=== PATIENT | female | born 1960 ===

== ENCOUNTER 2025-04-21 18:42 | Inpatient (IN) | payer MEDICARE, BC, SELFPAY ==
[2025-04-21] VITALS (7 sets, daily range): BP systolic 106–125; BP diastolic 60–75; BMI 19.3; BMI 18.9
[2025-04-21 14:00] LABS: Hematocrit 37.2 % (37.0-47.0); Hemoglobin 12.3 g/dL (12.0-16.0); Mean Corp Hgb Conc. 33.1 g/dL (33.0-37.0); Mean Corpuscular Volume 93.0 fL (81.0-99.0); Nucleated Red Blood Cells % 0 %; Platelet Count 488 10^3/uL (130-400); Red Cell Dist. Width 13.7 % (11.5-14.5)
[2025-04-21 14:15] LABS: ALT (SGPT) 27 U/L (0-35); AST (SGOT) 37 U/L (14-36); Albumin 3.8 g/dl (3.5-5.0); Alkaline Phosphatase 363 U/L (38-126); Blood Urea Nitrogen 22 mg/dl (7-17); Calcium 9.1 mg/dl (8.4-10.2); Carbon Dioxide 26 mmol/L (22-30); Chloride 98 mmol/L (98-107); Estimated Creatinine Clearance 47 ml/min; Glucose 166 mg/dl (70-99); Potassium 4.7 mmol/L (3.5-5.1); Sodium 133 mmol/L (135-145); Total Protein 6.6 g/dl (6.3-8.2); eGFR > 60.00
[2025-04-21 14:19] LABS: Magnesium 2.0 mg/dl (1.6-2.3)
[2025-04-21] MEDS: NSS 1000 IV (14:36)
[2025-04-21] MEDS: OMNIPAQUE 50 ML PO (14:36)
[2025-04-21] MEDS: DILAUDID 1 MG IV ×2 (14:36→15:05)
[2025-04-21] MEDS: ZOFRAN 4 MG IV (14:36)
--- NOTE | 2025-04-21 17:30 | ED.GENMED ---
History of Present Illness
General
Chief Complaint: Abdominal Symptoms
Time Seen by Provider: 04/21/25 13:39
History of Present Illness
History of Present Illness:
see MDM
Phy Exam
Physical Exam
Physical Exam:
GENERAL: Alert, uncomfortable, dry
EYE: pupils equal and reactive
NECK: Supple
ENT: o/p clr, dry mouth.
CARDIAC: Regular rate and rhythm .
LUNGS: Clear breath sounds bilaterally, no acute respiratory distress, no wheezes/rales/rhonchi
ABDOMEN: soft, mild distended, very tender diffusely, gadiel lower no r/g, no cvat, normal bowel sounds
NEUROLOGICAL: Alert and oriented, no focal neuro deficits
SKIN: Warm and dry, skin intact.
MUSCULOSKELETAL: No edema, well perfused. neg vinnie's sign
PSYCH: Normal and appropriate interaction.
Course
Orders/Labs/Results
Orders:
Orders
04/21/25 13:48
CMP [Comprehensive Metabolic Panel] Urgent
Complete Blood Count/With Diff Urgent
Magnesium Urgent
Comment: ADD ON
04/21/25 14:03
0.9% Sodium Chloride 1000 ml [Nss] 1,000 ml IV BOLUS
HYDROmorphone [Dilaudid] 1 mg IV NOW STA
Iohexol [Omnipaque] See Protocol PO NOW STA
Ondansetron Injectable [Zofran] 4 mg IV NOW STA
04/21/25 14:04
Add On- LAB Urgent
Tests Added?: magnesium
Electrocardiogram (*1) Urgent
Reason for Study: Abdominal Pain
CT Abd/pel W Iv And Oral Contr Urgent
Comment:
Reason For Exam: diarrhea, lower abd pain, h/o vulvar melanoma
EKG- Treatment ONCE
04/21/25 14:57
HYDROmorphone [Dilaudid] 1 mg IV NOW STA
04/21/25 17:12
C DIFF [C difficile Antigen & Toxins] Urgent
KAYLEIGH Source: Feces/Stool
Specimen Description:
Date Specimen was Collected: 04/21/25
Time Specimen was Collected: 17:10
Stool Culture Urgent
KAYLEIGH Source: Feces/Stool
Specimen Description:
Date Specimen was Collected: 04/21/25
Time Specimen was Collected: 17:10
04/21/25 17:36
HYDROmorphone [Dilaudid] 2 mg IV NOW STA
04/21/25 17:55
HYDROmorphone [Dilaudid] 1 mg .ROUTE .STK-MED ONE
04/21/25 18:02
Admit/Transfer Patient As Directed
Co-Sign Provider:
Level of Care: Inpatient admission
Assign to:: Medical/Surgical
Physician / Group: cori
Diagnosis: proctocolitis
Reason for Hospitalization: proctocolitis
Expected length of stay greater than two midnights?: Yes
ELOS- Estimated Length of Stay in days: 3
I certify the patient meets the requirements for IP care: Yes
PRN Pain Medication Management As Directed
May give lesser potent ordered pain med per pt: Yes
preference::
Protocol:: Medication orders for pain may be administered in a
manner that supports deferring to patient preference
when the pt is:
- Requesting an ordered lesser potent pain medication.
Least to most potent pain medications are defined
as: acetaminophen < NSAID < tramadol < opioids
(morphine, oxycodone, hydromorphone).
- Requesting a lesser dose of the same medication IF
ORDERED.
- Requesting a less intrusive route of administration
if both routes are prescribed by the provider (PO <
IV).
04/21/25 18:04
Code Status As Directed
Resuscitation Status: Full Code
Abnormal Lab Results
04/21/25
13:48
WBC 16.7 H 10^3/uL
(4.8-10.8)
RBC 4.00 L 10^6/uL
(4.20-5.40)
Plt Count 488 H 10^3/uL
(130-400)
Abs Immat Gran (auto) 0.1 H 10^3/uL
(0-0.05)
Absolute Neuts (auto) 14.3 H 10^3/uL
(1.4-6.5)
Absolute Lymphs (auto) 0.8 L 10^3/uL
(1.2-3.4)
Absolute Monos (auto) 1.4 H 10^3/uL
(0.1-0.6)
Neutrophils % 85.8 H %
(42.2-75.2)
Lymphocytes % 4.9 L %
(20.5-51.1)
Sodium 133 L mmol/L
(135-145)
BUN 22 H mg/dl
(7-17)
Glucose 166 H mg/dl
(70-99)
AST 37 H U/L
(14-36)
Alkaline Phosphatase 363 H U/L
(38-126)
04/21/25 13:48
04/21/25 13:48
Vital Signs
Initial and Last Documented VS:
Initial Vital Signs
Temp Pulse Resp BP Pulse Ox
36.9 C 98 16 106/72 95
04/21/25 12:51 04/21/25 12:51 04/21/25 12:51 04/21/25 12:51 04/21/25 12:51
Last Documented Vital Signs
Temp Pulse Resp BP Pulse Ox
36.9 C 98 16 117/75 94
04/21/25 12:51 04/21/25 12:51 04/21/25 12:51 04/21/25 19:00 04/21/25 19:15
MDM/Problems Addressed
Differential Diagnosis Includes:
see MDM
MDM/Problems Addressed:
Note:
CHIEF COMPLAINT(S)
Persistent diarrhea and abdominal pain for two and a half weeks, with associated weight loss and dehydration.
HISTORY OF PRESENT ILLNESS
The patient is a 65-year-old female who presents with a two and a half week history of persistent diarrhea and abdominal pain. The diarrhea initially began with clear mucus but progressed to being more frequent and now predominantly consists of
mucus. The patient reports a significant decrease in oral intake and has been unable to eat for the past four days, resulting in weight loss, noted subjectively by the looseness of her clothing. The patient describes the abdominal pain as being
primarily in the lower abdomen but states it is more generalized at times. She notes that everything she consumes exacerbates her symptoms leading her to refrain from eating or drinking. The patient also experiences significant bloating and
discomfort when supine.
The patient has a history of vulvar cancer diagnosed in 2018, with previous treatment including radiation therapy and prescription medications. She also reports having had Clostridium difficile infection in September during a hospitalization for a
kidney infection. The current symptoms are reported as more painful than her previous C. difficile infection.
The patient has not traveled recently and denies the use of antibiotics in the recent past. She has not been hospitalized for any new condition and is currently not vomiting, although she experiences dry heaving with oral intake.
PAST MEDICAL AND SURGICAL HISTORY
- Vulvar cancer diagnosed in 2018
- Clostridium difficile infection in September during hospitalization for kidney infection
CHRONIC MEDICAL CONDITIONS SIGNIFICANTLY AFFECTING CARE
- History of vulvar cancer
SOCIAL DETERMINANTS AFFECTING HEALTH
The patient mentioned [place] [facility] [place] and grandchildren, indicating family-related social motivations for seeking health improvement.
PHYSICAL EXAM
- Abdomen: Tender upon examination, especially in the lower regions. Discomfort is noted when the patient lays flat. Signs of bloating present.
- Nursing notes reviewed and vital signs reviewed.
PLAN
1. Administer intravenous fluids for dehydration.
2. Provide anti-nausea medication (Zofran) and pain management with Dilaudid.
3. Conduct a computed tomography (CT) scan of the abdomen with oral and intravenous contrast, contingent upon the patient�s ability to tolerate oral intake.
4. Encourage oral intake for CT scan preparation. Adjust plan based on patient�s tolerance and symptoms.
5. Collect stool sample to test for Clostridium difficile, contingent upon bowel movement.
6. Blood work to check for electrolyte disturbances.
7. Consider inpatient observation for supportive care if warranted by findings.
8. Discuss potential diagnosis of colitis and further treatment options after investigation.
DIFFERENTIAL DIAGNOSIS
The Differential Diagnosis includes, in no particular order and is not limited to:
1. Clostridium difficile infection
2. Colitis (infectious, inflammatory)
3. Bowel obstruction
4. Diverticulitis
5. Irritable bowel syndrome with diarrhea
6. Ischemic colitis
7. Small bowel malignancy/metastatic disease
8. Malabsorption syndrome
9. Food intolerance or allergy
10. Electrolyte imbalance-related symptoms
CARE-UPDATE
04/21/25 - 17:25
The patient is experiencing significant pain and will receive additional pain medication. A CT scan has identified a long segment of wall thickening and mucosal enhancement in the mid-sigmoid area, consistent with proctocolitis, which could result
from a viral or bacterial infection. Stool testing is pending for C. diff infection confirmation. The patient also has endometrial thickening, warranting an outpatient ultrasound, and possible lung involvement, which may involve scarring or
infection. The patient will be admitted to the hospital for initial treatment, including IV fluids, bowel rest, pain management, and potentially antibiotics pending test results. If C. diff is confirmed, treatment will likely include vancomycin.
*Pulse Oximetry
SaO2: 95
Oxygen Mode of Delivery: Room air
Patient hypoxic: no (95)
*Critical Care Note
Total Time (30-74mins, 75-104mins- exclusive of procedures): Not Applicable
ED Attending Note
-
Portions of this chart may have been created with voice recognition software.� Occasional wrong word or��sound alike� substitutions may have occurred due to the inherent limitations of voice recognition software.
Discharge Plan
Departure
Patient Disposition: Admit
Date of Disposition: 04/21/25
Time of Disposition: 17:11
Admit to: Med/Surg
Presentation/result/management discussed w/ accepting MD/DO: Hospitalist
Condition: Fair
Covid-19: Not Applicable
Discharge Problem:
Proctocolitis
Interventions
Interventions:
*Risk Screen - Suicide Last Done: 04/21/25 12:53
*General Assessment Last Done: 04/21/25 13:33
*Neglect/Abuse Screening Last Done: 04/21/25 12:53
*ED- Fall Risk Assessment Last Done: 04/21/25 13:33
*ED COVID-19 Vaccine History Last Done: 04/21/25 13:33
NT-Vjviau-Huxvvrfbcv Assessment Last Done: 04/21/25 13:33
--- NOTE | 2025-04-21 17:42 | HPS.HSE ---
Addendum entered and electronically signed by Casey Ryan MD 04/21/25 18:29:
see update note for addendum
Original Note:
Family Physician
-
Family Physician: TARUN Maciel
Chief Complaint
-
abdominal pain, diarrhea
History of Present Illness
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 patient stated watery loose stool with mucous in it. patient stated very
poor oral intake. she has not had anything to eat for past few days. she noticed some weight loss. denied fever, chills. denied n/v. denied AYON, dizzy or syncope.denied chest pain, sob. denied dysuria or hematuria.
CT with proctocolitis. admitting for further management.
Medical History
Past Medical History
Past Medical History: Reports Other
Additional Past Medical History:
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
type 2 DM
HLD
Past Surgical History: Reports Other
Additional Past Surgical History:
b/l mastectomy
Social History
Tobacco: Non-smoker
Alcohol: None
Drug: None
Personal: Single
Living: Alone
Family History
Family History: Not pertinent
Allergies / Home Medications
Allergies reflects when Allergies were last updated in [facility].
Home Medications with original date entered in [facility]
Allergy/Medication List:
Allergies
Allergy/AdvReac Type Severity Reaction Status Date / Time
bacitracin (From Polysporin) Allergy Corneal Verified 06/08/21 06:29
Ulcerations
morphine Allergy Swelling, Verified 06/08/21 06:29
Redness @
IV site
polymyxin B Allergy Corneal Verified 06/08/21 06:29
Ulcerations
Home Medications
hydrocortisone 10 mg tablet 15 mg PO DAILY 06/04/21
lorazepam 0.5 mg tablet 0.5 mg PO HS 06/04/21
pravastatin 20 mg tablet 20 mg PO QPM 06/04/21
acetaminophen 500 mg tablet (Tylenol Extra Strength) 1,000 mg PO Q6HPRN PRN mild pain 06/08/21
fentanyl 25 mcg/hr transdermal patch 1 patch transdermal Q72H 04/21/25
hydromorphone 2 mg tablet 4 mg PO Q8HPRN PRN severe pains 04/21/25
methylphenidate HCl 5 mg tablet 5 mg PO BID 04/21/25
nilotinib HCl 200 mg capsule 200 mg PO BID 04/21/25
ondansetron HCl 8 mg tablet 8 mg PO [id number] PRN nausea 04/21/25
repaglinide 0.5 mg tablet 0.5 mg PO AC 04/21/25
Review of Systems
-
Constitutional: Reports No Symptoms
EENT: Reports No Symptoms
Respiratory: Reports No Symptoms
Cardiac: Reports No Symptoms
Abdomen/GI: Reports Abdominal Pain and Diarrhea
: Reports No Symptoms
Musculoskeletal: Reports No Symptoms
Skin: Reports No Symptoms
Neurological: Reports No Symptoms
Endocrine: Reports No Symptoms
Hematologic/Lymphatic: Reports No Symptoms
Psych: Reports No Symptoms
Physical Exam
Vital Signs
Vital Signs
Temp Pulse Resp BP Pulse Ox
98.4 F 98 16 125/75 95
04/21/25 12:51 04/21/25 12:51 04/21/25 12:51 04/21/25 16:30 04/21/25 17:33
Physical Exam
General: Well Developed, Well Nourished and No Apparent Distress
HEENT: NormoCephalic, Moist mucous membranes and Atraumatic
Respiratory: Clear
Cardiac: S1/S2 and Regular Rhythm; No Murmur or Rub
GI: Soft, Non Tender, Normal Bowel Sounds, Tender and Distended; No Organomegaly
Rectal: Deferred by Provider
Musculoskeletal: No Clubbing, No Cyanosis and No Edema
Skin: No Rash
Neuro: AO x 3 and Nonfocal/grossly intact
Psych: Calm
Laboratory Results
-
04/21/25 13:48
04/21/25 13:48
Laboratory Results
Total Bilirubin 1.1 mg/dl (0.2-1.3) 04/21/25 13:48
AST 37 U/L (14-36) H 04/21/25 13:48
ALT 27 U/L (0-35) 04/21/25 13:48
Alkaline Phosphatase 363 U/L (38-126) H 04/21/25 13:48
Data Reviewed
-
CT Scan: Report Reviewed by me
Lab Data: Labs Reviewed by me
Impression/Plan
-
# Diarrhea, abdominal pain secondary to proctocolitis
- Stool for cultures, C. difficile
- IV Zosyn
- WBC 16.7
-clear liquid diet, advance as tolerated
-Dilaudid prn for pain
- CT abdomen pelvis with impression of There is long segment wall thickening and mucosal hyperenhancement involving the mid sigmoid colon to the rectum consistent with proctocolitis.There is apparent endometrial thickening measuring approximately
1.2 cm. Recommend dedicated pelvic ultrasound for further evaluation.There is bronchiectasis with partial collapse of the right middle lobe as well as scattered airspace opacities within the visualized lung jay which may be
infectious/inflammatory in nature and can be seen with chronic/indolent infection.Mild compression deformity of the L4 vertebral body, likely chronic.
-GI consulted
#hxt of mucosal melanoma with mj to lung
-on oral meds, iv immunotherapy once a month
-fentanyl, hydrocortisone
#HLD
-statin
#type 2 Dm
-sliding scale
-on repaglinide
#DVT Prophylaxis
-Lovenox
#CODE status
-full code
[2025-04-21] MEDS: DILAUDID 2 MG IV (18:02)
--- NOTE | 2025-04-21 18:29 | W.PN.UPDATE ---
Update Note
Progress Note Update
I saw and examined the patient.
The ROBOTIC MAINTENANCE TECHNICIAN Joe's note was reviewed and I agree with the note.
Comment: 65 y/o F remote hx of C. Diff, mucosal Melanoma on chemo/immunotherapy (opduelag) presents with 2.5 week history of abdominal discomfort, diarrhea with mucous. Also reports poor oral intake and weight loss. Denies
fever/chills/nausea/vomiting. No other complaints.
in ER; CT shows proctocolitis. Patient admitted for further evaluation.
Exam:
General: Well Developed, Well Nourished and No Apparent Distress
HEENT: NormoCephalic, Moist mucous membranes and Atraumatic
Respiratory: Clear
Cardiac: S1/S2 and Regular Rhythm; No Murmur or Rub
GI: Soft, Non Tender, Normal Bowel Sounds, Tender and Distended; No Organomegaly
Rectal: Deferred by Provider
Musculoskeletal: No Clubbing, No Cyanosis and No Edema
Skin: No Rash
Neuro: AO x 3 and Nonfocal/grossly intact
Psych: Calm
Assessment: CT with proctocolitis. DDx: viral vs bacterial vs C. diff vs immune mediated colitis given OpDuelag treatment for cancer. Clears. IV Zosyn. C. Diff negative. pending Stool studies otherwise. NPO p MN in case of flex sig tomorrow to
evaluate immune colitis. GI consulted. continue chronic pain meds/patches.
--- NOTE | 2025-04-21 19:49 | EDRN ---
Report received, introduced myself to patient updated them on bed status, call chapman in reach.
[2025-04-21] MEDS: RITALIN PO (21:04)
[2025-04-21 21:27] LABS: Glucose - Point of Care 76 mg/dl (70-99)
[2025-04-21] MEDS: REMOVE DURAGESIC PATCH 1 PATCH REMOVE (21:47)
[2025-04-21] MEDS: ATIVAN 0.5 MG PO (21:47)
[2025-04-21] MEDS: DURAGESIC 25 MCG/HR PATCH 1 PATCH TRANSDERM (21:47)
[2025-04-21] MEDS: ZOSYN 50 IV (21:49)
[2025-04-21] MEDS: TYLENOL 650 MG PO (21:49)
[2025-04-21] MEDS: DILAUDID 0.5 MG IV (21:50)
[2025-04-22] MEDS: ZOSYN 50 IV ×4 (03:46→22:16)
[2025-04-22] MEDS: DILAUDID 0.5 MG IV ×4 (03:48→17:31)
--- NOTE | 2025-04-22 04:36 | PTCARENOTE ---
Patient arrived on unit @2004 via stretcher from ED, ambulate to bed with standby assist. Patient AAOx3 , oriented to unit, skin assessment completed, call chapman within reach.
[2025-04-22] MEDS: ZOFRAN 4 MG IV ×2 (06:33→14:03)
[2025-04-22 07:00] VITALS: BP 91/58
[2025-04-22 07:25] LABS: Glucose - Point of Care 79 mg/dl (70-99)
[2025-04-22] MEDS: NOVOLOG FLEXPEN-LOW RESISTANCE SC ×3 (07:33→18:40)
[2025-04-22 07:55] LABS: Hematocrit 36.6 % (37.0-47.0); Hemoglobin 12.0 g/dL (12.0-16.0); Mean Corp Hgb Conc. 32.8 g/dL (33.0-37.0); Mean Corpuscular Volume 93.6 fL (81.0-99.0); Platelet Count 511 10^3/uL (130-400); Red Cell Dist. Width 13.6 % (11.5-14.5)
[2025-04-22] MEDS: PRANDIN 0.5 MG PO (08:06)
[2025-04-22] MEDS: RITALIN 5 MG PO (08:06)
[2025-04-22] MEDS: TYLENOL 650 MG PO ×3 (08:06→22:16)
[2025-04-22] MEDS: CORTEF 15 MG PO (08:06)
[2025-04-22] MEDS: LR 1000 IV ×2 (08:10→20:29)
[2025-04-22 08:42] LABS: Blood Urea Nitrogen 18 mg/dl (7-17); Calcium 8.7 mg/dl (8.4-10.2); Carbon Dioxide 25 mmol/L (22-30); Chloride 103 mmol/L (98-107); Estimated Creatinine Clearance 46 ml/min; Glucose 73 mg/dl (70-99); Potassium 4.2 mmol/L (3.5-5.1); Sodium 135 mmol/L (135-145); eGFR > 60.00
[2025-04-22 10:23] LABS: Glycohemoglobin (HgbA1c) 5.6 % (4.0-5.6)
--- NOTE | 2025-04-22 10:42 | W.PN.HOSP.TC ---
Today's Communication/Plan
-
See PN
Assessment / Plan
Assessment / Plan
65yo F with PMHx of mucosal melanoma, managed by Dr.Melanie Vasquez in [facility] on Opdualag with most recent injection done few weeks ago came with worsening weakness, mucoid diarrhea, later switched to watery and lower abdominal pain. CT
showed long segment wall thickening and mucosal hyperenhancement involving the mid sigmoid colon to the rectum consistent with proctocolitis. Patient also developed fevers
A/P:
#Proctocolitis
C.diff neg
Stool Cx
GI consult
Cannot exclude immunotherapy-induced colitis - plan for increased steroids if infectious w/u neg
#Fever
2/2 colitis vs other
with immunosuppression reasonable to exclude other causes: Bcx, Ua, Chest XR
Zosyn
#Mucosal melanoma
cont Nilotinib as discussed with
Oncology consult
cont hydrocortisone
#HLD
#Chronic pain
cont home meds
#Malnutrition with cahexia
BMI 18.8
2/2 CA
when appropriate - use Ensure
DVT ppx hep
Full code
I have spent at least 59min reviewing chart, test results, communication with outside provider, consultants and providing direct patient care
Anticipated Discharge: > 48 hours
Subjective/Interval History
-
Date of Service: April 22, 2025
Objective Data
-
Labs:
Laboratory Results
04/22/25
07:21
WBC 13.9 H
Hgb 12.0
Hct 36.6 L
Plt Count 511 H
Sodium 135
Potassium 4.2
Chloride 103
Carbon Dioxide 25
BUN 18 H
Creatinine 0.8
Glucose 73
Calcium 8.7
Vital Signs:
Vital Signs
Temp Pulse Resp BP Pulse Ox
103.0 F H 113 20 91/58 93
04/22/25 07:00 04/22/25 07:00 04/22/25 07:00 04/22/25 07:00 04/22/25 07:00
I&O
04/21/25 04/22/25 04/23/25
06:59 06:59 06:59
Intake Total 200 / 200
Balance 200 / 200
Review of Systems
-
History Source: Patient
All other systems: Reviewed and negative
Physical Exam
-
General: Comfortable
HEENT: Normocephalic
Respiratory: Clear to Auscultation
GI: Soft, Nondistended and Tender
Musculoskeletal: No Clubbing, No Cyanosis and No Edema
Psych: Calm
--- NOTE | 2025-04-22 10:54 | CON.GI ---
Addendum entered and electronically signed by Lillie Bourne MD 04/22/25 17:46:
I saw and examined the patient.
The Resident's note was reviewed and I agree with the note.
Comment: 65-year-old female with history of metastatic melanoma, currently on chemotherapy and immune therapy (Opdualag in last 3 months), presenting with complaints of diarrhea and abdominal cramping in the last week. As per the patient, she has
had frequent stool with mucus in the last 2-1/2 weeks, up to 6 times a day with some nocturnal episodes but in the last week since last she has had lower abdominal cramping and multiple loose watery stool. No blood or mucus. No previous
similar episodes. She has been on chemo for at least 3-1/2 to 4 years and not had diarrhea on that. She was not immune therapy called Opdivo for at least 3 years but recently switched to Opdualag 3 months ago. She has some baseline nausea which
is worse now, no vomiting. No heartburn or trouble swallowing. Prior bowel pattern was 1-2 formed stool a day. No previous history of GI bleeding. Colonoscopy 2 or 3 years ago at [place] unremarkable as per patient. No sick contacts, recent
antibiotics. No other recent new medication.
Labs show mild leukocytosis, mild elevation in AST and alkaline phosphatase elevated at 363. CT scan of the abdomen pelvis with IV and oral contrast showing long segment of wall thickening and mucosal hyperenhancement involving the mid sigmoid
colon to the rectum consistent with proctocolitis. Also noted is moderate colonic stool burden.
Stool studies negative for C. difficile, Cryptosporidium, Giardia, stool cultures pending but many white cells noted.
She is on chronic fentanyl and hydromorphone. Chronic steroid use as well.
Abdominal exam shows mild discomfort in the lower abdomen and mild distention noted as well.
- Acute diarrhea in the last 2-1/2 weeks, no new medication or antibiotic use but recent switch in immunotherapy to Opdualag 3 months ago.
Rule out infectious, inflammatory versus immune mediated diarrhea.
Await stool cultures.
Given mild abdominal distention, will get abdominal x-ray to evaluate for fecal burden in the setting of fentanyl and hydromorphone use.
If diarrhea persists and stool cultures negative, will do flexible sigmoidoscopy to evaluate for immune mediated diarrhea.
Currently on clear liquid diet, will advance as tolerated.
Will follow
Original Note:
Consultation
-
Date/Time Consultation Requested: 04/21/25 20:08
Date/Time Consultation Performed: 04/22/25 10:00
Requesting Provider: Lisbteh Diaz
Performing Provider: Keyur Vásquez DO (Resident); Lillie Bourne MD
Reason for Consultation: Colitis
Medical History
Chief Complaint / HPI
Chief Complaint: Abdominal Discomfort, Diarrhea
History of Present Illness:
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 Patient
states that she was in her usual state of health prior to onset of symptoms. Patient's normal bowel habits consisited of 2 smaller volume, well formed stools per day without diarrhea. Patient states that the abdominal pain started 2 weeks ago and it
is described as crampy and localized to the lower abdomen. It is worse with eating, and better with pain medications. She states that it does not get better with defecation and that it is more constant. Her diarrheal symptoms also started 2 weeks
ago. At first diarrhea consisted of concurrent well formed stools and water, however stools became more consistently runny, progressively worsening to pure liquid stools with mucous but no blood. Otherwise, the patient endoses decreased PO intake
and nausea. She notes that she is usually nauseous at baseline due to chemo regimen, but over the course of this specific illness her nausea has been worse than usual.
With regards to cancer tx regimen, patient notes that she was taking Opdivo until 3 months ago, when she was switched to Opdulag.
Patient denies a family history of colon CA or IBD. Her last colonoscopy was a few years ago, polyps were taken, but were benign. She denies any recent NSAID use.
ED Course:
AFVSS, tender and mildly distended abdomen, WBC 16.7, plt 488, AST/ALT 36/27, Alk Phos 363, T Bili 1.1.
CT Abd/Pelvis: Long segment wall thickening/mucosal hyperenhancement of mid-sigmoid colon to rectum c/w proctocolitis.
C Diff Neg. Patient admitted for IV abx (Zosyn).
Today, the patient states that she is feeling better in that her pain is well controlled on Dilaudid (normally gets for lower back pain), and that her diarrhea episodes have decreased to 3-4 since admission, though she endorses this to not eating.
She says that she is hungry and would like to eat thicker liquids if possible.
Past Medical History
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 Diff)
Past Surgical History: Other (Bilateral mastectomy, x 2, melanoma resection)
Social History
Tobacco: Non-Smoker
Alcohol: None
Family History
Family History: Other (No family history of colon CA or IBD. )
Allergies / Home Medications
Allergy/AdvReac Type Severity Reaction Status Date / Time
bacitracin (From Polysporin) Allergy Corneal Verified 06/08/21 06:29
Ulcerations
morphine Allergy Swelling, Verified 06/08/21 06:29
Redness @
IV site
polymyxin B Allergy Corneal Verified 06/08/21 06:29
Ulcerations
�Medication �Instructions �Recorded
hydrocortisone 10 mg tablet 15 mg PO DAILY 06/04/21
lorazepam 0.5 mg tablet 0.5 mg PO HS 06/04/21
pravastatin 20 mg tablet 20 mg PO QPM 06/04/21
acetaminophen 500 mg tablet 1,000 mg PO Q6HPRN PRN mild pain 06/08/21
(Tylenol Extra Strength)
fentanyl 25 mcg/hr transdermal 1 patch transdermal Q72H 04/21/25
patch
hydromorphone 2 mg tablet 4 mg PO Q8HPRN PRN severe pains 04/21/25
methylphenidate HCl 5 mg tablet 5 mg PO BID 04/21/25
nilotinib HCl 200 mg capsule 200 mg PO BID 04/21/25
ondansetron HCl 8 mg tablet 8 mg PO [id number] PRN nausea 04/21/25
repaglinide 0.5 mg tablet 0.5 mg PO AC 04/21/25
Review of Systems
-
History Source: Patient
All other systems: A 12 pt ROS was Negative except as stated above in HPI
Vital Signs
Temp Pulse Resp BP Pulse Ox
103.0 F H 113 20 91/58 93
04/22/25 07:00 04/22/25 07:00 04/22/25 07:00 04/22/25 07:00 04/22/25 07:00
Physical Exam
Exam
General: No Apparent Distress
HEENT: Anicteric
GI: Soft, Normal Bowel Sounds, Tender (diffusely mild tenderness to palpation with moderate tenderness to palpation in the LLQ) and Distended (mild); Negative Organomegaly
Skin: Warm
Neuro: Awake
Psych: Calm
Results
WBC 13.9 10^3/uL (4.8-10.8) H 04/22/25 07:21
Hgb 12.0 g/dL (12.0-16.0) 04/22/25 07:21
Hct 36.6 % (37.0-47.0) L 04/22/25 07:21
MCV 93.6 fL (81.0-99.0) 04/22/25 07:21
Plt Count 511 10^3/uL (130-400) H 04/22/25 07:21
Absolute Neuts (auto) 14.3 10^3/uL (1.4-6.5) H 04/21/25 13:48
Sodium 135 mmol/L (135-145) 04/22/25 07:21
Potassium 4.2 mmol/L (3.5-5.1) 04/22/25 07:21
Chloride 103 mmol/L (98-107) 04/22/25 07:21
Carbon Dioxide 25 mmol/L (22-30) 04/22/25 07:21
BUN 18 mg/dl (7-17) H 04/22/25 07:21
Creatinine 0.8 mg/dL (0.6-1.0) 04/22/25 07:21
Calcium 8.7 mg/dl (8.4-10.2) 04/22/25 07:21
Total Bilirubin 1.1 mg/dl (0.2-1.3) 04/21/25 13:48
AST 37 U/L (14-36) H 04/21/25 13:48
ALT 27 U/L (0-35) 04/21/25 13:48
Alkaline Phosphatase 363 U/L (38-126) H 04/21/25 13:48
Diagnostic Image Results:
CT Abd/Pelv (04/21):
long segment wall thickening and mucosal hyperenhancement involving the mid sigmoid colon to the rectum consistent with proctocolitis
There is no abdominal aortic aneurysm. Mild atherosclerotic calcifications of the abdominal aorta
Prior GI Procedures:
EGD: unknown.
Colonoscopy: colonoscopy a few years ago, benign polyps (subjective, old records not in [facility])
Assessment / Plan
-
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 In the
emergency department she presented with tender and mildly distended abdomen, WBC 16.7, plt 488, AST/ALT 36/27, Alk Phos 363, T Bili 1.1. CT imaging showed long segment wall thickening and mucosal hyperenhancement involving the mid sigmoid colon to
the rectum consistent with proctocolitis. DDx includes infectious colitis, inflammatory colitis, or immune mediated colitis in the setting of immunotherapy with Opdualag. Ischemic colitis was considered, but CT scan without evidence of arterial
narrowing.
#Proctocolitis
#Nonbloody Mucoid Diarrhea
#Leukocytosis and Fever
#Current Immunotherapy Use
-Continue Abx
-Follow Stool Studies/Cx/WBC
-Follow Stool Frequency/Consistency
-If stool studies are negative and sx don't improve, consider flex sig
-Hold Opdualag/Nilotinib per Heme/Onc
Total Time Spent with Patient (in minutes): 32
Data Reviewed
-
CT Scan: Image Personally Visualized and interpreted, Report Reviewed by me and Discussed with Patient
-
-
Thank you for consultation and allowing me to participate in the patient's care. Please call the comparison shopper GI physician during the after hours with any questions or concerns.
--- NOTE | 2025-04-22 10:56 | PTCARENOTE ---
At 1045 MD was TT to clarify lunch dose of Prandin. Pt is NPO. Med DC'd. See Nov.
--- NOTE | 2025-04-22 11:26 | CON.ONC ---
Consultation
-
Date Consultation Requested: 04/22/25
Date Consultation Performed: 04/22/25
Requesting Provider: Dr. Robert Fay
Performing Provider: Dr. Yuliya Stewart
Reason for Consultation: mucosal melenoma
Impression
Impression
metastatic melanoma on opdualag (nivolmab/relatlimab) plus nilotinib
non-bloody diarrhea -proctocolitis
fever
leukocytosis
Plan
Plan
follow cultures
hold opdualag nivolmab/relatlimab, nilotinib
f/u GI consult
symptom support
OP follow up with Dr. Vasquez for next steps in metastatic melanoma management
Patient History
History of Present Illness
65yo F with PMH early stage breast cancer treated with bilateral mastectomy in 2001 and metastatic melanoma who presented with diarrhea and weakness. She reports that non-bloody diarrhea has been on going for 2 weeks. She became weak and
dehydrations which prompted her to seek further evaluation at . She has abdominal cramping, nausea, and diarrhea that has affected her ability to eat and drink over the past 2 weeks. Initial evaluation was notable for WBC 16.7, Hgb 12.3, platelet
count 488, 000, nml renal function, AST 37, ALT 27, Alk phos 363. Her CT ab/pelvis showed proctocolitis. Her C. diff is negative, stool cultures and blood cultures are pending. She has been admitted and started on IVF and IV abx.
In brief, she sees Dr. Vasquez for management of her metastatic melanoma. She was diagnosed with localized melanoma in the mucosa of her vaginal that was treated with surgical resection around 2018. She was monitored with serial imaging and
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 She was treated with Ipi/Nivo x 4 cycles c/b IO adrenal insufficiency. She continues to take hydrocortisone 15mg daily. She is being treated with opdualag
(nivolmab/relatlimab) plus nilotinib. She is on chronic pain medications fentanyl patch and hydromorphone prn.
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
Tmax 103F, no hypoxia or hypotension
Past-Medical/Surgical History
PMH HLD, metastatic melanoma to lungs, breast cancer, type 2 DM
PSH b/l mastectomy
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
Family non contributory
Patient Medication
�Medication �Instructions �Recorded �Confirmed �Last Taken �Type
hydrocortisone 10 mg tablet 15 mg PO DAILY 06/04/21 04/21/25 04/21/25 History
lorazepam 0.5 mg tablet 0.5 mg PO HS 06/04/21 04/21/25 04/20/25 History
pravastatin 20 mg tablet 20 mg PO QPM 06/04/21 04/21/25 06/07/21 08:00 History
acetaminophen 500 mg tablet 1,000 mg PO Q6HPRN PRN mild pain 06/08/21 04/21/25 04/21/25 History
(Tylenol Extra Strength)
fentanyl 25 mcg/hr transdermal 1 patch transdermal Q72H 04/21/25 04/21/25 04/21/25 History
patch
hydromorphone 2 mg tablet 4 mg PO Q8HPRN PRN severe pains 04/21/25 04/21/25 Unknown History
methylphenidate HCl 5 mg tablet 5 mg PO BID 04/21/25 04/21/25 Unknown History
nilotinib HCl 200 mg capsule 200 mg PO BID 04/21/25 04/21/25 04/21/25 History
ondansetron HCl 8 mg tablet 8 mg PO [id number] PRN nausea 04/21/25 04/21/25 Unknown History
repaglinide 0.5 mg tablet 0.5 mg PO AC 04/21/25 04/21/25 Unknown History
Active Medications
Generic Name Dose Route Start Last Admin
Trade Name Freq PRN Reason Stop Dose Admin
Acetaminophen 650 mg 04/21/25 20:08 04/22/25 08:06
Acetaminophen 325 Mg Tablet PO 05/19/25 20:07 650 mg
Q4HPRN PRN Administration
mild pain/AYON/temp> 100.4F
Dextrose 12.5 grams 04/21/25 20:08
Dextrose 50% (0.5 Grams/Ml) 50 Ml Syringe IV 05/19/25 20:07
[id number] PRN
hypoglycemia
Protocol
Fentanyl 1 patch 04/21/25 22:00 04/21/25 21:47
Fentanyl 25 Mcg/Hr Patch TRANSDERM 05/05/25 21:59 1 patch
Q72H IRMA Administration
Glucagon 1 mg 04/21/25 20:08
Glucagon 1 Mg Vial IM 05/19/25 20:07
PRN PRN
hypoglycemia
Protocol
Heparin Sodium 5,000 units 04/22/25 16:00
Heparin 5,000 Units/Ml 1 Ml Vial SC 05/20/25 15:59
Q8 IRMA
Hydrocortisone 15 mg 04/22/25 08:00 04/22/25 08:06
Hydrocortisone 10 Mg Tablet PO 05/20/25 07:59 15 mg
DAILY IRMA Administration
Hydromorphone HCl 0.5 mg 04/21/25 20:08 04/22/25 08:16
Hydromorphone 0.5 Mg/0.5 Ml Syringe IV 05/05/25 20:07 0.5 mg
Q4HPRN PRN Administration
severe pain
Piperacillin Sod/Tazobactam Sod 3.375 gram in 50 mls @ 100 mls/hr 04/21/25 22:00 04/22/25 10:21
Zosyn IV 50 mls
Q6H IRMA Administration
Lactated Ringer's 1,000 mls @ 100 mls/hr 04/22/25 08:00 04/22/25 08:10
Lr IV 1,000 mls
.Q10H IRMA Administration
Insulin Aspart 0 units 04/22/25 06:30 04/22/25 07:33
Insulin Aspart Low Resistance 300 Units/3 Ml Pen.Injctr SC 05/20/25 06:29 Not Given
Q6 IRMA
Protocol
Lorazepam 0.5 mg 04/21/25 22:00 04/21/25 21:47
Lorazepam 0.5 Mg Tablet PO 05/19/25 21:59 0.5 mg
HS IRMA Administration
Methylphenidate HCl 5 mg 04/21/25 20:08 04/22/25 08:06
Methylphenidate 5 Mg Tablet PO 05/05/25 20:07 5 mg
BID AT 0800,1700 IRMA Administration
Non-Formulary Medication 200 mg 04/22/25 10:45
Nilotinib PO 05/20/25 10:44
BID IRMA
Patch Removal 0 patch 04/21/25 22:00 04/21/25 21:47
Remove Fentanyl Patch REMOVE 05/05/25 21:59 1 patch
Q72H IRMA Administration
Pravastatin Sodium 20 mg 04/22/25 18:00
Pravastatin 20 Mg Tablet PO 05/20/25 17:59
QPM IRMA
Sodium Chloride 0 flush 04/21/25 21:00
Sodium Chloride 0.9% (Flush) Syringe IV 05/19/25 20:59
PER PROTOCOL IRMA
Review of Systems
-
ROS is notable for HPI, otherwise negative
Physical Exam
-
General: Thin, No Apparent Distress
HEENT: Moist mucous membranes
Respiratory: Clear
Cardiac: S1/S2 and Regular Rhythm
GI: Soft, TTP
Integ no rash
Neuro: AO x 3
Psych: Calm
Labs
Lab Results
WBC 13.9 10^3/uL (4.8-10.8) H 04/22/25 07:21
RBC 3.91 10^6/uL (4.20-5.40) L 04/22/25 07:21
Hgb 12.0 g/dL (12.0-16.0) 04/22/25 07:21
Hct 36.6 % (37.0-47.0) L 04/22/25 07:21
MCV 93.6 fL (81.0-99.0) 04/22/25 07:21
MCH 30.7 pg (27.0-31.0) 04/22/25 07:21
MCHC 32.8 g/dL (33.0-37.0) L 04/22/25 07:21
RDW 13.6 % (11.5-14.5) 04/22/25 07:21
Plt Count 511 10^3/uL (130-400) H 04/22/25 07:21
MPV 10.1 fL (7.4-10.4) 04/22/25 07:21
Abs Immat Gran (auto) 0.1 10^3/uL (0-0.05) H 04/21/25 13:48
Absolute Neuts (auto) 14.3 10^3/uL (1.4-6.5) H 04/21/25 13:48
Absolute Lymphs (auto) 0.8 10^3/uL (1.2-3.4) L 04/21/25 13:48
Absolute Monos (auto) 1.4 10^3/uL (0.1-0.6) H 04/21/25 13:48
Absolute Eos (auto) 0.0 10^3/uL (0-0.7) 04/21/25 13:48
Absolute Basos (auto) 0.1 10^3/uL (0-0.2) 04/21/25 13:48
Immature Gran % 0.4 % (0-0.5) 04/21/25 13:48
Neutrophils % 85.8 % (42.2-75.2) H 04/21/25 13:48
Lymphocytes % 4.9 % (20.5-51.1) L 04/21/25 13:48
Monocytes % 8.2 % (1.7-9.3) 04/21/25 13:48
Eosinophils % 0.2 % (0-6) 04/21/25 13:48
Basophils % 0.5 % (0-2) 04/21/25 13:48
Creatinine 0.8 mg/dL (0.6-1.0) 04/22/25 07:21
Vital Signs
Vital Signs
Temp Pulse Resp BP Pulse Ox
103.0 F H 113 20 91/58 93
04/22/25 07:00 04/22/25 07:00 04/22/25 07:00 04/22/25 07:00 04/22/25 07:00
[2025-04-22 11:58] LABS: Glucose - Point of Care 42 mg/dl (70-99)
[2025-04-22] MEDS: DEXTROSE 50% SYRINGE 12.5 GRAMS IV (11:59)
[2025-04-22 12:24] LABS: Glucose - Point of Care 130 mg/dl (70-99)
[2025-04-22 12:36] VITALS: BMI 18.9
[2025-04-22 13:18] LABS: Urine Character Clear (Clear)
--- NOTE | 2025-04-22 13:37 | PTCARENOTE ---
Pt c/o unrelieved nausea. made aware, new order provided, see MAR.
[2025-04-22 14:27] LABS: Glucose - Point of Care 78 mg/dl (70-99)
[2025-04-22 15:00] VITALS: BP 98/51
[2025-04-22 15:10] LABS: Urine Squamous Cell 16-20 /LPF (Few)
[2025-04-22 15:11] LABS: Urine Red Blood Cell >100 /HPF (0-2)
[2025-04-22 16:09] LABS: Glucose - Point of Care 106 mg/dl (70-99)
[2025-04-22] MEDS: HEPARIN 5000 UNITS SC (16:18)
--- NOTE | 2025-04-22 17:00 | PTCARENOTE ---
Pt c/o of unrelieved pain with 0.5 mg Dilaudid Q4H. Pain was 7/10 in the lower abdomen. Tylenol was given for breakthrough pain with no relieve. TT , new order provided. See MAR
[2025-04-22] MEDS: RITALIN PO (18:05)
[2025-04-22] MEDS: PRAVACHOL 20 MG PO (18:40)
[2025-04-22 21:51] LABS: Glucose - Point of Care 81 mg/dl (70-99)
[2025-04-22] MEDS: ATIVAN 0.5 MG PO (22:16)
[2025-04-22 23:00] VITALS: BP 145/86
[2025-04-23] VITALS (67 sets, daily range): BP systolic 55–139; BP diastolic 40–96; PULSE 160
[2025-04-23] MEDS: HEPARIN 5000 UNITS SC ×3 (00:19→23:18)
[2025-04-23 00:23] LABS: Glucose - Point of Care 83 mg/dl (70-99)
[2025-04-23] MEDS: NOVOLOG FLEXPEN-LOW RESISTANCE SC ×2 (00:26→06:18)
[2025-04-23] MEDS: ZOSYN 50 IV ×2 (04:21→09:42)
[2025-04-23] MEDS: LR 1000 IV (04:21)
[2025-04-23 04:23] LABS: Glucose - Point of Care 50 mg/dl (70-99)
[2025-04-23 05:17] LABS: Glucose - Point of Care 63 mg/dl (70-99)
[2025-04-23 05:38] LABS: Glucose - Point of Care 71 mg/dl (70-99)
[2025-04-23 06:45] LABS: Hematocrit 36.9 % (37.0-47.0); Hemoglobin 12.3 g/dL (12.0-16.0); Mean Corp Hgb Conc. 33.3 g/dL (33.0-37.0); Mean Corpuscular Volume 92.3 fL (81.0-99.0); Platelet Count 487 10^3/uL (130-400); Red Cell Dist. Width 13.4 % (11.5-14.5)
[2025-04-23 06:59] LABS: ALT (SGPT) 17 U/L (0-35); AST (SGOT) 30 U/L (14-36); Albumin 2.8 g/dl (3.5-5.0); Alkaline Phosphatase 235 U/L (38-126); Blood Urea Nitrogen 24 mg/dl (7-17); Calcium 8.0 mg/dl (8.4-10.2); Carbon Dioxide 22 mmol/L (22-30); Chloride 104 mmol/L (98-107); Estimated Creatinine Clearance 28 ml/min; Glucose 84 mg/dl (70-99); Magnesium 1.9 mg/dl (1.6-2.3); Potassium 3.6 mmol/L (3.5-5.1); Sodium 135 mmol/L (135-145); Total Protein 5.2 g/dl (6.3-8.2); eGFR 45.35
[2025-04-23 07:47] LABS: Glucose - Point of Care 63 mg/dl (70-99)
[2025-04-23 08:20] LABS: Absolute Neutrophils -Man Diff 5.3 10^3/uL (1.4-6.5); Platelets Checked Yes
[2025-04-23 08:21] LABS: Normal RBC Morphology Yes; Total Cells Counted 100
--- NOTE | 2025-04-23 08:29 | W.PN.HOSP.TC ---
Today's Communication/Plan
-
IMU as with hypotension nurses on the floor uncomfortable for GMF mgmt
cont ABx
BOlus and increase IVF
Urine studies
Bladder scans for retention, if present - Urology for Maravilla since RN was unable to place
Acapella, pulm consult
Sputum Cx
serial BMP
Stress dose steroids
Assessment / Plan
Assessment / Plan
65yo F with PMHx of iatrogenic adrenal insufficiency, chronic pain, vulvar melanoma s/p RT and resection, managed by Dr.Melanie Vasquez in [facility] on Opdualag with most recent injection done few weeks ago came with worsening weakness,
mucoid diarrhea, later switched to watery and lower abdominal pain. CT showed long segment wall thickening and mucosal hyperenhancement involving the mid sigmoid colon to the rectum consistent with proctocolitis. Patient also developed fevers and
hypotension on 04/23/25 with that increased steroids to stress level doses, increased hydration
A/P:
#Proctocolitis with watery diarrhea - overflow diarrhea?
#Moderate/severe constipation
#Ileus, concern for developing SBO
most likely opioid-induced constipation - attempt Relistor
FMT
while no nausea/vomiting - avoid NG tube
C.diff neg
Stool Cx NTD
Multiple WBC in stool
GI consult
Cannot exclude immunotherapy-induced colitis
GI has no concern for ischemic colitis with no significant mesenteric vessel obstruction on CT reading
check lactate
#Fever, possible UTI
2/2 colitis vs other
with immunosuppression
Bcx NTD
XR with RML concern for infection
UA with concern for UTI - Ucx pending
Zosyn
#JACLYN
suspect multiple bowel movements caused dehydration
increase IVF
Urine studies
Follow I&O, bladder scan (Maravilla could not be placed by RN due to inability to pass the catheter, patient with Hx of abdominal Sx)
#Hypotension
probable volume loss
aggressive hydration
Stress dose steroids due to HX of steroid dependency
#DM with hypoglycemia
most likely hypoglycemia 2/2 poor oral intake with abdominal pain
stop insulin
cont Accuchecks
D5 fluids
#Vulvar melanoma with mets to lungs
#Chemotherapy-induced Adrenal insufficiency
S/P RT and surgical resection
discussed with : patient with poor prognosis
hold Nilotinib
Oncology consult
cont hydrocortisone
#HLD
#Chronic pain with opioid dependency
cont home meds
#Malnutrition with cachexia
BMI 18.8
2/2 CA
when appropriate - use Ensure
#Acute hypoxic insufficiency
#Bronchiectasis with RML partial collapse, can be infectious
Abx - on zosyn
Sputum Cx
Pulm consult
acapella
#endometrial thickening measuring approximately 1.2 cm
eventual TV US, most likely outpatient
#Mild compression deformity of the L4 vertebral body
chronic
#Elevated Alk.phos
CT ABD: Bile Ducts: Within normal limits. Gallbladder: Within normal limits. - therefore most likely 2/2 cancer
DVT ppx SCDs (due to dark colored stools)
Full code
I have spent at least 59min critical care time reviewing chart, test results, communication with consultants and providing direct patient care
Anticipated Discharge: > 48 hours
Subjective/Interval History
-
Date of Service: April 23, 2025
Objective Data
-
Labs:
Laboratory Results
04/23/25
06:08
WBC 7.9
Hgb 12.3
Hct 36.9 L
Plt Count 487 H
Sodium 135
Potassium 3.6
Chloride 104
Carbon Dioxide 22
BUN 24 H
Creatinine 1.3 H
Glucose 84
Calcium 8.0 L
Total Bilirubin 1.3
AST 30
ALT 17
Alkaline Phosphatase 235 H
Vital Signs:
Vital Signs
Temp Pulse Resp BP Pulse Ox
99.7 F 125 17 145/86 96
04/22/25 23:00 04/22/25 23:00 04/22/25 23:00 04/22/25 23:00 04/22/25 23:00
I&O
04/22/25 04/23/25 04/24/25
06:59 06:59 06:59
Intake Total 440 / 440
Balance 440 / 440
Review of Systems
-
History Source: Patient
Abdomen/GI: Reports Abdominal Pain and Diarrhea; Denies Nausea or Vomiting
Physical Exam
-
General: Appears in Distress; Negative Fever or Chills
HEENT: Normocephalic
Respiratory: Clear to Auscultation; Negative Wheezes or Crackles
Cardiac: Regular Rhythm and Tachycardic
GI: Soft, Nondistended and Tender
Musculoskeletal: No Clubbing, No Cyanosis and No Edema
Neuro: Awake, Alert, Oriented and AO x 3
Psych: Calm
--- NOTE | 2025-04-23 08:44 | W.PN.ONC2 ---
Today's Communication / Plan
-
critical management per primary service
monitor stool output -hopefully improved on hyrocortisone
agree with IV abx
appreciate GI input
Impression
Impression
vulvar melanoma, KIT-mutated, and metastatic, on nilotinib (oral TKI) and Opdualag (immunotherapy, s/p 3 cycles)
non-bloody diarrhea -proctocolitis -concern for immune meditated colitis
possible ileus on ab xray 04/23
fever
leukocytosis
adrenal insuff from prior immunotherapy, takes hydrocortisone 15mg daily
JACLYN
hypotension
Plan
Plan
transferred to higher level of care for pressor support
started hydrocortisone 200mg x 1 followed by 50mg Q8 which is equivalent to 37.5mg prednisone (approximately 1mg/kg/day prednisone)
follow cultures -on IV abx
hold opdualag (nivolmab/relatlimab), nilotinib
GI to consider flex sig
OP follow up with Dr. Vasquez for next steps in metastatic melanoma management
Subjective/Objective
Subjective
diarrhea/ab cramping persists -Fecal management in place
transfered to IMU this morning for hypotension
Vital Signs:
Vital Signs
Temp Pulse Resp BP Pulse Ox
99.7 F 125 17 145/86 96
04/22/25 23:00 04/22/25 23:00 04/22/25 23:00 04/22/25 23:00 04/22/25 23:00
Lab Results:
Laboratory Data
WBC 7.9 10^3/uL (4.8-10.8) 04/23/25 06:08
Hgb 12.3 g/dL (12.0-16.0) 04/23/25 06:08
Plt Count 487 10^3/uL (130-400) H 04/23/25 06:08
eGFR 45.35 04/23/25 06:08
Physical Exam
HEENT: Moist Mucous Membranes; No Jaundice
Pulmonary: Other (unlabored)
GI: Soft
Extremities: Pulses Present
--- NOTE | 2025-04-23 08:46 | CON.PUL ---
Consultation
Consultation Request
Date/Time Consultation Requested: 04/23/2025-8 AM
Date/Time Consultation Performed: 04/23/2025-8:30 AM
Requesting Provider: Hospitalist
Performing Provider: Dr. Michaels
Reason for Consultation: Shortness of breath
Medical History
-
Chief Complaint: Shortness of breath/bronchiectasis
History of Present Illness:
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
hypotension and potential need for norepinephrine-pulmonary consulted for shortness of breath/bronchiectasis 04/23/2025. Patient states she was diagnosed with bronchiectasis many years ago. She had followed with cardiopulmonary technician but has not seen them
in over 3 years because she has been stable. She is not on any mucus clearing devices at home. She does not have recurrent respiratory tract infections. Major complaint continues to be watery diarrhea. She denies any shortness of breath at rest,
productive cough, chest congestion, pleurisy, and admits to some abdominal pain but no leg swelling or focal weakness.
Past Medical History
Past Medical History: None (Mucosal melanoma with metastatic disease to the lungs/left thoracotomy, resection left upper lobe lung mass 05/2021. Diabetes. Hyperlipidemia. Breast cancer/bilateral mastectomy. GERD.)
Social History
Tobacco: Non-smoker
Alcohol: None
Drug: None
Personal: Single
Occupational Exposures: no known asbestos exposure
Environmental Exposures: No known tuberculosis exposure
Family History
Family History: Reviewed & Not Pertinent
Allergies / Home Medications
Allergies
Allergy/AdvReac Type Severity Reaction Status Date / Time
bacitracin (From Polysporin) Allergy Corneal Verified 06/08/21 06:29
Ulcerations
morphine Allergy Swelling, Verified 06/08/21 06:29
Redness @
IV site
polymyxin B Allergy Corneal Verified 06/08/21 06:29
Ulcerations
Home Medications
�Medication �Instructions �Recorded �Confirmed �Last Taken �Type
hydrocortisone 10 mg tablet 15 mg PO DAILY Anti-Inflammatory 06/04/21 04/21/25 04/21/25 History
lorazepam 0.5 mg tablet 0.5 mg PO HS anxiety 06/04/21 04/21/25 04/20/25 History
pravastatin 20 mg tablet 20 mg PO QPM cholesterol 06/04/21 04/21/25 06/07/21 08:00 History
acetaminophen 500 mg tablet 1,000 mg PO Q6HPRN PRN mild pain 06/08/21 04/21/25 04/21/25 History
(Tylenol Extra Strength)
fentanyl 25 mcg/hr transdermal 1 patch transdermal Q72H Pain 04/21/25 04/21/25 04/21/25 History
patch
hydromorphone 2 mg tablet 4 mg PO Q8HPRN PRN severe pain 04/21/25 04/21/25 Unknown History
methylphenidate HCl 5 mg tablet 5 mg PO BID Neurological Condition 04/21/25 04/21/25 Unknown History
nilotinib HCl 200 mg capsule 200 mg PO BID Cancer-melanoma 04/21/25 04/21/25 04/21/25 History
ondansetron HCl 8 mg tablet 8 mg PO [id number] PRN nausea 04/21/25 04/21/25 Unknown History
repaglinide 0.5 mg tablet 0.5 mg PO AC Diabetes 04/21/25 04/21/25 Unknown History
Review of Systems
-
Unable to Obtain full review of systems at this time due to: Other ( Per HPI)
Vitals / Labs / Diagnostic Testing
Vital Signs
Temp Pulse Resp BP Pulse Ox
99.7 F 125 17 145/86 96
04/22/25 23:00 04/22/25 23:00 04/22/25 23:00 04/22/25 23:00 04/22/25 23:00
Lab Data
04/23/25 06:08
04/23/25 06:08
Microbiology
04/22/25 12:59 Feces/Stool Stool Leukocytes - Final
04/22/25 12:59 Feces/Stool Cryptosporidium/Giardia - Final
Negative for Cryptosporidium and/or Giardia Lamblia
antigens.
04/21/25 17:12 Feces/Stool Salmonella/Shigella Culture - Preliminary
Culture in Progress
04/21/25 17:12 Feces/Stool Campylobacter Culture - Preliminary
Culture in Progress
04/21/25 17:12 Feces/Stool C. difficile GDH Antigen & Toxins - Final
Negative for toxigenic C.difficile
Diagnostic Testing:
Physical Exam
-
Exam:
well-nourished and well-developed in no apparent distress
HEENT-atraumatic, normocephalic
Neck-supple, no JVD, no bruit
Heart-regular rate and rhythm-no murmurs, rubs or gallops
Chest-clear to auscultation, no wheezes, rare crackles at the right greater than left base
Back-no tenderness
Abdomen-soft, tender, nondistended
Extremities-no cyanosis, clubbing, edema and good peripheral pulses
Integument-intact, no rashes, lesions or ecchymosis
Neurology-alert and oriented, nonfocal motor and sensory exam
Assessment
-
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
hypotension and potential need for norepinephrine-pulmonary consulted for shortness of breath/bronchiectasis 04/23/2025.
Proctocolitis/diarrhea/hypotension
Ileus
Bronchiectasis
Adrenal insufficiency from prior immunotherapy-takes hydrocortisone 15 mg daily
JACLYN
Leukocytosis
Conditions present prior to admission:
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
Adrenal insufficiency
Diabetes.
Hyperlipidemia.
Breast cancer/bilateral mastectomy.
GERD.
Plan
Patient has history of chronic bronchiectasis and saw Dr. Cook at [facility] in the past not on specific therapy-'Trelegy and albuterol as needed', not on vest therapy, etc. and was told to follow-up as needed
Respiratory status relatively stable
Radiographs summarized below
Supplemental oxygen as needed
Aspiration precautions
Mucolytic's as needed
Mucus clearing devices as needed
Follow radiographically
GI evaluation
Proctocolitis noted
Intravenous fluid resuscitation-receiving 3 L of hypertonic saline
Norepinephrine as needed
Check cultures
Empiric antibiotics-vancomycin and Zosyn initiated
Follow renal function
Replace electrolytes
Nephrology evaluation if renal function does not improve
Oncology evaluation ongoing-correspondence reviewed
History of adrenal insufficiency-hydrocortisone initiated
DVT prophylaxis-on subcu heparin
Nutrition
Early mobilization
Reviewed with nursing and primary team
Diagnostic data:
Chest x-ray 06/10/2021-small left pneumothorax
Chest x-ray 04/22/2025-large amount of asymmetrical opacification right upper lung field appears new from 2020
CT abdomen and pelvis 04/21/25-bronchiectasis with partial collapse right middle lobe endometrial thickening approximately 1.2 cm, dedicated pelvic ultrasound recommended, mild compression deformity L4, long segment wall thickening and mucosal
hyperenhancement involving the mid sigmoid colon and rectum consistent with proctocolitis
Data Reviewed
-
EKG: Report reviewed by me
Radiology: Image personally visualized and interpreted and Report reviewed by me
CT Scan: Report reviewed by me
Medical Tests (Nuc Med, Echo etc): Report reviewed by me
Labs: Labs reviewed by me
Old Records: Reviewed
Total Time Spent with Patient (in minutes): 65
[2025-04-23] MEDS: NSS 1000 IV ×3 (08:55→13:21)
[2025-04-23] MEDS: SOLU-CORTEF 200 MG IV (09:03)
--- NOTE | 2025-04-23 09:07 | PTCARENOTE ---
assumed care for this pt, during AM VS tech reported BP 74/38. Manualy check reading was 74/38 HR 130's 90% RA. 2L applied, contacted attending, who came at bedside. stat orders. attempted morgan placement, unsuccessful pt reports surgical hx of her
urethra. IVF bolus ordered, discussed if pt does need to be transferred, UM involved. pt transferred to IMU level of care R/T hypoxia, hypotension and increased work of breathing. Pt in agreement with POC. expressed understanding, called report to
IMU.
--- NOTE | 2025-04-23 09:12 | PTCARENOTE ---
Pt from 3 weast AAOX3 hr 15
--- NOTE | 2025-04-23 09:13 | PTCARENOTE ---
Pt AAOx3 with hr 133 bp 121/96 with diarrhea order for FMS Pt pale IV flluids DC . Dr Arciniega saw pt
[2025-04-23] MEDS: SENOKOT-S 1 TABLET PO ×2 (09:42→20:41)
--- NOTE | 2025-04-23 09:53 | PTCARENOTE ---
FMS inserted without incident
--- NOTE | 2025-04-23 10:11 | PTCARENOTE ---
Pt bp now 69/50 feels weak and tired and is pale.DR Arrieta notified
[2025-04-23] MEDS: LEVOPHED 250 IV ×3 (10:16→21:32)
--- NOTE | 2025-04-23 10:20 | PTCARENOTE ---
Norepinephrine statred at 4 for bp 69/50
[2025-04-23] MEDS: TYLENOL 650 MG PO (10:26)
[2025-04-23] MEDS: RELISTOR 8 MG SC (10:28)
[2025-04-23] MEDS: VANCOCIN 200 IV (10:37)
--- NOTE | 2025-04-23 11:36 | W.PN.UPDATE ---
Update Note
Progress Note Update
discussed withgen Madsen in details
switching to merrem with developing shock
Fentanyl removed in order to relieve constipation - discussed with patient and she is agreeable
--- NOTE | 2025-04-23 11:46 | PTCARENOTE ---
Pt map [address]rieta aware , pt to ICU report to Manuel DURAN.
--- NOTE | 2025-04-23 12:17 | PN.CDI ---
CDI
- -
CDI:
Physician Documentation Request
Admit Date: 04/21/25 18:42
Dear Doctor Nya,
04/22 and 04/23 hospitalist progress notes include a diagnosis of Malnutrition
To ensure the quality of the medical record, based on the above information and the recognized standards for malnutrition , could you please verify in your progress notes which of the following responses best reflects the patient's nutritional
status:
(Specify severity) Malnutrition is/was present and is a clinical diagnosis (please provide additional support in the medical record)
No nutritional deficiency
Other (please specify)
[place] Criteria ([facility] Hospitalist 2017)
2 or more criteria must be present for either
non severe or severe malnutrition
Note that the criteria differs related to the
presence of an acute or chronic illness
Acute Illness Chronic Illness
Energy Intake Non Severe: <75% for >7 days Non Severe: <75% for >1 month
Severe: <50% for >5 days Severe: <75% for >1 month
Weight Loss Non Severe: 1-2% over 1 week Non Severe: 5% over 1 month
5% over 1 month 7.5% over 3 months
7.5% over 3 months 10% over 6 months
1 year N/A 20% over 1 year
Severe: >2% over 1 week Severe: >5% over 1 month
>5% over 1 month >7.5% over 3 months
>7.5% over 3 months >10% over 6 months
1 year N/A >20% over 1 year
Body Fat Non Severe: Mild Decrease Non Severe: Mild Loss
Severe: Moderate Decrease Severe: Severe Loss
Muscle Mass Non Severe: Mild Decrease Non Severe: Mild Loss
Severe: Moderate Decrease Severe: Severe Loss
Fluid Accumulation Non Severe: Mild Accumulation Non Severe: Mild Accumulation
Severe: Moderate to severe Severe: Moderate to severe
accumulation accumulation
Reduced Lamps Tester And Inspector Strength Non Severe: N/A Non Severe: N/A
Severe: Measurably reduced Severe: Measurably reduced
Use of terms such as suspected, likely, concern for, or probable (associated with a specific diagnosis that is being evaluated, monitored, or treated as if it exists) are acceptable and can be coded in the inpatient setting, when documented at the
time of discharge.
Thank you,
Gita Alcaraz RN, BSN
CDI Specialist
tiger text
Please use your independent medical judgment in providing your response.
--- NOTE | 2025-04-23 12:20 | PTCARENOTE ---
Pt received into Rm [id number] via bed from IMU at 1140. Pt drowsy but arousable to name. Reports generalized abdominal tenderness w/ palpation- most notably in lower quadrants. Abdomen distended. Bowel sounds normoactive. FMS in place w/ liquid dark
brown BM. Pt denies need to urinate. Ox3. Answers questions appropriately, dozes off when undisturbed. Received w/ Levophed gtt infusing at 10mcg/min with MAP goal >65. Titrating Levophed to achieve ordered parameters. Received on O2 at 2l/min w/
POx 98%. Tachypneic w/ RR mid 30's. Denies feeling SOB. Respirations shallow. Physical assessment completed as documented. Pt and her son updated on plan of care/pt's current condition, all questions answered and emotional support provided.
[2025-04-23] MEDS: PITRESSIN 100 IV ×2 (13:07→20:54)
--- NOTE | 2025-04-23 13:16 | PHA.VAN.IN ---
Assessment
- Assessment
Renal Function: SCR Appears Elevated from baseline (1.3 vs 0.8 on admission)
Concomitant Antimicrobials: meropenem
Plan
- Plan
Initial / Loading Dose: 1000mg - 04/23 10:37
Maintenance Regimen: dosing by level - give 500mg x1 at 1800 to help ensure therapeutic level
Monitoring: random 04/24 0600
Pharmacokinetics Vancomycin I
- -
Patient Age: 65
Patient Sex: Female
Vancomycin Day #: 1
Indication: Genito-Urinary Tract
Requesting Provider: Dr. Fay
Pertinent Antimicrobial Allergies:
bacitracin/polymyxin B - corneal ulcerations
Height / Weight:
Height 4 ft 11 in
Actual Weight 42.32 kg
IBW in k.5
Pertinent Past Medical History: BMI ~18.8, Bronchiectasis
- Vital Signs / Lab Results
Temp Pulse Resp BP Pulse Ox
99.6 F 111 38 61/44 97
04/23/25 11:14 04/23/25 11:45 04/23/25 11:45 04/23/25 11:45 04/23/25 11:45
Lab Results - Hematology
04/21/25 04/22/25 04/23/25
13:48 07:21 06:08
WBC 16.7 H 13.9 H 7.9
Band Neutrophils 49 H
Lab Results - Chemistry
04/21/25 04/22/25 04/23/25
13:48 07:21 06:08
BUN 22 H 18 H 24 H
Creatinine 0.8 0.8 1.3 H
Estimated Creat Clear 47 46 28
Albumin 3.8 2.8 L
04/23/25 04/23/25
10:52 11:25
Lactic Acid 4.4 H* Cancelled
Lab Results - Urine
04/22/25
13:00
Urine Nitrite (Reflex) Negative
Leukocyte Esterase Rfl 2+ A
Urine WBC (Reflex) 6-10
Ur Squamous Epith Cells 16-20
Urine Bacteria (Reflex) Moderate A
Microbiology Results
04/21/25 17:12 Salmonella/Shigella Culture - Preliminary
Feces/Stool Culture in Progress
Campylobacter Culture - Final
No Campylobacter species isolated.
04/22/25 13:00 Urine Culture - Preliminary
Urine Enterococcus species
04/22/25 11:24 Blood Culture - Preliminary
Blood/Venous No Growth in 24 hours- Final report to follow
04/22/25 10:53 Blood Culture - Preliminary
Blood/Venous No Growth in 24 hours- Final report to follow
04/22/25 12:59 Stool Leukocytes - Final
Feces/Stool
04/22/25 12:59 Cryptosporidium/Giardia - Final
Feces/Stool Negative for Cryptosporidium and/or Giardia Lamblia
antigens.
04/21/25 17:12 C. difficile GDH Antigen & Toxins - Final
Feces/Stool Negative for toxigenic C.difficile
--- NOTE | 2025-04-23 13:20 | PTCARENOTE ---
Dr Gong aware of CMP results- to redraw lab
[2025-04-23 13:28] LABS: Hematocrit 29.7 % (37.0-47.0); Hemoglobin 9.8 g/dL (12.0-16.0); INR 1.32; Mean Corp Hgb Conc. 33.0 g/dL (33.0-37.0); Mean Corpuscular Volume 92.8 fL (81.0-99.0); Nucleated Red Blood Cells % 0 %; PT 16.9 Sec (11.4-14.6); Platelet Count 414 10^3/uL (130-400); Red Cell Dist. Width 13.7 % (11.5-14.5)
[2025-04-23 13:29] LABS: APTT 42.0 Sec (23.4-35.0)
[2025-04-23 13:43] LABS: ALT (SGPT) 13 U/L (0-35); AST (SGOT) 30 U/L (14-36); Albumin 1.9 g/dl (3.5-5.0); Alkaline Phosphatase 154 U/L (38-126); Blood Urea Nitrogen 22 mg/dl (7-17); Calcium 5.9 mg/dl (8.4-10.2); Carbon Dioxide 19 mmol/L (22-30); Chloride 95 mmol/L (98-107); Estimated Creatinine Clearance 31 ml/min; Glucose 597 mg/dl (70-99); Magnesium 1.5 mg/dl (1.6-2.3); Potassium 3.2 mmol/L (3.5-5.1); Sodium 119 mmol/L (135-145); Total Protein 3.8 g/dl (6.3-8.2); eGFR 49.92
--- NOTE | 2025-04-23 14:15 | W.PN.UPDATE ---
Update Note
Progress Note Update
65-year-old woman with past medical history significant for mucosal melanoma with metastatic disease to the lung status post left thoracotomy, initially seen by pulmonary on the floors. At that time we were consulted for bronchiectasis.
He was noted the patient was febrile, hypotensive. Transferred to the critical care unit on 04/23/2025 ecclesiastical worker for vasopressor support.
CT abdomen pelvis demonstrated colitis, patient complains of abdominal pain.
Urinalysis demonstrated Enterococcus
There is no concern for ongoing pulmonary infection based on imaging and symptoms.
Patient is cachectic and debilitated.
-
Differential diagnosis for her infection includes stercoral colitis, infectious colitis versus colitis from her cancer immunotherapy.
-
Patient is critically ill
I evaluated her at the bedside multiple times.
Discussed with her son at the bedside.
Situation is a very high risk
Patient in septic shock
Has acute kidney injury with increased lactic acid.
-
Agree with the stress dose of steroids hydrocortisone IV every 8 hours. Did receive 200 mg loading dose 04/23/2025.
Usually on low-dose hydrocortisone 50 mg in the outpatient for history of adrenal insufficiency.
-
Received adequate fluid resuscitation
Continue Levophed to target mean arterial blood pressure 65 mmHg.
Vasopressin will be added
PICC line will be obtained
Obtain laboratory testing will replace electrolytes as necessary
Broad-spectrum antibiotics for now
Follow final cultures
-
GI has been consulted given colitis-patient has significant amount of his stools on CAT scan
Abdomen is soft and mildly tender.
Will defer bowel regimen to GI
Continue PPI IV
Relistor was ordered as the patient uses a fentanyl patch. This has been removed
-
Currently on clear liquid diet-May need to be n.p.o. for now.
Aspiration precaution
Head of the bed elevation
-
I did discuss with the patient goals of care. She is okay with intubation if necessary.
-
High risk situation
Case discussed with primary team and pulmonary as well.
-
-
Critical care statement: A total of 45 minutes of critical care time was provided for this patient today. This includes management of unstable vital signs, evaluation of the patient at bedside, reviewing the patient's pertinent medical records
including ventilator settings, arterial blood gases, radiographs, microbiology, laboratory evaluations and discussion with primary team, critical care nursing, and respiratory therapy.
[2025-04-23 14:24] LABS: ALT (SGPT) 16 U/L (0-35); AST (SGOT) 33 U/L (14-36); Albumin 2.4 g/dl (3.5-5.0); Alkaline Phosphatase 178 U/L (38-126); Blood Urea Nitrogen 25 mg/dl (7-17); Calcium 7.0 mg/dl (8.4-10.2); Carbon Dioxide 21 mmol/L (22-30); Chloride 106 mmol/L (98-107); Estimated Creatinine Clearance 28 ml/min; Glucose 93 mg/dl (70-99); Potassium 3.5 mmol/L (3.5-5.1); Sodium 134 mmol/L (135-145); Total Protein 4.6 g/dl (6.3-8.2); eGFR 45.35
[2025-04-23] MEDS: PROTONIX IV 40 MG IV (14:39)
[2025-04-23] MEDS: MERREM 500 MG IV ×2 (14:39→23:18)
[2025-04-23] MEDS: STERILE WATER FOR INJECTION 10 ML IV ×2 (14:40→23:18)
[2025-04-23] MEDS: D5LR 1000 IV ×2 (14:40→20:40)
--- NOTE | 2025-04-23 14:51 | VATNOTE ---
Per radiology report, PICC tip in good position in the CAJ. PCN notified OK to use at this time, instructed to change all IV tubing and remove all ipsilateral IVs.
--- NOTE | 2025-04-23 15:00 | PTCARENOTE ---
Vasopressin started at 1300 per MD order. PICC placed at bedside by VAT. Pt tolerated well. Once confirmed placement, all IV tubing changed and IVF through PICC. Lt lower arm peripheral IV sites removed. Pt's son and pt's friend visiting at bedside.
Pt NPO at present for ordered abd. US. Call chapman remains in reach and safe environment maintained.
[2025-04-23] MEDS: CORTEF PO (15:08)
[2025-04-23] MEDS: RITALIN PO (15:08)
[2025-04-23] MEDS: HEPARIN SC ×2 (15:08→15:15)
--- NOTE | 2025-04-23 16:00 | PTCARENOTE ---
Pt napping when undisturbed. Family gone home for the evening. No new complaints or changes from previous assessment findings.
[2025-04-23 16:29] LABS: Magnesium 1.8 mg/dl (1.6-2.3)
[2025-04-23] MEDS: CALCIUM GLUCONATE 100 IV (16:50)
--- NOTE | 2025-04-23 16:52 | W.PN.GI.CBS2 ---
Today's Communication / Plan
-
-Leukocytosis, fever and hypotension suggesting septic shock
Currently on pressors and still hypotensive in the IMU
Blood cultures negative so far, urine culture showing Enterococcus species
Currently on meropenem, vancomycin IV and getting stress dose steroids as well.
Critically ill patient, family aware
-Left-sided colitis noted on CT scan, no C. difficile, Campylobacter, Cryptosporidium and Giardia, other cultures pending
Stool white cells positive
Also noted an abdominal x-ray with findings suggesting developing ileus and moderate to severe constipation with diffuse colonic stool burden
She did receive 1 tablet of Senokot and currently has a fecal management system
Will monitor bowel movements. Off fentanyl and other narcotics.
She is already on antibiotics for left-sided colitis and hopefully stress dose steroids will help with any possible immune-mediated colitis symptoms
Monitor electrolytes closely and replete
Will follow
Assessment / Plan
-
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 In the
emergency department she presented with tender and mildly distended abdomen, WBC 16.7, plt 488, AST/ALT 36/27, Alk Phos 363, T Bili 1.1. CT imaging showed long segment wall thickening and mucosal hyperenhancement involving the mid sigmoid colon to
the rectum consistent with proctocolitis. DDx includes infectious colitis, inflammatory colitis, or immune mediated colitis in the setting of immunotherapy with Opdualag. Ischemic colitis was considered, but CT scan without evidence of arterial
narrowing.
#Proctocolitis
#Nonbloody Mucoid Diarrhea
#Leukocytosis and Fever
#Current Immunotherapy Use
-Leukocytosis, fever and hypotension suggesting septic shock
Currently on pressors and still hypotensive in the IMU
Blood cultures negative so far, urine culture showing Enterococcus species
Currently on meropenem, vancomycin IV and getting stress dose steroids as well.
Critically ill patient, family aware
-Left-sided colitis noted on CT scan, no C. difficile, Campylobacter, Cryptosporidium and Giardia, other cultures pending
Stool white cells positive
Also noted an abdominal x-ray with findings suggesting developing ileus and moderate to severe constipation with diffuse colonic stool burden
She did receive 1 tablet of Senokot and currently has a fecal management system
Will monitor bowel movements. Off fentanyl and other narcotics.
She is already on antibiotics for left-sided colitis and hopefully stress dose steroids will help with any possible immune-mediated colitis symptoms
Monitor electrolytes closely and replete
Will follow
Subjective
Subjective
Date of Service: April 23, 2025
Patient transferred to IMU for hypotensive episode, currently on pressors and continues to be hypotensive. Fever of 102.5 last night, she did have loose stool overnight and 1 large loose stool this morning
Objective
Data Reviewed
Laboratory Data:
Laboratory Results
04/23/25 13:03
Laboratory Results
PT 16.9 Sec (11.4-14.6) H 04/23/25 13:03
INR 1.32 04/23/25 13:03
APTT 42.0 Sec (23.4-35.0) H 04/23/25 13:03
Phosphorus 3.5 mg/dl (2.5-4.5) 04/23/25 06:08
Magnesium 1.8 mg/dl (1.6-2.3) 04/23/25 13:53
Total Bilirubin 1.3 mg/dl (0.2-1.3) 04/23/25 13:53
AST 33 U/L (14-36) 04/23/25 13:53
ALT 16 U/L (0-35) 04/23/25 13:53
Alkaline Phosphatase 178 U/L (38-126) H 04/23/25 13:53
Vital Signs and I&O:
Vital Signs
Temp Pulse Resp BP Pulse Ox
98.3 F 111 38 61/44 97
04/23/25 15:38 04/23/25 11:45 04/23/25 11:45 04/23/25 11:45 04/23/25 11:45
I&O
04/22/25 04/23/25 04/24/25
06:59 06:59 06:59
Intake Total 440 / 440 1250 / 1250
Balance 440 / 440 1250 / 1250
Physical Exam
Physical Exam
GI: Soft, Distended (Mild distention noted) and Tender (Mild discomfort on palpation in the right side of the abdomen and lower abdomen)
[2025-04-23] MEDS: SOLU-CORTEF 50 MG IV ×2 (16:55→23:18)
[2025-04-23] MEDS: PRAVACHOL 20 MG PO (18:34)
[2025-04-23] MEDS: VANCOCIN HCL 500 MG 100 IV (18:34)
[2025-04-23 19:12] LABS: Blood Urea Nitrogen 24 mg/dl (7-17); Calcium 7.9 mg/dl (8.4-10.2); Carbon Dioxide 20 mmol/L (22-30); Chloride 103 mmol/L (98-107); Estimated Creatinine Clearance 34 ml/min; Glucose 323 mg/dl (70-99); Potassium 3.7 mmol/L (3.5-5.1); Sodium 130 mmol/L (135-145); eGFR 55.42
--- NOTE | 2025-04-23 20:30 | PTCARENOTE ---
furnace fitter, lethargic, arouses to verbal, oriented x 3, SR HR 70s-80s. LUE PICC WNL- levo, vaso, IVF infusing per worklist. FMS draining liquid brown, flushed. purewick in place, pt inc devendra urine, skin care, CHG cloths, mouth care. POC
discussed, call chapman with pt.
[2025-04-23] MEDS: ATIVAN 0.5 MG PO (23:17)
[2025-04-24] VITALS (70 sets, daily range): BP systolic 82–130; BP diastolic 50–97; BMI 20.6
--- NOTE | 2025-04-24 | PTCARENOTE ---
no changes in pt assessment. skin care, assisted with repositioning. call chapman with pt.
--- NOTE | 2025-04-24 04:00 | PTCARENOTE ---
continuing to wean off pressors, no changes in assessment.
[2025-04-24 04:31] LABS: Hematocrit 28.4 % (37.0-47.0); Hemoglobin 9.6 g/dL (12.0-16.0); Mean Corp Hgb Conc. 33.8 g/dL (33.0-37.0); Mean Corpuscular Volume 91.0 fL (81.0-99.0); Platelet Count 390 10^3/uL (130-400); Red Cell Dist. Width 13.5 % (11.5-14.5)
[2025-04-24 04:47] LABS: ALT (SGPT) 17 U/L (0-35); AST (SGOT) 32 U/L (14-36); Albumin 2.4 g/dl (3.5-5.0); Alkaline Phosphatase 139 U/L (38-126); Blood Urea Nitrogen 22 mg/dl (7-17); Calcium 8.2 mg/dl (8.4-10.2); Carbon Dioxide 21 mmol/L (22-30); Chloride 103 mmol/L (98-107); Estimated Creatinine Clearance 42 ml/min; Glucose 331 mg/dl (70-99); Potassium 3.7 mmol/L (3.5-5.1); Sodium 130 mmol/L (135-145); Total Protein 4.6 g/dl (6.3-8.2); eGFR > 60.00
[2025-04-24 05:07] LABS: Absolute Neutrophils -Man Diff 15.8 10^3/uL (1.4-6.5); Anisocytosis 1+; Macrocytosis 1+; Normal RBC Morphology No; Platelets Checked Yes
[2025-04-24 05:08] LABS: Pelger-Huet Occasional; Total Cells Counted 100
[2025-04-24] MEDS: D5LR IV (05:12)
[2025-04-24] MEDS: NSS 1000 IV ×3 (05:20→21:15)
[2025-04-24] MEDS: MERREM 500 MG IV ×3 (05:20→21:13)
[2025-04-24] MEDS: STERILE WATER FOR INJECTION 10 ML IV ×3 (05:20→21:15)
[2025-04-24 07:24] LABS: Glucose - Point of Care 258 mg/dl (70-99)
--- NOTE | 2025-04-24 07:51 | W.PN.HOSP.TC ---
Today's Communication/Plan
-
bandemia improving - cont Vanco/Merrem
Wean off pressors
cont IVF decrease rate to 100ml/h
Restart insulin SS, watch blood glucose
Repeat abd XR, if still significant stool - repeat Relistor
Assessment / Plan
Assessment / Plan
65yo F with PMHx of iatrogenic adrenal insufficiency, chronic pain, vulvar melanoma s/p RT and resection, managed by Dr.Melanie Vasquez in [facility] on Opdualag with most recent injection done few weeks ago came with worsening weakness,
mucoid diarrhea, later switched to watery and lower abdominal pain. CT showed long segment wall thickening and mucosal hyperenhancement involving the mid sigmoid colon to the rectum consistent with proctocolitis. Patient also developed fevers and
hypotension on 04/23/25 with that increased steroids to stress level doses, increased hydration
A/P:
#Proctocolitis with watery diarrhea - overflow diarrhea?
#Moderate/severe constipation
#Ileus, concern for developing SBO
most likely opioid-induced constipation - attempt Relistor
FMS: brown liquid stool
while no nausea/vomiting - avoid NG tube
C.diff neg
Stool Cx NTD
Multiple WBC in stool
GI consult
Cannot exclude immunotherapy-induced colitis
GI has no concern for ischemic colitis with no significant mesenteric vessel obstruction on CT reading
#Fever, possible UTI
#Septic shock with bandemia
Pressor support, wean as tolerated
2/2 colitis vs other
with immunosuppression
Bcx NTD, repeated also pending
XR with RML concern for infection
Ucx - Enterococcus
Started Vanco/Merrem on 04/23/25
#JACLYN
suspect multiple bowel movements caused dehydration
resolving on IVF
Urine studies
Follow I&O, bladder scan (Maravilla could not be placed by RN due to inability to pass the catheter, patient with Hx of abdominal Sx)
#DM with hypoglycemia (2/2 poor oral intake on admission) and hyperglycemia 2/2 steroids
most likely hypoglycemia 2/2 poor oral intake with abdominal pain
cont Accuchecks, insulin SS, DM diet when able to eat
Hold oral hypoglycemics
#Vulvar melanoma with mets to lungs
#Chemotherapy-induced Adrenal insufficiency
S/P RT and surgical resection
discussed with : patient with poor prognosis
Oncology consult: hold Nilotinib, cont hydrocortisone
#HLD
#Chronic pain with opioid dependency
cont home meds
#Anemia, unspecified
2/2 CA and acute disease
watch for GI bleed - colitis will cause FOBT pos stool, so no clinical value in check, however colors are brown in FMS
Exacerbated by aggressive hydration
restart hep ppx closely watching hgb
#Malnutrition with cachexia
BMI 18.8
2/2 CA
when appropriate - use Ensure
#Acute hypoxic insufficiency
#Bronchiectasis with RML partial collapse, can be infectious
Sputum Cx
Pulm consult: stable bronchiectasis, known, use mucus clearing devices as needed
acapella
#endometrial thickening measuring approximately 1.2 cm
eventual TV US, most likely outpatient
#Mild compression deformity of the L4 vertebral body
chronic
#Elevated Alk.phos
CT ABD: Bile Ducts: Within normal limits. Gallbladder: Within normal limits. - therefore most likely 2/2 cancer
DVT ppx hep
Full code
I have spent at least 51min critical care time reviewing chart, test results, communication with consultants and providing direct patient care
Anticipated Discharge: > 48 hours
Subjective/Interval History
-
Date of Service: April 24, 2025
Objective Data
-
Labs:
Laboratory Results
04/24/25
03:57
WBC 18.2 H
Hgb 9.6 L
Hct 28.4 L
Plt Count 390
Sodium 130 L
Potassium 3.7
Chloride 103
Carbon Dioxide 21 L
BUN 22 H
Creatinine 0.9
Glucose 331 H
Calcium 8.2 L
Total Bilirubin 1.0
AST 32
ALT 17
Alkaline Phosphatase 139 H
Vital Signs:
Vital Signs
Temp Pulse Resp BP Pulse Ox
97.7 F 85 27 97/66 95
04/24/25 07:11 04/24/25 06:30 04/24/25 06:30 04/24/25 06:30 04/24/25 06:30
I&O
04/23/25 04/24/25 04/25/25
06:59 06:59 06:59
Intake Total 440 / 440 4873.0 / 4873.0
Balance 440 / 440 4873.0 / 4873.0
[2025-04-24] MEDS: HEPARIN 5000 UNITS SC ×3 (07:53→23:09)
[2025-04-24] MEDS: SOLU-CORTEF 50 MG IV ×3 (07:54→23:07)
[2025-04-24] MEDS: PROTONIX IV 40 MG IV (07:56)
[2025-04-24] MEDS: SENOKOT-S 1 TABLET PO ×2 (07:57→21:15)
--- NOTE | 2025-04-24 08:15 | PTCARENOTE ---
Assumed care of pt at 0715 following shift report. Pt awake and resting quietly in bed. Denies c/o pain or discomfort. Remains on RA w/ Pox 92-94%. No SOB. No cough. Received w/ IVF infusing and Levophed gtt on hold- resumed due to ordered MAP
parameters (see work list intervention). FMS patent and draining brown liquid stool- no leakage noted. Irrigated w/ 60ml tap water. Pure wick in place- small amount of devendra urine in collection canister. Pt states 'I usually don't pee much in the
morning'. Physical assessment completed. Comfort care provided. Pt repositioning self independently in bed. Call chapman w/in reach and safe environment maintained.
[2025-04-24] MEDS: NOVOLOG FLEXPEN-LOW RESISTANCE 3 UNITS SC (08:17)
--- NOTE | 2025-04-24 09:21 | PHA.VAN.FU ---
Vancomycin Assessment / Plan
- Assessment
Renal Function: SCR Decreasing
WBC's are: Trending Up
In the past 24 hrs, patient has been: Afebrile
Concomitant Antimicrobials: meropenem
- Assessment - Therapeutic Drug Monitoring
Random Level: 11.7 - drawn ~9.5H after previous dose of 500mg (total of 1500mg 04/23)
- Dosing Plan
Dosing by Level: Re-dose today (Vanc 750mg)
- Monitoring Plan
Random Level: 04/25 600
- Follow Up
Pharmacy will continue to follow.
Vancomycin Follow UP
- -
Patient Age: 65
Patient Sex: Female
Vancomycin Day #: 2
Indication: Genito-Urinary Tract
Requesting Provider: Dr. Fay
Pertinent Antimicrobial Allergies:
bacitracin/polymyxin B - corneal ulcerations
Height / Weight:
Height 4 ft 11 in
Actual Weight 46.3 kg
IBW in k.5
Pertinent Past Medical History: BMI ~18.8, Bronchiectasis
- Vital Signs / Lab Results
Temp Pulse Resp BP Pulse Ox
97.7 F 86 27 88/62 93
04/24/25 07:11 04/24/25 09:00 04/24/25 09:00 04/24/25 09:00 04/24/25 09:00
Lab Results - Hematology
04/21/25 04/22/25 04/23/25
13:48 07:21 06:08
WBC 16.7 H 13.9 H 7.9
Band Neutrophils 49 H
04/23/25 04/24/25
13:03 03:57
WBC 17.1 H 18.2 H
Band Neutrophils 21 H D
Lab Results - Chemistry
04/21/25 04/22/25 04/23/25
13:48 07:21 06:08
BUN 22 H 18 H 24 H
Creatinine 0.8 0.8 1.3 H
Estimated Creat Clear 47 46 28
Albumin 3.8 2.8 L
04/23/25 04/23/25 04/23/25
13:03 13:53 18:27
BUN 22 H 25 H 24 H
Creatinine 1.2 H 1.3 H 1.1 H
Estimated Creat Clear 31 28 34
Albumin 1.9 L 2.4 L
04/24/25
03:57
BUN 22 H
Creatinine 0.9
Estimated Creat Clear 42
Albumin 2.4 L
04/23/25 04/23/25 04/23/25
10:52 11:25 15:19
Lactic Acid 4.4 H* Cancelled 1.6
04/23/25
23:25
Lactic Acid Cancelled
Microbiology Results
04/21/25 17:12 Salmonella/Shigella Culture - Preliminary
Feces/Stool Culture in Progress
Campylobacter Culture - Final
No Campylobacter species isolated.
Shiga Toxin Test - Final
No E. coli Shiga Toxin 1 or 2 detected.
04/22/25 13:00 Urine Culture - Preliminary
Urine Enterococcus species
04/22/25 11:24 Blood Culture - Preliminary
Blood/Venous No Growth in 24 hours- Final report to follow
04/22/25 10:53 Blood Culture - Preliminary
Blood/Venous No Growth in 24 hours- Final report to follow
04/22/25 12:59 Stool Leukocytes - Final
Feces/Stool
04/22/25 12:59 Cryptosporidium/Giardia - Final
Feces/Stool Negative for Cryptosporidium and/or Giardia Lamblia
antigens.
Therapeutic Drug Monitoring
Random Vancomycin 11.7 ug/ml 04/24/25 03:57
--- NOTE | 2025-04-24 09:47 | W.PN.ONC2 ---
Today's Communication / Plan
-
.
Impression
Impression
vulvar melanoma, KIT-mutated, and metastatic, on nilotinib (oral TKI) and Opdualag (immunotherapy, s/p 3 cycles)
non-bloody diarrhea -proctocolitis -concern for immune meditated colitis
possible ileus on ab xray 04/23
fever
leukocytosis shock +/- steroids
adrenal insuff from prior immunotherapy, takes hydrocortisone 15mg daily
JACLYN
hypotension
Plan
Plan
on hydrocortisone 50mg Q8 which is equivalent to 37.5mg prednisone (approximately 1mg/kg/day prednisone)
follow cultures -on IV abx
hold opdualag (nivolmab/relatlimab), nilotinib
GI to consider flex sig
OP follow up with Dr. Vasquez for next steps in metastatic melanoma management
Subjective/Objective
Subjective
off pressors
ab cramping when eating or drinking persists
Fecal management system with brown stool
Vital Signs:
Vital Signs
Temp Pulse Resp BP Pulse Ox
97.7 F 86 27 88/62 93
04/24/25 07:11 04/24/25 09:00 04/24/25 09:00 04/24/25 09:00 04/24/25 09:00
Lab Results:
Laboratory Data
WBC 18.2 10^3/uL (4.8-10.8) H 04/24/25 03:57
Hgb 9.6 g/dL (12.0-16.0) L 04/24/25 03:57
Plt Count 390 10^3/uL (130-400) 04/24/25 03:57
PT 16.9 Sec (11.4-14.6) H 04/23/25 13:03
INR 1.32 04/23/25 13:03
APTT 42.0 Sec (23.4-35.0) H 04/23/25 13:03
eGFR > 60.00 04/24/25 03:57
Physical Exam
pale
HEENT: Moist Mucous Membranes; No Jaundice
Pulmonary: Other (unlabored)
GI: Soft and Other (TTP)
Extremities: Pulses Present; No Edema
Neuro: Non Focal
--- NOTE | 2025-04-24 10:20 | W.PN.INTV ---
Today's Communication / Plan
Recommendations
Continue antibiotic therapy without change
Discontinue D5/LR-transition to normal saline gentle hydration
Follow-up final cultures
Bowel regimen started
Clear liquids
Aspiration precautions
Continue to monitor hemodynamics-vasopressor have been discontinued
Avoid narcotics continue to hold immunotherapy
If patient remains off vasopressors will transfer back to intermediate care unit. Transfer out of the ICU critical care team will sign off.
Assessment
-
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
hypotension and potential need for norepinephrine-pulmonary consulted for shortness of breath/bronchiectasis 04/23/2025.
Transferred to the critical care unit 04/23/2025 after developing shock.
Septic shock
Proctocolitis/diarrhea/hypotension
Possible UTI: Enterococcus in the urine
Immunosuppression: On immunotherapy for melanoma Opdualag
Ileus
Adrenal insufficiency from prior immunotherapy-takes hydrocortisone 15 mg daily
JACLYN
Leukocytosis
Bronchiectasis
Conditions present prior to admission:
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
Adrenal insufficiency
Diabetes.
Hyperlipidemia.
Breast cancer/bilateral mastectomy.
GERD.
Plan:
Critically ill:
Developed septic shock 04/23/2025 with acute kidney injury requiring vasopressors.
Patient underwent IV fluid resuscitation
Vasopressors discontinued this morning,
Lactic acid has cleared
Renal function improved
Fever curve improved
Leukocytosis persistent
-
Source of infection likely [id number] colitis: Possibly infectious/stercoral versus immunotherapy related
GI following. Narcotics have been discontinued-patient was on chronic fentanyl patch
Continue current antibiotics without change.
Case discussed
Patient has significant stool burden
Bowel regimen will be started
Patient continues to have liquid diarrhea-? Overflow
Cultures negative but white blood cell count is elevated on stool
-
Enterococcus in the urine: Final identification pending
UA not highly suggestive of UTI but patient is immunosuppressed. Covered with antibiotics for now.
-
IV corticosteroids stress doses started as the patient has chronic adrenal insufficiency
Continue current dose for now without change
If remains hemodynamically stable can consider decreasing in the next 24 to 48 hours.
-
There is no evidence for pulmonary source of infection.
Currently on room air
Patient has history of chronic bronchiectasis and saw Dr. Cook at [facility] in the past not on specific therapy-'Trelegy and albuterol as needed', not on vest therapy, etc. and was told to follow-up as needed
Respiratory status relatively stable
Radiographs summarized below
Supplemental oxygen as needed
Aspiration precautions
Mucolytic's as needed
Mucus clearing devices as needed
-
Acute kidney injury: Likely prerenal. Improved after fluid resuscitation and vasopressor support.
Maravilla urinary output
Continue gentle IV fluids as the patient is mostly n.p.o.
Intolerant to oral diet
-
Oncology evaluation ongoing-correspondence reviewed
History of adrenal insufficiency-hydrocortisone initiated
Holding immunotherapy for now
Follow hemoglobin and leukocytosis
Daily CBC
DVT prophylaxis-on subcu heparin
Nutrition-currently on a clear liquid diet.
Bowel regimen started
Early mobilization-physical therapy/Occupational Therapy, out of bed as able.
Hyperglycemia: Suspect due to steroids and also D5/LR drip.
D5 LR drip discontinued this morning
Insulin sliding scale will continue
If blood sugar persistently over 200 despite discontinuation of glucose drip then insulin drip will be needed.
Dr. Gong reviewed case with primary team, oncology and nursing. 04/24/2025.
Dr. Gong updated son at the bedside 04/23/2025
Diagnostic data:
Chest x-ray 06/10/2021-small left pneumothorax
Chest x-ray 04/22/2025-large amount of asymmetrical opacification right upper lung field appears new from 2020
CT abdomen and pelvis 04/21/25-bronchiectasis with partial collapse right middle lobe endometrial thickening approximately 1.2 cm, dedicated pelvic ultrasound recommended, mild compression deformity L4, long segment wall thickening and mucosal
hyperenhancement involving the mid sigmoid colon and rectum consistent with proctocolitis
-
Critical care statement: A total of 45 minutes of critical care time was provided for this patient today. This includes management of unstable vital signs, evaluation of the patient at bedside, reviewing the patient's pertinent medical records
including ventilator settings, arterial blood gases, radiographs, microbiology, laboratory evaluations and discussion with primary team, critical care nursing, and respiratory therapy.
Subjective Dataa
Subjective Data
Date of Service:
Date of Service: April 24, 2025
Chief Complaint: President Follow Up (Septic shock//colitis)
Subjective:
Abdominal pain and distention improved
Continues to be intolerant to food, decreased appetite.
Fever curve improved
Denies any cough or phlegm production
Continues to have liquid stools, nonbloody
Review of Systems
General: Fever (n)
Cardiopulmonary: Dyspnea (n)
GI: Abdominal Pain, Nausea and Diarrhea
Neuro: Headache (n)
Objective Data
Data Reviewed
Vital Signs / I&O / Oxygen:
Vital Signs
Temp Pulse Resp BP Pulse Ox
97.7 F 86 27 88/62 93
04/24/25 07:11 04/24/25 09:00 04/24/25 09:00 04/24/25 09:00 04/24/25 09:00
Intake and Output
04/23/25 04/24/25 04/25/25
06:59 06:59 06:59
Intake Total 440 / 440 4873.0 / 4980.5 367.5 / 367.5
Balance 440 / 440 4873.0 / 4980.5 367.5 / 367.5
SaO2 93
Nasal Cannula flow liters per 2
minute
Physical Exam
General: Comfortable
HEENT: Normocephalic
Cardiovascular: S1-S2
Respiratory: Clear and Non-Labored Respirations
GI: Soft, Tender and Other (Decreased bowel sounds)
Neurology: Awake and Alert
Skin: Warm
Labs/Micro/Reports
Lab Data
04/24/25 03:57
04/24/25 03:57
Laboratory Results
04/23/25
13:03
PT 16.9 H
INR 1.32
APTT 42.0 H
Microbiology
04/21/25 17:12 Feces/Stool Salmonella/Shigella Culture - Preliminary
Culture in Progress
04/21/25 17:12 Feces/Stool Campylobacter Culture - Final
No Campylobacter species isolated.
04/21/25 17:12 Feces/Stool Shiga Toxin Test - Final
No E. coli Shiga Toxin 1 or 2 detected.
04/22/25 13:00 Urine Urine Culture - Preliminary
Enterococcus species
04/22/25 11:24 Blood/Venous Blood Culture - Preliminary
No Growth in 24 hours- Final report to follow
04/22/25 10:53 Blood/Venous Blood Culture - Preliminary
No Growth in 24 hours- Final report to follow
04/22/25 12:59 Feces/Stool Stool Leukocytes - Final
04/22/25 12:59 Feces/Stool Cryptosporidium/Giardia - Final
Negative for Cryptosporidium and/or Giardia Lamblia
antigens.
04/21/25 17:12 Feces/Stool C. difficile GDH Antigen & Toxins - Final
Negative for toxigenic C.difficile
[2025-04-24] MEDS: CITROMA 300 ML PO (10:25)
--- NOTE | 2025-04-24 10:43 | PTCARENOTE ---
Pt OOB w/ assistance 2 staff. Gait steady but weak. Pt reports 'a little lightheaded' but denies feeling dizzy- tolerated increased activity w/o complication. Pt assisted in ordering full liquid breakfast although states 'I'm not really hungry'.
Importance of nutrition reinforced w/ pt. Call chapman remains w/in pt reach. Safe environment maintained. Levophed conts at 2mcg/min. Pt instructed in slowly sipping provided Mag Citrate as ordered by Dr Francisco. Pt verbalized understanding.
Reinforced use/importance of IS- pt pulling 750ml.
[2025-04-24 11:05] LABS: Glucose - Point of Care 118 mg/dl (70-99)
[2025-04-24] MEDS: VANCOCIN 150 IV (13:15)
--- NOTE | 2025-04-24 14:11 | CM ---
Initial assessment completed with patient who lives alone in a 3 story split level home with B/B on upper level and 1/2 bath on lower level, 1 step down and then 5 up to enter the home. 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
drive. In the home she has a RW, SPC, W/CH, tub seat and grab bars in . The equipment was from her 's needs. No in-home services. Does have a HC-POA. No service. . CHIEF CONSTRUCTION INSPECTOR is Marilin Esipnosa and Pharmacy is [facility] on [address] in
[place]. Discharge POC: TBD with medical progression.
--- NOTE | 2025-04-24 14:13 | W.PN.GI.CBS2 ---
Today's Communication / Plan
-
-Leukocytosis, fever and hypotension suggesting septic shock
Currently off pressors and monitored in the ICU
Blood cultures negative so far, urine culture showing Enterococcus species.
on antibiotics-meropenem, vancomycin IV , fevers resolved
On stress dose steroids as well.
-Left-sided colitis noted on CT scan, no C. difficile, Campylobacter, Cryptosporidium and Giardia, cultures negative
Stool white cells positive
Also noted an abdominal x-ray with findings suggesting developing ileus and moderate to severe constipation with diffuse colonic stool burden
Off fentanyl and other narcotics.
Patient on clear liquid diet without any nausea or vomiting. Okay to give sips of full liquids and also sips of magnesium citrate to see if it helps clear out the colon.
Repeat abdominal x-ray tomorrow.
She is already on antibiotics for left-sided colitis and hopefully stress dose steroids will help with any possible immune-mediated colitis symptoms
Monitor electrolytes closely and replete
Will follow
Assessment / Plan
-
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 In the
emergency department she presented with tender and mildly distended abdomen, WBC 16.7, plt 488, AST/ALT 36/27, Alk Phos 363, T Bili 1.1. CT imaging showed long segment wall thickening and mucosal hyperenhancement involving the mid sigmoid colon to
the rectum consistent with proctocolitis. DDx includes infectious colitis, inflammatory colitis, or immune mediated colitis in the setting of immunotherapy with Opdualag. Ischemic colitis was considered, but CT scan without evidence of arterial
narrowing.
#Proctocolitis
#Nonbloody Mucoid Diarrhea
#Leukocytosis and Fever
#Current Immunotherapy Use
-Leukocytosis, fever and hypotension suggesting septic shock
Currently off pressors and monitored in the ICU
Blood cultures negative so far, urine culture showing Enterococcus species.
on antibiotics-meropenem, vancomycin IV , fevers resolved
On stress dose steroids as well.
-Left-sided colitis noted on CT scan, no C. difficile, Campylobacter, Cryptosporidium and Giardia, cultures negative
Stool white cells positive
Also noted an abdominal x-ray with findings suggesting developing ileus and moderate to severe constipation with diffuse colonic stool burden
Off fentanyl and other narcotics.
Patient on clear liquid diet without any nausea or vomiting. Okay to give sips of full liquids and also sips of magnesium citrate to see if it helps clear out the colon.
Repeat abdominal x-ray tomorrow.
She is already on antibiotics for left-sided colitis and hopefully stress dose steroids will help with any possible immune-mediated colitis symptoms
Monitor electrolytes closely and replete
Will follow
Subjective
Subjective
Date of Service: April 24, 2025
Patient reports abdominal discomfort is improved but not resolved. No significant diarrhea yesterday, since this morning about 200 cc of loose stool without blood. No fevers or chills. Off pressors.
Objective
Data Reviewed
Laboratory Data:
Laboratory Results
04/24/25 03:57
04/24/25 03:57
Laboratory Results
PT 16.9 Sec (11.4-14.6) H 04/23/25 13:03
INR 1.32 04/23/25 13:03
APTT 42.0 Sec (23.4-35.0) H 04/23/25 13:03
Phosphorus 3.5 mg/dl (2.5-4.5) 04/23/25 06:08
Magnesium 1.8 mg/dl (1.6-2.3) 04/23/25 13:53
Total Bilirubin 1.0 mg/dl (0.2-1.3) 04/24/25 03:57
AST 32 U/L (14-36) 04/24/25 03:57
ALT 17 U/L (0-35) 04/24/25 03:57
Alkaline Phosphatase 139 U/L (38-126) H 04/24/25 03:57
Vital Signs and I&O:
Vital Signs
Temp Pulse Resp BP Pulse Ox
97.8 F 86 27 88/62 93
04/24/25 10:56 04/24/25 09:00 04/24/25 09:00 04/24/25 09:00 04/24/25 09:00
I&O
04/23/25 04/24/25 04/25/25
06:59 06:59 06:59
Intake Total 440 / 440 4873.0 / 4980.5 475.0 / 475.0
Balance 440 / 440 4873.0 / 4980.5 475.0 / 475.0
Physical Exam
Physical Exam
GI: Soft, Distended (Mildly distended) and Tender (Some discomfort on palpation in the mid abdomen)
--- NOTE | 2025-04-24 15:46 | PTCARENOTE ---
Pt remains OOB in chair- used BSC to void w/ assistance. Tolerating activity w/o complication. Remains on Levophed at 2mcg/min and NS @ 150ml/hr. FMS continues to drain liquid brown stool. Pt taking small sips Mag Citrate. Continues w/ poor appetite
eating 66% on cream of wheat and nothing else from breakfast tray. Declined to order lunch. Call chapman remains w/in pt reach. Visitor currently at bedside. No changes from previous assessment findings.
[2025-04-24] MEDS: PRAVACHOL 20 MG PO (17:15)
[2025-04-24 17:44] LABS: Glucose - Point of Care 139 mg/dl (70-99)
[2025-04-24] MEDS: NOVOLOG FLEXPEN-MODERATE RESISTANCE SC (17:49)
[2025-04-24] MEDS: ZOFRAN 4 MG IV (18:31)
[2025-04-24] MEDS: ATIVAN 0.5 MG PO (21:15)
[2025-04-24 21:22] LABS: Glucose - Point of Care 200 mg/dl (70-99)
[2025-04-25] VITALS (18 sets, daily range): BP systolic 102–146; BP diastolic 58–98; PULSE 99–111; O2SAT 96–97; BMI 20.3
[2025-04-25] MEDS: NSS 1000 IV ×2 (03:42→09:54)
--- NOTE | 2025-04-25 04:18 | PTCARENOTE ---
AM labs sent. pt remains oriented, SR on monitor. levo gtt remains off throughout shift, BP stable. on RA. FMS intact, minimal leakage, flushed. pt urinating on bedpan throughout shift, requested purewick to be placed this AM. IVF infusing. UA sent.
pt denies pain. call chapman in reach.
[2025-04-25 04:25] LABS: Hematocrit 27.9 % (37.0-47.0); Hemoglobin 9.7 g/dL (12.0-16.0); Mean Corp Hgb Conc. 34.8 g/dL (33.0-37.0); Mean Corpuscular Volume 89.1 fL (81.0-99.0); Platelet Count 375 10^3/uL (130-400); Red Cell Dist. Width 13.4 % (11.5-14.5)
[2025-04-25 04:33] LABS: ALT (SGPT) 20 U/L (0-35); AST (SGOT) 35 U/L (14-36); Albumin 2.5 g/dl (3.5-5.0); Alkaline Phosphatase 275 U/L (38-126); Blood Urea Nitrogen 19 mg/dl (7-17); Calcium 7.5 mg/dl (8.4-10.2); Carbon Dioxide 25 mmol/L (22-30); Chloride 110 mmol/L (98-107); Estimated Creatinine Clearance 54 ml/min; Glucose 122 mg/dl (70-99); Potassium 3.0 mmol/L (3.5-5.1); Sodium 136 mmol/L (135-145); Total Protein 4.9 g/dl (6.3-8.2); eGFR > 60.00
[2025-04-25] MEDS: MERREM 500 MG IV ×3 (05:36→21:42)
[2025-04-25] MEDS: STERILE WATER FOR INJECTION 10 ML IV ×3 (05:36→21:42)
[2025-04-25] MEDS: FLEXBUMIN 100 IV (05:36)
[2025-04-25] MEDS: KCL 100 IV (05:37)
[2025-04-25 05:44] LABS: Nucleated Red Blood Cells % 0 %
[2025-04-25] MEDS: SOLU-CORTEF 50 MG IV (08:00)
[2025-04-25] MEDS: NSS (PRESERVATIVE FREE) 10 ML IV (08:01)
[2025-04-25] MEDS: PROTONIX IV 40 MG IV (08:01)
[2025-04-25] MEDS: HEPARIN 5000 UNITS SC ×3 (08:01→23:53)
[2025-04-25] MEDS: SENOKOT-S 1 TABLET PO ×2 (08:01→21:42)
[2025-04-25] MEDS: NOVOLOG FLEXPEN-MODERATE RESISTANCE SC ×2 (08:09→16:40)
--- NOTE | 2025-04-25 08:17 | PHA.VAN.FU ---
Vancomycin Assessment / Plan
- Assessment
Renal Function: Stable
WBC's are: Trending Down
In the past 24 hrs, patient has been: Afebrile
Concomitant Antimicrobials: meropenem
- Assessment - Therapeutic Drug Monitoring
Random Level: 11.6 - drawn ~14.5H after previous dose of 750mg
- Dosing Plan
Dosing by Level: Re-dose today (Vanc 1000mg)
Will keep dose by level for now as patient appears to be clearing higher than population PK predicts
Patient may also be on cusp of Q12 vs Q24H dosing
Will keep with once daily dosing for today and increase by 250mg
- Monitoring Plan
Random Level: 04/26 06
- Follow Up
Pharmacy will continue to follow.
Vancomycin Follow UP
- -
Patient Age: 65
Patient Sex: Female
Vancomycin Day #: 3
Indication: Genito-Urinary Tract
Requesting Provider: Dr. Fay
Pertinent Antimicrobial Allergies:
bacitracin/polymyxin B - corneal ulcerations
Height / Weight:
Height 4 ft 11 in
Actual Weight 45.6 kg
IBW in k.5
Pertinent Past Medical History: BMI ~18.8, Bronchiectasis
- Vital Signs / Lab Results
Temp Pulse Resp BP Pulse Ox
97.6 F 91 28 128/77 2
04/25/25 07:34 04/25/25 04:00 04/25/25 04:00 04/25/25 06:00 04/25/25 06:36
Lab Results - Hematology
04/23/25 04/23/25 04/24/25
06:08 13:03 03:57
WBC 7.9 17.1 H 18.2 H
Band Neutrophils 49 H 21 H D
04/25/25
03:45
WBC 15.2 H
Band Neutrophils
Lab Results - Chemistry
04/22/25 04/23/25 04/23/25
07:21 06:08 13:03
BUN 18 H 24 H 22 H
Creatinine 0.8 1.3 H 1.2 H
Estimated Creat Clear 46 28 31
Albumin 2.8 L 1.9 L
04/23/25 04/23/25 04/24/25
13:53 18:27 03:57
BUN 25 H 24 H 22 H
Creatinine 1.3 H 1.1 H 0.9
Estimated Creat Clear 28 34 42
Albumin 2.4 L 2.4 L
04/25/25
03:45
BUN 19 H
Creatinine 0.7
Estimated Creat Clear 54
Albumin 2.5 L
04/23/25 04/23/25 04/23/25
10:52 11:25 15:19
Lactic Acid 4.4 H* Cancelled 1.6
04/23/25
23:25
Lactic Acid Cancelled
Microbiology Results
04/23/25 18:27 Blood Culture - Preliminary
Blood/Venous No Growth in 24 hours- Final report to follow
04/23/25 16:59 Blood Culture - Preliminary
Blood/Venous No Growth in 24 hours- Final report to follow
04/22/25 13:00 Urine Culture - Preliminary
Urine Enterococcus species
04/21/25 17:12 Salmonella/Shigella Culture - Final
Feces/Stool No Salmonella, Shigella, Aeromonas or Plesiomonas species
isolated.
Campylobacter Culture - Final
No Campylobacter species isolated.
Shiga Toxin Test - Final
No E. coli Shiga Toxin 1 or 2 detected.
04/22/25 11:24 Blood Culture - Preliminary
Blood/Venous No Growth in 48 hours- Final report to follow
04/22/25 10:53 Blood Culture - Preliminary
Blood/Venous No Growth in 48 hours- Final report to follow
Therapeutic Drug Monitoring
Random Vancomycin 11.6 ug/ml 04/25/25 03:45
[2025-04-25 08:21] LABS: Glucose - Point of Care 115 mg/dl (70-99)
--- NOTE | 2025-04-25 08:38 | PTCARENOTE ---
pt received from previous rn- aox4, nsr on monitor, 2LNC, pt states she feels like she has an increased appetite. complaints of mild abdominal pain at this time. fms intact, flushed. pt able to turn and reposition self. plan of care discussed with
mds and pt, pt verbalized understanding to poc and education. ivf continue. left double lumen picc flushed with good blood return. all safety precautions in place, call chapman within reach.
--- NOTE | 2025-04-25 08:52 | W.PN.INTV ---
Addendum entered and electronically signed by Donovan Ba MD 04/25/25 10:43:
Upon moving the patient she felt short of breath. First time that she has been able to move as abdominal pain is better.
Became short of breath and also mildly hypoxic to 2 L
Stat chest x-ray performed and showed volume overload
IV fluids will be discontinued
IV Lasix will be started
Pulmonary will continue to follow briefly for hypoxemia.
Original Note:
Today's Communication / Plan
Recommendations
Potassium has been repleted
Continue IV fluids
Continue fecal management system
Continue antibiotics and follow cultures-hopefully can be narrowed down soon
Urine culture final identification pending
Out of bed as able
Transfer to [facility]
Sign off
Assessment
-
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
hypotension and potential need for norepinephrine-pulmonary consulted for shortness of breath/bronchiectasis 04/23/2025.
Transferred to the critical care unit 04/23/2025 after developing shock.
Septic shock
Proctocolitis/diarrhea/hypotension
Possible UTI: Enterococcus in the urine
Immunosuppression: On immunotherapy for melanoma Opdualag
Ileus
Adrenal insufficiency from prior immunotherapy-takes hydrocortisone 15 mg daily
JACLYN
Leukocytosis
Bronchiectasis
Conditions present prior to admission:
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
Adrenal insufficiency
Diabetes.
Hyperlipidemia.
Breast cancer/bilateral mastectomy.
GERD.
Plan:
Developed septic shock 04/23/2025 with acute kidney injury requiring vasopressors-and transferred to the critical care unit
Clinically improved.
Vasopressors discontinued
Renal function normalized
Lactic acid has cleared
Fever curve improved
Leukocytosis persistent but improved.
-
Source of infection likely dubcu-ajdlmsify-phx colitis: Possibly infectious/stercoral versus immunotherapy related
GI following. Narcotics have been discontinued-patient was on chronic fentanyl patch
Continue current antibiotics without change-hopefully can narrow down antibiotics in the next 24 hours.
Patient has significant stool burden-Bowel regimen will be started per GI.
Fecal management system in place.
Patient continues to have liquid diarrhea-? Overflow
Cultures negative but white blood cell count is elevated on stool
-
Enterococcus in the urine: Final identification pending
UA not highly suggestive of UTI but patient is immunosuppressed. Covered with antibiotics for now.
-
Consider decreasing IV corticosteroids in the next 24 hours if remains stable.
-
There is no evidence for pulmonary source of infection.
Currently on room air
Patient has history of chronic bronchiectasis and saw Dr. Cook at [place] in the past not on specific therapy-'Trelegy and albuterol as needed', not on vest therapy, etc. and was told to follow-up as needed
Respiratory status relatively stable
Radiographs summarized below
Supplemental oxygen as needed
Aspiration precautions
Mucolytic's as needed
Mucus clearing devices as needed
-
Acute kidney injury: Likely prerenal. Improved after fluid resuscitation and vasopressor support.
Renal function normalized.
Continue IV hydration as the patient has poor p.o. intake and continues to have diarrhea. Monitor electrolytes daily
Potassium will be repleted-follow later per primary team
Intolerant to oral diet
-
Oncology evaluation ongoing-correspondence reviewed
History of adrenal insufficiency-hydrocortisone initiated
Holding immunotherapy for now
Follow hemoglobin and leukocytosis
Daily CBC
DVT prophylaxis-on subcu heparin
Nutrition-currently on a clear liquid diet.
Bowel regimen started
Early mobilization-physical therapy/Occupational Therapy, out of bed as able.
Hyperglycemia: Improved
D5 LR drip discontinued
Insulin sliding scale will continue
Dr. Gong reviewed case with primary team, oncology and nursing. 04/24/2025.
Dr. Gong updated son at the bedside 04/23/2025
No additional critical care recommendations.
Transfer to [facility]
Sign off
Diagnostic data:
Chest x-ray 06/10/2021-small left pneumothorax
Chest x-ray 04/22/2025-large amount of asymmetrical opacification right upper lung field appears new from 2020
CT abdomen and pelvis 04/21/25-bronchiectasis with partial collapse right middle lobe endometrial thickening approximately 1.2 cm, dedicated pelvic ultrasound recommended, mild compression deformity L4, long segment wall thickening and mucosal
hyperenhancement involving the mid sigmoid colon and rectum consistent with proctocolitis
Subjective Dataa
Subjective Data
Date of Service:
Date of Service: April 25, 2025
Chief Complaint: [employer] Follow Up (Septic shock//colitis)
Subjective:
Abdominal pain improved
Denies shortness of breath
Continues to have watery stools
Afebrile
Vasopressors discontinue
Review of Systems
Cardiopulmonary: Dyspnea (n) and Dyspnea on Exertion (n)
GI: Abdominal Pain and Diarrhea
Objective Data
Data Reviewed
Vital Signs / I&O / Oxygen:
Vital Signs
Temp Pulse Resp BP Pulse Ox
97.6 F 94 23 133/92 96
04/25/25 07:34 04/25/25 08:00 04/25/25 08:00 04/25/25 08:00 04/25/25 08:24
Intake and Output
04/24/25 04/25/25 04/26/25
06:59 06:59 06:59
Intake Total 4873.0 / 4980.5 4262.5 / 4412.5 290 / 290
Output Total 500 / 500
Balance 4873.0 / 4980.5 3762.5 / 3912.5 290 / 290
SaO2 96
Nasal Cannula flow liters per 2
minute
Physical Exam
General: Comfortable
HEENT: Normocephalic
Cardiovascular: S1-S2
Respiratory: Clear and Non-Labored Respirations
GI: Soft, Non Tender, Other (Fecal management system with watery stools) and Other (Decreased bowel sounds)
Neurology: Awake, Alert, Oriented and No Motor Deficits
Skin: Warm
Labs/Micro/Reports
Lab Data
04/25/25 03:45
Microbiology
04/23/25 18:27 Blood/Venous Blood Culture - Preliminary
No Growth in 24 hours- Final report to follow
04/23/25 16:59 Blood/Venous Blood Culture - Preliminary
No Growth in 24 hours- Final report to follow
04/22/25 13:00 Urine Urine Culture - Preliminary
Enterococcus species
04/21/25 17:12 Feces/Stool Salmonella/Shigella Culture - Final
No Salmonella, Shigella, Aeromonas or Plesiomonas species
isolated.
04/21/25 17:12 Feces/Stool Campylobacter Culture - Final
No Campylobacter species isolated.
04/21/25 17:12 Feces/Stool Shiga Toxin Test - Final
No E. coli Shiga Toxin 1 or 2 detected.
04/22/25 11:24 Blood/Venous Blood Culture - Preliminary
No Growth in 48 hours- Final report to follow
04/22/25 10:53 Blood/Venous Blood Culture - Preliminary
No Growth in 48 hours- Final report to follow
04/22/25 12:59 Feces/Stool Stool Leukocytes - Final
04/22/25 12:59 Feces/Stool Cryptosporidium/Giardia - Final
Negative for Cryptosporidium and/or Giardia Lamblia
antigens.
[2025-04-25 09:21] LABS: Magnesium 2.6 mg/dl (1.6-2.3)
--- NOTE | 2025-04-25 09:43 | PN.CDI ---
Addendum entered and electronically signed by Robert Fay MD 04/25/25 10:37:
this was not on admission
Original Note:
CDI
- -
CDI:
Physician Documentation Request
Admit Date: 04/21/25 18:42
Dear Doctor Nya,
Patient presented to the ED persistent diarrhea and abdominal pain. Patient found to have proctocolitis.
04/24 progress notes include a diagnosis of septic shock
04/21 WBC 16.7, t max 04/21 100.7, 04/21 heart rates documented 90-100, respiratory rates 14-16.
Please clarify the following:
Sepsis was present on admission
Sepsis was not present on admission
Unable to determine
Sepsis
-Systemic manifestations of infection, with 2 or more SIRS criteria which include:
-Fever > 100.9��F or hypothermia < 96.8��F
-Leukocytosis WBC > 12,000 or leukopenia, WBC < 4,000, or > 10% bands
-Tachycardia- > 90 beats/minute
-Tachypnea- RR > 20 breaths/minute or PaCO2 < 32mmHg
Source: Merck Manual 2013
Use of terms such as suspected, likely, concern for, or probable (associated with a specific diagnosis that is being evaluated, monitored, or treated as if it exists) are acceptable and can be coded in the inpatient setting, when documented at the
time of discharge.
Thank you,
Gita Alcaraz RN, BSN
CDI Specialist
tiger text
Please use your independent medical judgment in providing your response.
[2025-04-25] MEDS: CALCIUM GLUCONATE 100 IV (09:53)
[2025-04-25] MEDS: KCL 270 MEQ IV (09:54)
--- NOTE | 2025-04-25 09:55 | PN.CDI ---
Addendum entered and electronically signed by Robert Fay MD 04/25/25 10:37:
clinically irrelevant
Original Note:
CDI
- -
CDI:
Physician Documentation Request
Admit Date: 04/21/25 18:42
Dear Doctor Nya,
Patient being treated for proctocolitis.
Sodium results:
Laboratory Tests
04/21/25 04/22/25 04/23/25
13:48 07:21 13:03
Sodium 133 L 135 119 L* D
04/24/25 04/25/25
03:57 03:45
Sodium 130 L 136
Could you please provide a diagnosis that supports the above lab abnormalities and additional evaluation/ monitoring:
Hyponatremia
Abnormal lab value clinically insignificant
Other
Use of terms such as suspected, likely, concern for, or probable (associated with a specific diagnosis that is being evaluated, monitored, or treated as if it exists) are acceptable and can be coded in the inpatient setting, when documented at the
time of discharge.
Thank you,
Gita Alcaraz RN, BSN
CDI Specialist
tiger text
Please use your independent medical judgment in providing your response.
--- NOTE | 2025-04-25 10:25 | PTCARENOTE ---
pt oob to chair with minimal assist, pt complaining of sob, sats 96% on 2LNC rr 24, Dr. Gong and Dr. Barnes aware, stat cxr completed
--- NOTE | 2025-04-25 10:31 | W.PN.HOSP.TC ---
Today's Communication/Plan
-
Lasix, stop IVF - patient increasing oral intake
watch labs in AM
transfer to IMU
Assessment / Plan
Assessment / Plan
65yo F with PMHx of iatrogenic adrenal insufficiency, chronic pain, vulvar melanoma s/p RT and resection, managed by Dr.Melanie Vasquez in [facility] on Opdualag with most recent injection done few weeks ago came with worsening weakness,
mucoid diarrhea, later switched to watery and lower abdominal pain. CT showed long segment wall thickening and mucosal hyperenhancement involving the mid sigmoid colon to the rectum consistent with proctocolitis. Patient also developed fevers and
hypotension on 04/23/25 with that increased steroids to stress level doses, increased hydration
A/P:
#Proctocolitis with watery diarrhea - overflow diarrhea?
#Moderate/severe constipation
#Ileus, concern for developing SBO
most likely opioid-induced constipation - attempt Relistor
FMS: brown liquid stool
while no nausea/vomiting - avoid NG tube
C.diff neg
Stool Cx NTD
Multiple WBC in stool
GI consult
Cannot exclude immunotherapy-induced colitis - now on high dose steroids
GI has no concern for ischemic colitis with no significant mesenteric vessel obstruction on CT reading
#Acute hypoxic insufficiency
2/2 volume overload with hydration
Lasix on 04/25/25
decrease IVF
#Fever, possible UTI
#Septic shock with bandemia
Pressor support, wean as tolerated
2/2 colitis vs other
with immunosuppression
Bcx NTD, repeated also pending
XR with RML concern for infection
Ucx - Enterococcus - Started Vanco/Merrem on 04/23/25 due to shock, await Cx for appropriate adjustment
#JACLYN
suspect multiple bowel movements caused dehydration
resolving on IVF
Urine studies
Follow I&O, bladder scan (Mar[place]illa could not be placed by RN due to inability to pass the catheter, patient with Hx of abdominal Sx)
#DM with hypoglycemia (2/2 poor oral intake on admission) and hyperglycemia 2/2 steroids
most likely hypoglycemia 2/2 poor oral intake with abdominal pain
cont Accuchecks, insulin SS, DM diet when able to eat
Hold oral hypoglycemics
#Vulvar melanoma with mets to lungs
#Chemotherapy-induced Adrenal insufficiency
S/P RT and surgical resection
discussed with : patient with poor prognosis
Oncology consult: hold Nilotinib, cont hydrocortisone
#HLD
#Chronic pain with opioid dependency
cont home meds
#Anemia, unspecified
2/2 CA and acute disease
watch for GI bleed - colitis will cause FOBT pos stool, so no clinical value in check, however colors are brown in FMS
Exacerbated by aggressive hydration
restart hep ppx closely watching hgb
#Malnutrition with cachexia
2/2 CA, patient reported poor appetite and weight loss
when appropriate - use Ensure
#Acute hypoxic insufficiency
#Bronchiectasis with RML partial collapse, can be infectious
Sputum Cx
Pulm consult: stable bronchiectasis, known, use mucus clearing devices as needed
acapella
#endometrial thickening measuring approximately 1.2 cm
eventual TV US, most likely outpatient
#Mild compression deformity of the L4 vertebral body
chronic
#Hypokalemia
#Hypocalcemia
replete and follow
#Elevated Alk.phos
CT ABD: Bile Ducts: Within normal limits. Gallbladder: Within normal limits. - therefore most likely 2/2 cancer
DVT ppx hep
Full code
I have spent at least 55min spent reviewing chart, test results, communication with consultants and providing direct patient care
Anticipated Discharge: > 48 hours
Subjective/Interval History
-
Date of Service: April 25, 2025
Objective Data
-
Labs:
Laboratory Results
04/25/25 04/25/25 04/25/25
03:45 10:00 13:00
WBC 15.2 H
Hgb 9.7 L
Hct 27.9 L
Plt Count 375
Sodium 136 Cancelled Pending
Potassium 3.0 L Cancelled Pending
Chloride 110 H Cancelled Pending
Carbon Dioxide 25 Cancelled Pending
BUN 19 H Cancelled Pending
Creatinine 0.7 Cancelled Pending
Glucose 122 H Cancelled Pending
Calcium 7.5 L Cancelled Pending
Total Bilirubin 0.8
AST 35
ALT 20
Alkaline Phosphatase 275 H
Vital Signs:
Vital Signs
Temp Pulse Resp BP Pulse Ox
97.6 F 94 23 133/92 96
04/25/25 07:34 04/25/25 08:00 04/25/25 08:00 04/25/25 08:00 04/25/25 08:24
I&O
04/24/25 04/25/25 04/26/25
06:59 06:59 06:59
Intake Total 4873.0 / 4980.5 4262.5 / 4412.5 290 / 290
Output Total 500 / 500
Balance 4873.0 / 4980.5 3762.5 / 3912.5 290 / 290
Physical Exam
-
General: No Apparent Distress and Cachectic
HEENT: Moist Mucous Membranes
Respiratory: Clear to Auscultation
Cardiac: Regular Rhythm
GI: Soft, Nontender and Nondistended
Rectal: Brown
Musculoskeletal: No Clubbing, No Cyanosis and No Edema
Neuro: Awake, Alert, Oriented and AO x 3
Psych: Calm
--- NOTE | 2025-04-25 10:33 | W.PN.ONC2 ---
Today's Communication / Plan
-
monitor stool output -appreciate GI input
on stress dose steroids
hold opdualag (nivolmab/relatlimab), nilotinib
Impression
Impression
vulvar melanoma, KIT-mutated, and metastatic, on nilotinib (oral TKI) and Opdualag (immunotherapy, s/p 3 cycles)
non-bloody diarrhea -proctocolitis -cultures negative-concern for immune meditated colitis
possible ileus on ab xray 04/23
leukocytosis shock +/- steroids
Enterococcus UTI
adrenal insuff from prior immunotherapy, takes hydrocortisone 15mg daily [employer]OR
JACLYN -resolved
hypotension -resolved
fever -resolved
Plan
Plan
on hydrocortisone 50mg Q8 which is equivalent to 37.5mg prednisone (approximately 1mg/kg/day prednisone)
follow cultures -on IV abx
hold opdualag (nivolmab/relatlimab), nilotinib
GI to consider flex sig
OP follow up with Dr. Vasquez for next steps in metastatic melanoma management
Subjective/Objective
Subjective
no new complaints
Vital Signs:
Vital Signs
Temp Pulse Resp BP Pulse Ox
97.6 F 94 23 133/92 96
04/25/25 07:34 04/25/25 08:00 04/25/25 08:00 04/25/25 08:00 04/25/25 08:24
Lab Results:
Laboratory Data
WBC 15.2 10^3/uL (4.8-10.8) H 04/25/25 03:45
Hgb 9.7 g/dL (12.0-16.0) L 04/25/25 03:45
Plt Count 375 10^3/uL (130-400) 04/25/25 03:45
PT 16.9 Sec (11.4-14.6) H 04/23/25 13:03
INR 1.32 04/23/25 13:03
APTT 42.0 Sec (23.4-35.0) H 04/23/25 13:03
eGFR Cancelled 04/25/25 10:00
Physical Exam
pale
HEENT: Moist Mucous Membranes; No Jaundice
Pulmonary: Other (unlabored)
GI: Soft and Other (TTP)
Extremities: Pulses Present; No Edema
Neuro: Non Focal
[2025-04-25] MEDS: LASIX 40 MG IV (10:46)
--- NOTE | 2025-04-25 10:50 | W.PN.GI.CBS2 ---
Addendum entered and electronically signed by Shawn Ruiz MD 04/25/25 16:48:
I saw and examined the patient.
The medical staff manager note was reviewed and I agree with the note.
Having multiple BMs after mag citrate. Feeling better. Denies any abdominal pain. likely stercoral colitis in the setting of severe constipation and overflow diarrhea
Repeat abdominal x-ray today
FINDINGS:
There is a nonobstructive bowel gas pattern. Small amount of residual oral contrast seen within the pelvis. Moderate gaseous distention of several segments of colon with overall significantly improved stool burden. Scattered clips within the lower
abdomen and pelvis.
plan
Okay to advance to low residual diet
Avoid constipation. Daily bowel regimen-Metamucil/MiraLAX/colace on discharge
Further management of sepsis/pneumonia as per medical team
No further GI recommendation at this point. Will sign off. Please call us back if any questions
Original Note:
Today's Communication / Plan
-
.
Assessment / Plan
-
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 In the
emergency department she presented with tender and mildly distended abdomen, WBC 16.7, plt 488, AST/ALT 36/27, Alk Phos 363, T Bili 1.1. CT imaging showed long segment wall thickening and mucosal hyperenhancement involving the mid sigmoid colon to
the rectum consistent with proctocolitis. DDx includes infectious colitis, inflammatory colitis, or immune mediated colitis in the setting of immunotherapy with Opdualag. Ischemic colitis was considered, but CT scan without evidence of arterial
narrowing.
She was transferred to ICU yesterday for septic shock requiring pressors. Patient no longer on pressors today. Transfered back to med/surg. Blood cx negative x 2. Abdominal XR this AM shows non obstructive bowel gas pattern (improved from prior), no
obstruction, and significantly improved stool burden s/p MagCitrate.
On antibiotics-meropenem, vancomycin IV , fevers resolved.
On stress dose steroids as well.
#Proctocolitis
#Nonbloody Mucoid Diarrhea
#Fecal Leukocytes
#Leukocytosis and Fever
#Enterococcus UTI
#Sepsis (resolved)
#Current Immunotherapy Use, possible Immune-Mediated Colitis Component
#Overflow Diarrhea
Patient with likely stercoral colitis in the setting of constipation and overflow diarrhea given improvement s/p relief of stool burden.
-Avoid Narcotics
-Tolerating CLD, advance to LRD
-SOB, CXR, possible PNA per primary team
-Continune abx and stress dose steroids. Narrow as cultures result.
-Ok to discontinue magnesium citrate with improving stool burden.
-Patient will likely need an outpatient bowel regimen going forward
-Monitor electrolytes and replete as needed
Will follow
Subjective
Subjective
Date of Service: April 25, 2025
Patient seen and examined while resting comfortably in recliner, eating cream of wheat. Patient endorses some shortness of breath this morning, which is unrelated to GI symptoms, but is keeping her from being able to eat. Otherwise states that she
she is tolerating a clear liquid diet well. Cream of wheat this morning was the first full liquid she has tried. Otherwise denies abdominal pain, nausea, vomiting. Endorses successful movements of bowel with magnesium citrate.
Objective
Data Reviewed
Laboratory Data:
Laboratory Results
04/25/25 03:45
Laboratory Results
PT 16.9 Sec (11.4-14.6) H 04/23/25 13:03
INR 1.32 04/23/25 13:03
APTT 42.0 Sec (23.4-35.0) H 04/23/25 13:03
Phosphorus 3.5 mg/dl (2.5-4.5) 04/23/25 06:08
Magnesium Cancelled 04/25/25 10:00
Total Bilirubin 0.8 mg/dl (0.2-1.3) 04/25/25 03:45
AST 35 U/L (14-36) 04/25/25 03:45
ALT 20 U/L (0-35) 04/25/25 03:45
Alkaline Phosphatase 275 U/L (38-126) H 04/25/25 03:45
Vital Signs and I&O:
Vital Signs
Temp Pulse Resp BP Pulse Ox
97.6 F 94 23 133/92 96
04/25/25 07:34 04/25/25 08:00 04/25/25 08:00 04/25/25 08:00 04/25/25 08:24
I&O
04/24/25 04/25/25 04/26/25
06:59 06:59 06:59
Intake Total 4873.0 / 4980.5 4262.5 / 4412.5 290 / 290
Output Total 500 / 500
Balance 4873.0 / 4980.5 3762.5 / 3912.5 290 / 290
Physical Exam
Physical Exam
HEENT: Anicteric
GI: Soft, Non Distended, Non Tender and Normal Bowel Sounds
[2025-04-25] MEDS: NOVOLOG FLEXPEN-MODERATE RESISTANCE 3 UNITS SC (12:55)
[2025-04-25 13:03] LABS: Glucose - Point of Care 201 mg/dl (70-99)
--- NOTE | 2025-04-25 13:22 | CM ---
IV/Meropenem and Solu-Cortef. Abd x-ray with no evidence of obstruction, SOB, CXR volume overload, Dose of IV/Lasix. Discharge POC: Home with RN, PT/OT. Referral forwarded.
[2025-04-25] MEDS: VANCOCIN 200 IV (13:56)
[2025-04-25 15:00] LABS: Blood Urea Nitrogen 19 mg/dl (7-17); Calcium 8.3 mg/dl (8.4-10.2); Carbon Dioxide 25 mmol/L (22-30); Chloride 109 mmol/L (98-107); Estimated Creatinine Clearance 47 ml/min; Glucose 130 mg/dl (70-99); Potassium 3.7 mmol/L (3.5-5.1); Sodium 139 mmol/L (135-145); eGFR > 60.00
[2025-04-25 16:35] LABS: Glucose - Point of Care 109 mg/dl (70-99)
--- NOTE | 2025-04-25 16:42 | PTCARENOTE ---
Pt received from ICU. Pt AAOx3, VSS, currently sating 96% on 2L O2. FMS in place. IV Vanco and KCL completed. Pt complaining of some nausea but refusing prn zofran @this time. Pt states pain in abdomen is improving and belly feels soft. Pt has no
needs at this time, call chapman is within reach. POC ongoing.
[2025-04-25] MEDS: PRAVACHOL 20 MG PO (17:21)
[2025-04-25] MEDS: ZOFRAN 4 MG IV (18:52)
[2025-04-25] MEDS: ATIVAN 0.5 MG PO (21:42)
[2025-04-25 22:25] LABS: Glucose - Point of Care 152 mg/dl (70-99)
[2025-04-26 05:50] LABS: Hematocrit 27.3 % (37.0-47.0); Hemoglobin 9.3 g/dL (12.0-16.0); Mean Corp Hgb Conc. 34.1 g/dL (33.0-37.0); Mean Corpuscular Volume 89.2 fL (81.0-99.0); Nucleated Red Blood Cells % 0.2 %; Platelet Count 368 10^3/uL (130-400); Red Cell Dist. Width 13.5 % (11.5-14.5)
[2025-04-26 06:15] LABS: ALT (SGPT) 16 U/L (0-35); AST (SGOT) 26 U/L (14-36); Albumin 2.7 g/dl (3.5-5.0); Alkaline Phosphatase 225 U/L (38-126); Blood Urea Nitrogen 17 mg/dl (7-17); Calcium 7.7 mg/dl (8.4-10.2); Carbon Dioxide 29 mmol/L (22-30); Chloride 107 mmol/L (98-107); Estimated Creatinine Clearance 47 ml/min; Glucose 77 mg/dl (70-99); Magnesium 2.6 mg/dl (1.6-2.3); Potassium 2.8 mmol/L (3.5-5.1); Sodium 139 mmol/L (135-145); Total Protein 5.0 g/dl (6.3-8.2); eGFR > 60.00
[2025-04-26] MEDS: STERILE WATER FOR INJECTION 10 ML IV ×3 (06:45→22:54)
[2025-04-26] MEDS: MERREM 500 MG IV ×3 (06:45→22:53)
[2025-04-26 07:00] VITALS: BP 131/82
[2025-04-26] MEDS: TYLENOL 650 MG PO (07:26)
--- NOTE | 2025-04-26 08:35 | PHA.VAN.FU ---
Vancomycin Assessment / Plan
- Assessment
Renal Function: Stable
WBC's are: Trending Down
In the past 24 hrs, patient has been: Afebrile
Concomitant Antimicrobials: meropenem
- Assessment - Therapeutic Drug Monitoring
Random Level: 14.2
- Dosing Plan
Dosing by Level: Re-dose today (vancomycin 1000 mg x 1)
- Monitoring Plan
Random Level: 04/27 @0600
- Follow Up
Pharmacy will continue to follow.
Vancomycin Follow UP
- -
Patient Age: 65
Patient Sex: Female
Vancomycin Day #: 4
Indication: Genito-Urinary Tract
Requesting Provider: Dr. Fay
Pertinent Antimicrobial Allergies:
bacitracin/polymyxin B - corneal ulcerations
Height / Weight:
Height 4 ft 11 in
Actual Weight 44.815 kg
IBW in k.5
Pertinent Past Medical History: BMI ~18.8, Bronchiectasis
- Vital Signs / Lab Results
Temp Pulse Resp BP Pulse Ox
98.4 F 91 16 131/82 97
04/26/25 07:00 04/26/25 07:00 04/26/25 07:00 04/26/25 07:00 04/26/25 07:00
Lab Results - Hematology
04/23/25 04/24/25 04/25/25
13:03 03:57 03:45
WBC 17.1 H 18.2 H 15.2 H
Band Neutrophils 21 H D
04/26/25
05:19
WBC 11.4 H
Band Neutrophils
Lab Results - Chemistry
04/23/25 04/23/25 04/23/25
13:03 13:53 18:27
BUN 22 H 25 H 24 H
Creatinine 1.2 H 1.3 H 1.1 H
Estimated Creat Clear 31 28 34
Albumin 1.9 L 2.4 L
04/24/25 04/25/25 04/25/25
03:57 03:45 10:00
BUN 22 H 19 H Cancelled
Creatinine 0.9 0.7 Cancelled
Estimated Creat Clear 42 54 Cancelled
Albumin 2.4 L 2.5 L
04/25/25 04/26/25
13:54 05:19
BUN 19 H 17
Creatinine 0.8 0.8
Estimated Creat Clear 47 47
Albumin 2.7 L
04/23/25 04/23/25 04/23/25
10:52 11:25 15:19
Lactic Acid 4.4 H* Cancelled 1.6
04/23/25
23:25
Lactic Acid Cancelled
Microbiology Results
04/23/25 18:27 Blood Culture - Preliminary
Blood/Venous No Growth in 48 hours- Final report to follow
04/23/25 16:59 Blood Culture - Preliminary
Blood/Venous No Growth in 48 hours- Final report to follow
04/22/25 13:00 Urine Culture - Final
Urine
04/22/25 11:24 Blood Culture - Preliminary
Blood/Venous No Growth in 72 hours- Final report to follow
04/22/25 10:53 Blood Culture - Preliminary
Blood/Venous No Growth in 72 hours- Final report to follow
04/21/25 17:12 Salmonella/Shigella Culture - Final
Feces/Stool No Salmonella, Shigella, Aeromonas or Plesiomonas species
isolated.
Campylobacter Culture - Final
No Campylobacter species isolated.
Shiga Toxin Test - Final
No E. coli Shiga Toxin 1 or 2 detected.
Therapeutic Drug Monitoring
Random Vancomycin 14.2 ug/ml 04/26/25 05:19
[2025-04-26] MEDS: POTASSIUM PHOSPHATE 259.0909 MEQ IV ×2 (09:00→13:13)
[2025-04-26] MEDS: SENOKOT-S 1 TABLET PO (09:01)
[2025-04-26] MEDS: HEPARIN 5000 UNITS SC ×3 (09:02→22:59)
[2025-04-26 09:05] LABS: Glucose - Point of Care 96 mg/dl (70-99)
[2025-04-26] MEDS: NOVOLOG FLEXPEN-MODERATE RESISTANCE SC ×2 (09:05→12:30)
[2025-04-26] MEDS: DECADRON 6 MG IV (10:07)
[2025-04-26] MEDS: VANCOCIN 200 IV (10:09)
--- NOTE | 2025-04-26 12:19 | W.PN.HOSP.TC ---
Today's Communication/Plan
-
switch to Decadron as patient reports anxiety and insomnia, contributes it to evening hydrocortisone dose
Procalcitonin and target to stop Abx if neg in AM
Repklete phosphorus and potassium, follow BMP
cont IVF
one more day of FMS since patient reported frequent peristaltic waves with liwuid stool
Assessment / Plan
Assessment / Plan
65yo F with PMHx of iatrogenic adrenal insufficiency, chronic pain, vulvar melanoma s/p RT and resection, managed by Dr.Melanie Vasquez in [facility] on Opdualag with most recent injection done few weeks ago came with worsening weakness,
mucoid diarrhea, later switched to watery and lower abdominal pain. CT showed long segment wall thickening and mucosal hyperenhancement involving the mid sigmoid colon to the rectum consistent with proctocolitis. Patient also developed fevers and
hypotension on 04/23/25 with that increased steroids to stress level doses, increased hydration
A/P:
#Proctocolitis with watery diarrhea - overflow diarrhea?
#Moderate/severe constipation
#Ileus, concern for developing SBO
most likely opioid-induced constipation - attempt Relistor
FMS: brown liquid stool
while no nausea/vomiting - avoid NG tube
C.diff neg
Stool Cx NTD
Multiple WBC in stool
GI consult
Cannot exclude immunotherapy-induced colitis - now on high dose steroids
GI has no concern for ischemic colitis with no significant mesenteric vessel obstruction on CT reading
#Acute hypoxic insufficiency
2/2 volume overload with hydration
Lasix on 04/25/25
decrease IVF
#Fever, possible UTI
#Septic shock with bandemia
Pressor support, wean as tolerated
2/2 colitis vs other
with immunosuppression
Bcx NTD, repeated also pending
XR with RML concern for infection
Ucx - Enterococcus - Started Vanco/Merrem on 04/23/25 due to shock, await Cx for appropriate adjustment
#JACLYN
suspect multiple bowel movements caused dehydration
resolving on IVF
Urine studies
Follow I&O, bladder scan (Maravilla could not be placed by RN due to inability to pass the catheter, patient with Hx of abdominal Sx)
#DM with hypoglycemia (2/2 poor oral intake on admission) and hyperglycemia 2/2 steroids
most likely hypoglycemia 2/2 poor oral intake with abdominal pain
cont Accuchecks, insulin SS, DM diet when able to eat
Hold oral hypoglycemics
#Vulvar melanoma with mets to lungs
#Chemotherapy-induced Adrenal insufficiency
S/P RT and surgical resection
discussed with : patient with poor prognosis
Oncology consult: hold Nilotinib, cont steroids
#HLD
#Chronic pain with opioid dependency
cont home meds
#Anemia, unspecified
2/2 CA and acute disease
watch for GI bleed - colitis will cause FOBT pos stool, so no clinical value in check, however colors are brown in FMS
Exacerbated by aggressive hydration
restart hep ppx closely watching hgb
#Malnutrition with cachexia
2/2 CA, patient reported poor appetite and weight loss
when appropriate - use Ensure
#Acute hypoxic insufficiency
#Bronchiectasis with RML partial collapse, can be infectious
Sputum Cx
Pulm consult: stable bronchiectasis, known, use mucus clearing devices as needed
acapella
#endometrial thickening measuring approximately 1.2 cm
eventual TV US, most likely outpatient
#Mild compression deformity of the L4 vertebral body
chronic
#Hypokalemia
#Hypocalcemia
replete and follow
#Elevated Alk.phos
CT ABD: Bile Ducts: Within normal limits. Gallbladder: Within normal limits. - therefore most likely 2/2 cancer
DVT ppx hep
Full code
I have spent at least 52min spent reviewing chart, test results, communication with consultants and providing direct patient care
Anticipated Discharge: > 48 hours
Subjective/Interval History
-
Date of Service: April 26, 2025
Objective Data
-
Labs:
Laboratory Results
04/26/25 04/26/25
05:19 16:00
WBC 11.4 H
Hgb 9.3 L
Hct 27.3 L
Plt Count 368
Sodium 139 Pending
Potassium 2.8 L Pending
Chloride 107 Pending
Carbon Dioxide 29 Pending
BUN 17 Pending
Creatinine 0.8 Pending
Glucose 77 Pending
Calcium 7.7 L Pending
Total Bilirubin 0.7
AST 26
ALT 16
Alkaline Phosphatase 225 H
Vital Signs:
Vital Signs
Temp Pulse Resp BP Pulse Ox
98.4 F 91 16 131/82 97
04/26/25 07:00 04/26/25 07:00 04/26/25 07:00 04/26/25 07:00 04/26/25 07:00
I&O
04/25/25 04/26/25 04/27/25
06:59 06:59 06:59
Intake Total 4262.5 / 4412.5 530 / 530
Output Total 500 / 500 800 / 800
Balance 3762.5 / 3912.5 -270 / -270
Review of Systems
-
History Source: Patient
All other systems: Reviewed and negative
Abdomen/GI: Reports Bloated
Physical Exam
-
General: No Apparent Distress
HEENT: Normocephalic
Cardiac: Regular Rhythm
GI: Soft, Nontender and Nondistended
Neuro: Awake, Alert, Oriented and AO x 3
Psych: Calm
[2025-04-26 12:28] LABS: Glucose - Point of Care 127 mg/dl (70-99)
--- NOTE | 2025-04-26 13:11 | W.PN.ONC ---
Today's Communication / Plan
-
wean steroids back to home dose - hydrocortisone 15mg/d
abx per primary team
Impression
Impression
vulvar melanoma, KIT-mutated, and metastatic, on nilotinib (oral TKI) and Opdualag (immunotherapy, s/p 3 cycles)
non-bloody diarrhea -proctocolitis - thought overflow diarrhea from constipation, less likely immune-mediated diarrhea
leukocytosis shock +/- steroids
Enterococcus UTI
adrenal insuff from prior immunotherapy, takes hydrocortisone 15mg daily [employer]
JACLYN -resolved
hypotension -resolved
fever -resolved
Plan
Plan
Was on hydrocortisone 50mg Q8 which is equivalent to 37.5mg prednisone (approximately 1mg/kg/day prednisone), switched to Dexamethasone 6mg qam today (~40mg pred/d). With suspicion for immune mediated colitis much less now, will wean steroids back
to home dose of hydrocortisone 15mg/d over the next couple days.
ie, Dex 4mg on Monday, 2mg on Monday, Hydrocortisone to resume Monday - orders updated
Bowel mgmt per primary team - rectal tube still in place
follow cultures -on IV abx per primary team
hold opdualag (nivolumab/relatlimab), nilotinib
OP follow up with Dr. Vasquez for next steps in metastatic melanoma management
Subjective/Objective
Subjective/Objective
still with high volume stool output following mag citrate
c/o dyspnea
Vital Signs:
Vital Signs
Temp Pulse Resp BP Pulse Ox
98.4 F 91 16 131/82 97
04/26/25 07:00 04/26/25 07:00 04/26/25 07:00 04/26/25 07:00 04/26/25 07:00
Lab Results:
Laboratory Data
WBC 11.4 10^3/uL (4.8-10.8) H 04/26/25 05:19
Hgb 9.3 g/dL (12.0-16.0) L 04/26/25 05:19
Plt Count 368 10^3/uL (130-400) 04/26/25 05:19
PT 16.9 Sec (11.4-14.6) H 04/23/25 13:03
INR 1.32 04/23/25 13:03
APTT 42.0 Sec (23.4-35.0) H 04/23/25 13:03
eGFR > 60.00 04/26/25 05:19
[2025-04-26] MEDS: LR 1000 IV ×2 (13:14→22:59)
[2025-04-26 15:00] VITALS: BP 123/89
[2025-04-26] MEDS: PRAVACHOL 20 MG PO (16:52)
[2025-04-26 17:05] LABS: Glucose - Point of Care 213 mg/dl (70-99)
[2025-04-26] MEDS: NOVOLOG FLEXPEN-MODERATE RESISTANCE 3 UNITS SC (18:14)
[2025-04-26 18:40] LABS: Blood Urea Nitrogen 12 mg/dl (7-17); Calcium 7.5 mg/dl (8.4-10.2); Carbon Dioxide 29 mmol/L (22-30); Chloride 102 mmol/L (98-107); Estimated Creatinine Clearance 54 ml/min; Glucose 174 mg/dl (70-99); Potassium 3.6 mmol/L (3.5-5.1); Sodium 134 mmol/L (135-145); eGFR > 60.00
[2025-04-26] MEDS: KCL 270 MEQ IV (20:24)
[2025-04-26] MEDS: SENOKOT-S PO (20:26)
[2025-04-26 21:19] LABS: Glucose - Point of Care 160 mg/dl (70-99)
[2025-04-26] MEDS: DILAUDID 0.5 MG IV (21:27)
[2025-04-26] MEDS: ATIVAN 0.5 MG PO (22:53)
[2025-04-26 23:00] VITALS: BP 119/82
[2025-04-27] MEDS: TYLENOL 650 MG PO (00:37)
[2025-04-27 04:12] LABS: Hematocrit 28.0 % (37.0-47.0); Hemoglobin 9.5 g/dL (12.0-16.0); Mean Corp Hgb Conc. 33.9 g/dL (33.0-37.0); Mean Corpuscular Volume 89.2 fL (81.0-99.0); Nucleated Red Blood Cells % 0.4 %; Platelet Count 371 10^3/uL (130-400); Red Cell Dist. Width 13.5 % (11.5-14.5)
[2025-04-27 04:34] LABS: Blood Urea Nitrogen 10 mg/dl (7-17); Calcium 7.4 mg/dl (8.4-10.2); Carbon Dioxide 28 mmol/L (22-30); Chloride 105 mmol/L (98-107); Estimated Creatinine Clearance 54 ml/min; Glucose 108 mg/dl (70-99); Potassium 3.8 mmol/L (3.5-5.1); Sodium 137 mmol/L (135-145); eGFR > 60.00
[2025-04-27] MEDS: MERREM 500 MG IV (05:15)
[2025-04-27] MEDS: STERILE WATER FOR INJECTION 10 ML IV ×2 (05:16→08:18)
[2025-04-27 05:19] LABS: Procalcitonin 4.78 ng/ml (0.0-0.25)
[2025-04-27 06:00] VITALS: BMI 19.7
[2025-04-27 07:00] VITALS: BP 128/81
[2025-04-27] MEDS: DECADRON 4 MG PO (07:32)
[2025-04-27] MEDS: SENOKOT-S PO ×2 (07:32→20:33)
[2025-04-27] MEDS: HEPARIN 5000 UNITS SC ×3 (07:32→23:07)
--- NOTE | 2025-04-27 07:49 | PHA.VAN.FU ---
Vancomycin Assessment / Plan
- Assessment
Renal Function: Stable
WBC's are: WNL
In the past 24 hrs, patient has been: Afebrile
Concomitant Antimicrobials: meropenem
- Assessment - Therapeutic Drug Monitoring
Random Level: 12.2
- Dosing Plan
Dosing by Level: Re-dose today (vancomycin 1000 mg x 1. Patient appears to be clearing higher than population PK predicts)
- Monitoring Plan
Random Level: 8.11 @0600
- Follow Up
Pharmacy will continue to follow.
Vancomycin Follow UP
- -
Patient Age: 65
Patient Sex: Female
Vancomycin Day #: 5
Indication: Genito-Urinary Tract
Requesting Provider: Dr. Fay
Pertinent Antimicrobial Allergies:
bacitracin/polymyxin B - corneal ulcerations
Height / Weight:
Height 4 ft 11 in
Actual Weight 44.225 kg
IBW in k.5
Pertinent Past Medical History: BMI ~18.8, Bronchiectasis
- Vital Signs / Lab Results
Temp Pulse Resp BP Pulse Ox
97.6 F 94 18 119/82 98
04/26/25 23:00 04/26/25 23:00 04/26/25 23:00 04/26/25 23:00 04/26/25 23:00
Lab Results - Hematology
04/25/25 04/26/25 04/27/25
03:45 05:19 03:52
WBC 15.2 H 11.4 H 8.0
Lab Results - Chemistry
04/25/25 04/25/25 04/25/25
03:45 10:00 13:54
BUN 19 H Cancelled 19 H
Creatinine 0.7 Cancelled 0.8
Estimated Creat Clear 54 Cancelled 47
Albumin 2.5 L
04/26/25 04/26/25 04/27/25
05:19 18:00 03:52
BUN 17 12 10
Creatinine 0.8 0.7 0.7
Estimated Creat Clear 47 54 54
Albumin 2.7 L
Microbiology Results
04/23/25 18:27 Blood Culture - Preliminary
Blood/Venous No Growth in 72 hours- Final report to follow
04/23/25 16:59 Blood Culture - Preliminary
Blood/Venous No Growth in 72 hours- Final report to follow
04/22/25 11:24 Blood Culture - Preliminary
Blood/Venous No Growth in 4 days- Final report to follow
04/22/25 10:53 Blood Culture - Preliminary
Blood/Venous No Growth in 4 days- Final report to follow
04/22/25 13:00 Urine Culture - Final
Urine
Therapeutic Drug Monitoring
Random Vancomycin 12.2 ug/ml 04/27/25 03:52
--- NOTE | 2025-04-27 08:00 | PTCARENOTE ---
FMS removed at 0755.
[2025-04-27] MEDS: ZOFRAN 4 MG IV ×2 (08:03→17:04)
[2025-04-27] MEDS: VANCOCIN 200 IV (08:03)
[2025-04-27] MEDS: DILAUDID 0.5 MG IV ×2 (08:06→17:04)
[2025-04-27 08:10] LABS: Glucose - Point of Care 103 mg/dl (70-99)
[2025-04-27] MEDS: NOVOLOG FLEXPEN-MODERATE RESISTANCE SC (08:10)
[2025-04-27] MEDS: ROCEPHIN 1000 MG IV (08:18)
--- NOTE | 2025-04-27 10:59 | W.PN.HOSP.TC ---
Today's Communication/Plan
-
monitor off IVF, switch Abx
Pt/OT
Discussed with son
Assessment / Plan
Assessment / Plan
65yo F with PMHx of iatrogenic adrenal insufficiency, chronic pain, vulvar melanoma s/p RT and resection, managed by Dr.Melanie Vasquez in [facility] on Opdualag with most recent injection done few weeks ago came with worsening weakness,
mucoid diarrhea, later switched to watery and lower abdominal pain. CT showed long segment wall thickening and mucosal hyperenhancement involving the mid sigmoid colon to the rectum consistent with proctocolitis. Patient also developed fevers and
hypotension on 04/23/25 with that increased steroids to stress level doses, increased hydration
A/P:
#Proctocolitis with watery diarrhea - overflow diarrhea?
#Moderate/severe constipation
#Ileus, concern for developing SBO
most likely opioid-induced constipation - attempt Relistor
FMS: brown liquid stool - removed on 04/27/25
while no nausea/vomiting - avoid NG tube
C.diff neg
Stool Cx NTD
Multiple WBC in stool
GI consult: Cannot exclude immunotherapy-induced colitis - was on high dose steroids,switched to home dose by Oncology on 04/26/25
GI has no concern for ischemic colitis with no significant mesenteric vessel obstruction on CT reading
#Acute hypoxic insufficiency
2/2 volume overload with hydration
Lasix on 04/25/25
#Fever, possible UTI
#Septic shock with bandemia
Pressor support, wean as tolerated
2/2 colitis vs other
with immunosuppression
Bcx NTD, repeated also pending
XR with RML concern for infection
Ucx - initially concern for Enterococcus however later reported as multiple organisms - Started Vanco/Merrem on 04/23/25 due to shock, pplan to switch to pneumonia coverage on 04/27/25 - Ceftriaxone/Vanco until MRSA PCR result
#JACLYN
resolved
Follow I&O, bladder scan (Maravilla could not be placed by RN due to inability to pass the catheter, patient with Hx of abdominal Sx)
#DM with hypoglycemia (2/2 poor oral intake on admission) and hyperglycemia 2/2 steroids
most likely hypoglycemia 2/2 poor oral intake with abdominal pain
cont Accuchecks, insulin SS, DM diet when able to eat
Hold oral hypoglycemics
#Vulvar melanoma with mets to lungs
#Chemotherapy-induced Adrenal insufficiency
S/P RT and surgical resection
discussed with : patient with poor prognosis
Oncology consult: hold Nilotinib, cont steroids
#HLD
#Chronic pain with opioid dependency
cont home meds
#Anemia, unspecified
2/2 CA and acute disease
watch for GI bleed - colitis will cause FOBT pos stool, so no clinical value in check, however colors are brown in FMS
Exacerbated by aggressive hydration
restart hep ppx closely watching hgb
#Malnutrition with cachexia
2/2 CA, patient reported poor appetite and weight loss
when appropriate - use Ensure
#Acute hypoxic insufficiency
#Bronchiectasis with RML partial collapse, can be infectious
Sputum Cx
Pulm consult: stable bronchiectasis, known, use mucus clearing devices as needed
acapella
#endometrial thickening measuring approximately 1.2 cm
eventual TV US, most likely outpatient
#Mild compression deformity of the L4 vertebral body
chronic
#Hypokalemia
#Hypocalcemia
replete and follow
#Elevated Alk.phos
CT ABD: Bile Ducts: Within normal limits. Gallbladder: Within normal limits. - therefore most likely 2/2 cancer
DVT ppx hep
Full code
I have spent at least 52min spent reviewing chart, test results, communication with consultants and providing direct patient care
Anticipated Discharge: 24 - 48 hours
Subjective/Interval History
-
Date of Service: April 27, 2025
Objective Data
-
Labs:
Laboratory Results
04/27/25
03:52
WBC 8.0
Hgb 9.5 L
Hct 28.0 L
Plt Count 371
Sodium 137
Potassium 3.8
Chloride 105
Carbon Dioxide 28
BUN 10
Creatinine 0.7
Glucose 108 H
Calcium 7.4 L
Vital Signs:
Vital Signs
Temp Pulse Resp BP Pulse Ox
97.8 F 92 17 128/81 92
04/27/25 07:00 04/27/25 07:00 04/27/25 07:00 04/27/25 07:00 04/27/25 07:00
I&O
04/26/25 04/27/25 04/28/25
06:59 06:59 06:59
Intake Total 530 / 530 3960 / 3960
Output Total 800 / 800 750 / 750
Balance -270 / -270 3210 / 3210
Review of Systems
-
History Source: Patient
All other systems: Reviewed and negative
Physical Exam
-
General: No Apparent Distress
HEENT: Normocephalic
Respiratory: Clear to Auscultation
Cardiac: Regular Rhythm
GI: Soft, Nontender and Nondistended
Musculoskeletal: No Clubbing, No Cyanosis and No Edema
Neuro: Awake
Psych: Calm
[2025-04-27 12:11] LABS: Glucose - Point of Care 212 mg/dl (70-99)
[2025-04-27] MEDS: NOVOLOG FLEXPEN-MODERATE RESISTANCE 3 UNITS SC (12:33)
[2025-04-27 12:44] VITALS: BP 137/86; PULSE 99; O2SAT 91
[2025-04-27 15:00] VITALS: BP 130/85
[2025-04-27] MEDS: FLAGYL 500 MG PO ×2 (16:26→23:07)
[2025-04-27] MEDS: PRAVACHOL 20 MG PO (17:04)
[2025-04-27 17:15] LABS: Glucose - Point of Care 179 mg/dl (70-99)
[2025-04-27] MEDS: NOVOLOG FLEXPEN-MODERATE RESISTANCE 1 UNITS SC (17:39)
[2025-04-27 21:40] LABS: Glucose - Point of Care 138 mg/dl (70-99)
[2025-04-27 23:00] VITALS: BP 133/79
[2025-04-27] MEDS: MELATONIN 5 MG PO (23:07)
[2025-04-27] MEDS: ATIVAN 0.5 MG PO (23:09)
[2025-04-28 04:42] LABS: Hematocrit 29.0 % (37.0-47.0); Hemoglobin 9.7 g/dL (12.0-16.0); Mean Corp Hgb Conc. 33.4 g/dL (33.0-37.0); Mean Corpuscular Volume 90.6 fL (81.0-99.0); Platelet Count 413 10^3/uL (130-400); Red Cell Dist. Width 13.5 % (11.5-14.5)
[2025-04-28 04:50] LABS: ALT (SGPT) 18 U/L (0-35); AST (SGOT) 27 U/L (14-36); Albumin 2.7 g/dl (3.5-5.0); Alkaline Phosphatase 202 U/L (38-126); Blood Urea Nitrogen 10 mg/dl (7-17); Calcium 7.8 mg/dl (8.4-10.2); Carbon Dioxide 30 mmol/L (22-30); Chloride 106 mmol/L (98-107); Estimated Creatinine Clearance 54 ml/min; Glucose 88 mg/dl (70-99); Magnesium 2.2 mg/dl (1.6-2.3); Potassium 3.5 mmol/L (3.5-5.1); Sodium 138 mmol/L (135-145); Total Protein 5.0 g/dl (6.3-8.2); eGFR > 60.00
[2025-04-28 06:56] LABS: Absolute Neutrophils -Man Diff 5.6 10^3/uL (1.4-6.5); Platelets Checked Yes
[2025-04-28 06:57] LABS: Normal RBC Morphology Yes; Total Cells Counted 100
--- NOTE | 2025-04-28 07:07 | W.PN.PUL3 ---
Today's Communication / Plan
-
Doing well now post diuresis, stable on RA
SOB improved, has been ambulating in her room, encouraged continued ambulation
Transition to PO abx per team
PT/OT assessments
Discharge planning
No further recs from our standpoint, we will sign off at this time, please call with questions
Assessment
-
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
hypotension and potential need for norepinephrine-pulmonary consulted for shortness of breath/bronchiectasis 04/23/2025.
Transferred to the critical care unit 04/23/2025 after developing shock.
Septic shock
Proctocolitis/diarrhea/hypotension
Possible UTI: Enterococcus in the urine
Immunosuppression: On immunotherapy for melanoma Opdualag
Ileus
Adrenal insufficiency from prior immunotherapy-takes hydrocortisone 15 mg daily
JACLYN
Leukocytosis
Bronchiectasis
Conditions present prior to admission:
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
Adrenal insufficiency
Diabetes.
Hyperlipidemia.
Breast cancer/bilateral mastectomy.
GERD.
Plan:
Developed septic shock 04/23/2025 with acute kidney injury requiring vasopressors-and transferred to the critical care unit
Clinically improved.
Vasopressors discontinued
Renal function normalized
Lactic acid has cleared
Fever curve improved
Leukocytosis persistent but improved.
-
Source of infection likely [id number] colitis: Possibly infectious/stercoral versus immunotherapy related
GI following. Narcotics have been discontinued-patient was on chronic fentanyl patch
Continue current antibiotics without change-hopefully can narrow down antibiotics in the next 24 hours.
Patient has significant stool burden-Bowel regimen will be started per GI.
Fecal management system in place.
Patient continues to have liquid diarrhea-? Overflow
Cultures negative but white blood cell count is elevated on stool
Enterococcus in the urine: Final identification pending
UA not highly suggestive of UTI but patient is immunosuppressed. Covered with antibiotics for now.
There is no evidence for pulmonary source of infection. Currently on room air
Patient has history of chronic bronchiectasis and saw Dr. Cook at [facility] in the past not on specific therapy-'Trelegy and albuterol as needed', not on vest therapy, etc. and was told to follow-up as needed
Respiratory status relatively stable
Radiographs summarized below
Supplemental oxygen as needed
Aspiration precautions
Mucolytic's as needed
Mucus clearing devices as needed
Consider decreasing IV corticosteroids in the next 24 hours if remains stable.
Upon moving the patient she felt short of breath. First time that she has been able to move as abdominal pain is better.
Became short of breath and also mildly hypoxic to 2 L
Stat chest x-ray performed and showed volume overload
IV fluids will be discontinued, IV Lasix will be started--can continue doses PRN as she felt response
Acute kidney injury: Likely prerenal. Improved after fluid resuscitation and vasopressor support.
Renal function normalized.
Continue IV hydration as the patient has poor p.o. intake and continues to have diarrhea. Monitor electrolytes daily
Potassium will be repleted-follow later per primary team
Intolerant to oral diet
-
Oncology evaluation ongoing-correspondence reviewed
History of adrenal insufficiency-hydrocortisone initiated
Holding immunotherapy for now
Follow hemoglobin and leukocytosis
Daily CBC
DVT prophylaxis-on subcu heparin
Nutrition-currently on a clear liquid diet.
Bowel regimen started
Early mobilization-physical therapy/Occupational Therapy, out of bed as able.
Hyperglycemia: Improved
D5 LR drip discontinued
Insulin sliding scale will continue
Dr. Gong reviewed case with primary team, oncology and nursing. 04/24/2025.
Dr. Gong updated son at the bedside 04/23/2025
Diagnostic data:
Chest x-ray 06/10/2021-small left pneumothorax
Chest x-ray 04/22/2025-large amount of asymmetrical opacification right upper lung field appears new from 2020
CT abdomen and pelvis 04/21/25-bronchiectasis with partial collapse right middle lobe endometrial thickening approximately 1.2 cm, dedicated pelvic ultrasound recommended, mild compression deformity L4, long segment wall thickening and mucosal
hyperenhancement involving the mid sigmoid colon and rectum consistent with proctocolitis
Total time spent on this consultation/encounter __50__ minutes which includes review of history, physical exam, medications, laboratory data, personal review of imaging, extensive review of outpatient records, discussion with care team and
respiratory therapy.
Subjective Data
-
Date of Service:
Date of Service: April 28, 2025
Chief Complaint: Pulmonary Follow Up
Subjective:
Doing well this AM, stable on RA
Able to ambulate in room without issues
Responded well to diuresis
Objective Data
Data Reviewed
Vital Signs / I&O / Oxygen:
Vital Signs
Temp Pulse Resp BP Pulse Ox
98.1 F 82 16 133/79 94
04/27/25 23:00 04/27/25 23:00 04/27/25 23:00 04/27/25 23:00 04/27/25 23:00
Intake and Output
04/27/25 04/28/25 04/29/25
06:59 06:59 06:59
Intake Total 3960 / 3960 960 / 960
Output Total 750 / 750
Balance 3210 / 3210 960 / 960
SaO2 94
Nasal Cannula flow liters per 2
minute
Physical Exam
General: Comfortable and Other (NAD)
HEENT: Normocephalic, Anicteric and Moist Mucous Membranes
Cardiovascular: S1-S2 and Regular Rhythm
Respiratory: Clear and Non-Labored Respirations
GI: Soft, Non Distended and Non Tender
Neurology: Awake, Alert, Oriented and No Motor Deficits
Skin: Warm, Dry and Good Color
Labs/Micro/Reports
Lab Data
04/28/25 04:16
04/28/25 04:16
Microbiology
04/23/25 18:27 Blood/Venous Blood Culture - Preliminary
No Growth in 4 days- Final report to follow
04/23/25 16:59 Blood/Venous Blood Culture - Preliminary
No Growth in 4 days- Final report to follow
04/26/25 13:20 Nose MRSA Screen - Final
No Methicillin Resistant Staphylococcus aureus isolated.
04/22/25 11:24 Blood/Venous Blood Culture - Final
No Growth - Final Report
04/22/25 10:53 Blood/Venous Blood Culture - Final
No Growth - Final Report
04/22/25 13:00 Urine Urine Culture - Final
[2025-04-28 07:10] VITALS: BP 117/69
[2025-04-28] MEDS: HEPARIN 5000 UNITS SC ×3 (07:43→23:13)
[2025-04-28] MEDS: FLAGYL 500 MG PO (07:43)
[2025-04-28] MEDS: SENOKOT-S PO ×3 (07:43→19:46)
[2025-04-28] MEDS: DECADRON 2 MG PO (07:43)
[2025-04-28] MEDS: ROCEPHIN 1000 MG IV (07:44)
[2025-04-28] MEDS: STERILE WATER FOR INJECTION 10 ML IV (07:44)
[2025-04-28 08:05] LABS: Glucose - Point of Care 90 mg/dl (70-99)
[2025-04-28] MEDS: NOVOLOG FLEXPEN-MODERATE RESISTANCE SC ×2 (08:07→17:20)
[2025-04-28] MEDS: KCL 270 MEQ IV (08:25)
--- NOTE | 2025-04-28 10:14 | W.PN.HOSP.TC ---
Today's Communication/Plan
-
borderline low potassium - replete
switch to augmentin and follow CBC in AM
Electrolytes in AM
Imodium
If improving - d/c in AM
Assessment / Plan
Assessment / Plan
65yo F with PMHx of iatrogenic adrenal insufficiency, chronic pain, vulvar melanoma s/p RT and resection, managed by Dr.Melanie Vasquez in [facility] on Opdualag with most recent injection done few weeks ago came with worsening weakness,
mucoid diarrhea, later switched to watery and lower abdominal pain. CT showed long segment wall thickening and mucosal hyperenhancement involving the mid sigmoid colon to the rectum consistent with proctocolitis. Patient also developed fevers and
hypotension on 04/23/25 with that increased steroids to stress level doses, increased hydration. Improved and steroids switched to home dose by oncology. Abd pain resolved, so colitis treatment completed totaling of 7 days. With persistent RUL opacity
on XR - continued on Augmentin for total of 14 day till 05/05/25.
A/P:
#Proctocolitis with watery diarrhea - overflow diarrhea?
#Moderate/severe constipation
#Ileus, concern for developing SBO
most likely opioid-induced constipation - attempt Relistor
FMS: brown liquid stool - removed on 04/27/25
while no nausea/vomiting - avoid NG tube
C.diff neg
Stool Cx NTD
Multiple WBC in stool
GI consult: Cannot exclude immunotherapy-induced colitis - was on high dose steroids,switched to home dose by Oncology on 04/26/25
GI has no concern for ischemic colitis with no significant mesenteric vessel obstruction on CT reading
As pain resolved and no proof of infection - start imodium on 04/28/25
#Acute hypoxic insufficiency
2/2 volume overload with hydration
Lasix on 04/25/25
#Fever, possible UTI
#Septic shock with bandemia
Pressor support, wean as tolerated
2/2 colitis vs other
with immunosuppression
Bcx NTD, repeated also pending
XR with RML concern for infection
Ucx - initially concern for Enterococcus however later reported as multiple organisms - Started Vanco/Merrem on 04/23/25 due to shock, pplan to switch to pneumonia coverage on 04/27/25 - Ceftriaxone/Vanco until MRSA PCR result
#JACLYN
resolved
Follow I&O, bladder scan (Maravilla could not be placed by RN due to inability to pass the catheter, patient with Hx of abdominal Sx)
#DM with hypoglycemia (2/2 poor oral intake on admission) and hyperglycemia 2/2 steroids
most likely hypoglycemia 2/2 poor oral intake with abdominal pain
cont Accuchecks, insulin SS, DM diet when able to eat
Hold oral hypoglycemics
#Vulvar melanoma with mets to lungs
#Chemotherapy-induced Adrenal insufficiency
S/P RT and surgical resection
discussed with : patient with poor prognosis
Oncology consult: hold Nilotinib, cont steroids
#HLD
#Chronic pain with opioid dependency
cont home meds
#Anemia, unspecified
2/2 CA and acute disease
watch for GI bleed - colitis will cause FOBT pos stool, so no clinical value in check, however colors are brown in FMS
Exacerbated by aggressive hydration
restart hep ppx closely watching hgb
#Malnutrition with cachexia
2/2 CA, patient reported poor appetite and weight loss
when appropriate - use Ensure
#Acute hypoxic insufficiency
#Bronchiectasis with RML partial collapse, can be infectious
Sputum Cx
Pulm consult: stable bronchiectasis, known, use mucus clearing devices as needed
acapella
#endometrial thickening measuring approximately 1.2 cm
eventual TV US, most likely outpatient
#Mild compression deformity of the L4 vertebral body
chronic
#Hypokalemia
#Hypocalcemia
replete and follow
#Elevated Alk.phos
CT ABD: Bile Ducts: Within normal limits. Gallbladder: Within normal limits. - therefore most likely 2/2 cancer
DVT ppx hep
Full code
I have spent at least 51min spent reviewing chart, test results, communication with consultants and providing direct patient care
Anticipated Discharge: Within 24 hours
Subjective/Interval History
-
Date of Service: April 28, 2025
Objective Data
-
Labs:
Laboratory Results
04/28/25
04:16
WBC 8.3
Hgb 9.7 L
Hct 29.0 L
Plt Count 413 H
Sodium 138
Potassium 3.5
Chloride 106
Carbon Dioxide 30
BUN 10
Creatinine 0.7
Glucose 88
Calcium 7.8 L
Total Bilirubin 0.7
AST 27
ALT 18
Alkaline Phosphatase 202 H
Vital Signs:
Vital Signs
Temp Pulse Resp BP Pulse Ox
98.3 F 78 16 117/69 95
04/28/25 07:10 04/28/25 07:10 04/28/25 07:10 04/28/25 07:10 04/28/25 07:10
I&O
04/27/25 04/28/25 04/29/25
06:59 06:59 06:59
Intake Total 3960 / 3960 960 / 960
Output Total 750 / 750
Balance 3210 / 3210 960 / 960
Review of Systems
-
History Source: Patient
All other systems: Reviewed and negative
Abdomen/GI: Reports Diarrhea
Physical Exam
-
General: No Apparent Distress
HEENT: Normocephalic
Respiratory: Crackles
Cardiac: Regular Rhythm
GI: Soft, Nontender and Nondistended
Musculoskeletal: No Clubbing, No Cyanosis and No Edema
Neuro: Awake, Alert, Oriented and AO x 3
Psych: Calm
[2025-04-28] MEDS: ZOFRAN 4 MG IV ×2 (10:51→18:55)
--- NOTE | 2025-04-28 11:06 | PTCARENOTE ---
pt aaox3. states no pain. states loose stool has increased again this morning. asking about her antibiotics to be changed to pills. also for an Imodium. made aware.
[2025-04-28] MEDS: AUGMENTIN 875 MG/125 MG 1 TABLET PO (11:07)
--- NOTE | 2025-04-28 12:07 | W.PN.ONC ---
Documented by User: Kezia Mathew MD, Resident 04/28/25 14:58
Today's Communication / Plan
-
Plan reviewed with attending.
Impression
Impression
vulvar melanoma, KIT-mutated, and metastatic, on nilotinib (oral TKI) and Opdualag (immunotherapy, s/p 3 cycles)
non-bloody diarrhea -proctocolitis - thought overflow diarrhea from constipation, less likely immune-mediated diarrhea
leukocytosis shock +/- steroids
Enterococcus UTI
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
JACLYN -resolved
hypotension -resolved
fever -resolved
Plan
Plan
Was on hydrocortisone 50mg Q8 which is equivalent to 37.5mg prednisone (approximately 1mg/kg/day prednisone), switched to Dexamethasone 6mg qam (~40mg pred/d). With suspicion for immune mediated colitis much less now, will wean steroids back to home
dose of hydrocortisone 15mg/d over the next couple days.
ie, Dex 4mg on Monday, 2mg on Monday, Hydrocortisone to resume Monday - orders updated
Bowel mgmt per primary team - rectal tube removed
follow cultures -on IV abx per primary team
Continue to hold opdualag (nivolumab/relatlimab), nilotinib until outpatient follow up with Dr. Vasquez for next steps in metastatic melanoma management
Subjective/Objective
Subjective/Objective
Pt reports continued diarrhea since rectal tube was removed but resolved proctocolitis pain from earlier in admission. She states the stool is pudding consistency with continued urgency and associated cramping. Denies profuse or watery diarrhea. She
reports resolved dyspnea and SOB upon eating. Pt is back to baseline diet which is minimal but continues hydrating appropriately.
Vital Signs:
Vital Signs
Temp Pulse Resp BP Pulse Ox
98.3 F 78 16 117/69 95
04/28/25 07:10 04/28/25 07:10 04/28/25 07:10 04/28/25 07:10 04/28/25 07:10
Lab Results:
Laboratory Data
WBC 8.3 10^3/uL (4.8-10.8) 04/28/25 04:16
Hgb 9.7 g/dL (12.0-16.0) L 04/28/25 04:16
Plt Count 413 10^3/uL (130-400) H 04/28/25 04:16
PT 16.9 Sec (11.4-14.6) H 04/23/25 13:03
INR 1.32 04/23/25 13:03
APTT 42.0 Sec (23.4-35.0) H 04/23/25 13:03
eGFR > 60.00 04/28/25 04:16

Documented by User: TARUN Noel 04/28/25 15:33
Plan
Plan
Was on hydrocortisone 50mg Q8 which is equivalent to 37.5mg prednisone (approximately 1mg/kg/day prednisone), switched to Dexamethasone 6mg qam (~40mg pred/d). With suspicion for immune mediated colitis much less now, will wean steroids back to home
dose of hydrocortisone 15mg/d over the next couple days.
ie, Dex 4mg on Monday, 2mg on Monday, Hydrocortisone to resume Monday - orders updated
Bowel mgmt per primary team - rectal tube removed
follow cultures -on IV abx per primary team
Continue to hold opdualag (nivolumab/relatlimab), nilotinib until outpatient follow up with Dr. Vasquez for next steps in metastatic melanoma management
Pt seen and examined with resident. Stool output increased and has changed consistency to 'pudding.' She has been pushing oral fluid intake to keep up hydration with stool losses. Otherwise, she is feeling well with no other new complaints.
[2025-04-28 12:23] LABS: Glucose - Point of Care 222 mg/dl (70-99)
[2025-04-28] MEDS: NOVOLOG FLEXPEN-MODERATE RESISTANCE 3 UNITS SC (12:35)
[2025-04-28] MEDS: IMODIUM 2 MG PO (13:58)
--- NOTE | 2025-04-28 15:27 | CM ---
Spoke with pt in room.
Reviewed PT eval indicating VN .
Pt requested [facility] VN
Referral placed in care port.
She said her son Cale will drive her home at ok.
IMM reviewed signed on chart.
PLAN Home with Julio C RANGEL
[2025-04-28 15:30] VITALS: BP 132/82
[2025-04-28 17:21] LABS: Glucose - Point of Care 139 mg/dl (70-99)
[2025-04-28] MEDS: PRAVACHOL 20 MG PO (17:23)
[2025-04-28] MEDS: DILAUDID 0.5 MG IV (19:43)
[2025-04-28] MEDS: AUGMENTIN 875 MG/125 MG PO ×2 (19:46→19:52)
[2025-04-28] MEDS: ATIVAN 0.5 MG PO (22:57)
[2025-04-28 23:00] VITALS: BP 126/76
[2025-04-29] MEDS: IMODIUM 2 MG PO (05:44)
[2025-04-29 05:48] VITALS: BMI 18.9
[2025-04-29 07:08] LABS: ALT (SGPT) 19 U/L (0-35); AST (SGOT) 30 U/L (14-36); Albumin 2.9 g/dl (3.5-5.0); Alkaline Phosphatase 215 U/L (38-126); Blood Urea Nitrogen 8 mg/dl (7-17); Calcium 7.5 mg/dl (8.4-10.2); Carbon Dioxide 30 mmol/L (22-30); Chloride 104 mmol/L (98-107); Estimated Creatinine Clearance 62 ml/min; Glucose 100 mg/dl (70-99); Magnesium 1.9 mg/dl (1.6-2.3); Potassium 3.6 mmol/L (3.5-5.1); Sodium 136 mmol/L (135-145); Total Protein 5.1 g/dl (6.3-8.2); eGFR > 60.00
[2025-04-29 07:15] LABS: Hematocrit 31.2 % (37.0-47.0); Hemoglobin 10.3 g/dL (12.0-16.0); Mean Corp Hgb Conc. 33.0 g/dL (33.0-37.0); Mean Corpuscular Volume 91.5 fL (81.0-99.0); Platelet Count 482 10^3/uL (130-400); Red Cell Dist. Width 13.6 % (11.5-14.5)
[2025-04-29 07:30] VITALS: BP 147/88
[2025-04-29 08:04] LABS: Absolute Neutrophils -Man Diff 5.1 10^3/uL (1.4-6.5); Platelets Checked Yes
[2025-04-29 08:05] LABS: Anisocytosis 1+; Hypochromasia 1+; Normal RBC Morphology No; Polychromasia 1+; Total Cells Counted 100
[2025-04-29 08:24] LABS: Glucose - Point of Care 109 mg/dl (70-99)
[2025-04-29] MEDS: NOVOLOG FLEXPEN-MODERATE RESISTANCE SC (08:44)
[2025-04-29] MEDS: CORTEF 15 MG PO (08:51)
[2025-04-29] MEDS: AUGMENTIN 875 MG/125 MG PO (08:51)
[2025-04-29] MEDS: SENOKOT-S PO ×2 (08:52→21:13)
[2025-04-29] MEDS: HEPARIN 5000 UNITS SC ×2 (08:53→16:06)
--- NOTE | 2025-04-29 10:48 | W.PN.HOSP.TC ---
Today's Communication/Plan
-
recurrent bandemia, but patient feeling better - get ID consult
Assessment / Plan
Assessment / Plan
65yo F with PMHx of iatrogenic adrenal insufficiency, chronic pain, vulvar melanoma s/p RT and resection, managed by Dr.Melanie Vasquez in [facility] on Opdualag with most recent injection done few weeks ago came with worsening weakness,
mucoid diarrhea, later switched to watery and lower abdominal pain. CT showed long segment wall thickening and mucosal hyperenhancement involving the mid sigmoid colon to the rectum consistent with proctocolitis. Patient also developed fevers and
hypotension on 04/23/25 with that increased steroids to stress level doses, increased hydration. Improved and steroids switched to home dose by oncology. Abd pain resolved, so colitis treatment completed totaling of 7 days. With persistent RUL opacity
on XR - continued on Augmentin for total of 14 day till 05/05/25.
A/P:
#Proctocolitis with watery diarrhea - overflow diarrhea?
#Moderate/severe constipation
#Ileus, concern for developing SBO
most likely opioid-induced constipation - attempt Relistor
FMS: brown liquid stool - removed on 04/27/25
while no nausea/vomiting - avoid NG tube
C.diff neg
Stool Cx NTD
Multiple WBC in stool
GI consult: Cannot exclude immunotherapy-induced colitis - was on high dose steroids,switched to home dose by Oncology on 04/26/25
GI has no concern for ischemic colitis with no significant mesenteric vessel obstruction on CT reading
As pain resolved and no proof of infection - start imodium on 04/28/25
#Acute hypoxic insufficiency
2/2 volume overload with hydration
Lasix on 04/25/25
#Fever, possible UTI
#Septic shock with bandemia
Pressor support, wean as tolerated
2/2 colitis vs other
with immunosuppression
Bcx NTD, repeated also pending
XR with RML concern for infection
Ucx - initially concern for Enterococcus however later reported as multiple organisms - Started Vanco/Merrem on 04/23/25 due to shock, pplan to switch to pneumonia coverage on 04/27/25 - Ceftriaxone/Vanco until MRSA PCR result
#JACLYN
resolved
Follow I&O, bladder scan (Maravilla could not be placed by RN due to inability to pass the catheter, patient with Hx of abdominal Sx)
#DM with hypoglycemia (2/2 poor oral intake on admission) and hyperglycemia 2/2 steroids
most likely hypoglycemia 2/2 poor oral intake with abdominal pain
cont Accuchecks, insulin SS, DM diet when able to eat
Hold oral hypoglycemics
#Vulvar melanoma with mets to lungs
#Chemotherapy-induced Adrenal insufficiency
S/P RT and surgical resection
discussed with : patient with poor prognosis
Oncology consult: hold Nilotinib, cont steroids
#HLD
#Chronic pain with opioid dependency
cont home meds
#Anemia, unspecified
2/2 CA and acute disease
watch for GI bleed - colitis will cause FOBT pos stool, so no clinical value in check, however colors are brown in FMS
Exacerbated by aggressive hydration
restart hep ppx closely watching hgb
#Malnutrition with cachexia
2/2 CA, patient reported poor appetite and weight loss
when appropriate - use Ensure
#Acute hypoxic insufficiency
#Bronchiectasis with RML partial collapse, can be infectious
Sputum Cx
Pulm consult: stable bronchiectasis, known, use mucus clearing devices as needed
acapella
#endometrial thickening measuring approximately 1.2 cm
eventual TV US, most likely outpatient
#Mild compression deformity of the L4 vertebral body
chronic
#Hypokalemia
#Hypocalcemia
replete and follow
#Elevated Alk.phos
CT ABD: Bile Ducts: Within normal limits. Gallbladder: Within normal limits. - therefore most likely 2/2 cancer
DVT ppx hep
Full code
I have spent at least 36min spent reviewing chart, test results, communication with consultants and providing direct patient care
Anticipated Discharge: Within 24 hours
Subjective/Interval History
-
Date of Service: April 29, 2025
Objective Data
-
Labs:
Laboratory Results
04/29/25
06:28
WBC 10.5
Hgb 10.3 L
Hct 31.2 L
Plt Count 482 H
Sodium 136
Potassium 3.6
Chloride 104
Carbon Dioxide 30
BUN 8
Creatinine 0.6
Glucose 100 H
Calcium 7.5 L
Total Bilirubin 0.5
AST 30
ALT 19
Alkaline Phosphatase 215 H
Vital Signs:
Vital Signs
Temp Pulse Resp BP Pulse Ox
98.2 F 86 16 147/88 97
04/29/25 07:30 04/29/25 07:30 04/29/25 07:30 04/29/25 07:30 04/29/25 07:30
I&O
04/28/25 04/29/25 04/30/25
06:59 06:59 06:59
Intake Total 960 / 960 480 / 480 480 / 480
Balance 960 / 960 480 / 480 480 / 480
Review of Systems
-
History Source: Patient
All other systems: Reviewed and negative
Physical Exam
-
General: No Apparent Distress
Neuro: Awake, Alert, Oriented and AO x 3
Psych: Calm
[2025-04-29 11:55] LABS: Glucose - Point of Care 160 mg/dl (70-99)
--- NOTE | 2025-04-29 12:05 | W.PN.ONC ---
Documented by User: Kezia Mathew MD, Resident 04/29/25 12:08
Today's Communication / Plan
-
Plan reviewed with attending.
Impression
Impression
vulvar melanoma, KIT-mutated, and metastatic, on nilotinib (oral TKI) and Opdualag (immunotherapy, s/p 3 cycles)
non-bloody diarrhea -proctocolitis
leukocytosis shock +/- steroids
Enterococcus UTI
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
JACLYN -resolved
hypotension -resolved
fever -resolved
Plan
Plan
Was on hydrocortisone 50mg Q8 which is equivalent to 37.5mg prednisone (approximately 1mg/kg/day prednisone), switched to Dexamethasone 6mg qam (~40mg pred/d). With suspicion for immune mediated colitis much less now, will wean steroids back to home
dose of hydrocortisone 15mg/d over the next couple days.
ie, Dex 4mg on Monday, 2mg on Monday, home dose Hydrocortisone to resume today - orders updated
Bowel mgmt per primary team - rectal tube removed
follow cultures -on abx per primary team. Switched to PO yesterday
Continue to hold opdualag (nivolumab/relatlimab), nilotinib until outpatient follow up with Dr. Vasquez for next steps in metastatic melanoma management
Stool output decreased and continues to be consistency to 'pudding.' She has been pushing oral fluid intake to keep up hydration with stool losses. Otherwise, she is feeling well with no other new complaints.
Subjective/Objective
Subjective/Objective
Vital Signs:
Vital Signs
Temp Pulse Resp BP Pulse Ox
98.2 F 86 16 147/88 97
04/29/25 07:30 04/29/25 07:30 04/29/25 07:30 04/29/25 07:30 04/29/25 07:30
Lab Results:
Laboratory Data
WBC 10.5 10^3/uL (4.8-10.8) 04/29/25 06:28
Hgb 10.3 g/dL (12.0-16.0) L 04/29/25 06:28
Plt Count 482 10^3/uL (130-400) H 04/29/25 06:28
PT 16.9 Sec (11.4-14.6) H 04/23/25 13:03
INR 1.32 04/23/25 13:03
APTT 42.0 Sec (23.4-35.0) H 04/23/25 13:03
eGFR > 60.00 04/29/25 06:28
Orders
Orders
Orders From Last 24 Hours
04/28/25 16:52
C DIFF [C difficile Antigen & Toxins] Routine

Documented by User: TARUN Noel 04/29/25 13:40
Plan
Plan
Was on hydrocortisone 50mg Q8 which is equivalent to 37.5mg prednisone (approximately 1mg/kg/day prednisone), switched to Dexamethasone 6mg qam (~40mg pred/d). With suspicion for immune mediated colitis much less now, pt steroids weaned back to home
dose of hydrocortisone 15mg/d over the next couple days.
Bowel mgmt per primary team - rectal tube removed
follow cultures -on abx per primary team. Switched to PO yesterday
Continue to hold opdualag (nivolumab/relatlimab), nilotinib until outpatient follow up with Dr. Vasquez for next steps in metastatic melanoma management
Pt seen and examined -C.diff negative, continues with loose stools though less frequent. No further abdominal pain. Ambulating. Bowel regimen as recommended by GI. TARUN Licona
[2025-04-29] MEDS: NOVOLOG FLEXPEN-MODERATE RESISTANCE 1 UNITS SC ×2 (13:25→18:43)
--- NOTE | 2025-04-29 13:49 | W.DCSUMMARY ---
Documented by User: Robert Fay MD 05/05/25 06:58
Discharge Summary
Discharge Data
Date of Admission: 04/21/25
Date of Discharge: 05/05/25
-
Pending Results: No
Hospital Course
65yo F with PMHx of iatrogenic adrenal insufficiency, chronic pain, vulvar melanoma s/p RT and resection, managed by Dr.Melanie Vasquez in [facility] on Opdualag with most recent injection done few weeks ago came with worsening weakness,
mucoid diarrhea, later switched to watery and lower abdominal pain. CT showed long segment wall thickening and mucosal hyperenhancement involving the mid sigmoid colon to the rectum consistent with proctocolitis. Patient also developed fevers and
hypotension on 04/23/25 with that increased steroids to stress level doses, increased hydration. Improved and steroids switched to home dose by oncology. Abd pain resolved, so colitis treatment completed totaling of 7 days. ID recommendations provided
- abx stopped. Medically stable for d/c home. Repaglinide stopped 2/2 episodes of hypoglycemia and poor oral intake. Oncology advised to hold nilotinib and follow with upon d/c. Medically stable for d/c.
I have spent at least 36min spent reviewing chart, test results, communication with consultants and providing direct patient care
Patient was managed for:
#Proctocolitis with watery diarrhea - overflow diarrhea?
#Moderate/severe constipation
#Ileus, concern for developing SBO
#Acute hypoxic insufficiency
#Fever, possible UTI
#Septic shock with bandemia
#JACLYN
#DM with hypoglycemia (2/2 poor oral intake on admission) and hyperglycemia 2/2 steroids
#Vulvar melanoma with mets to lungs
#Chemotherapy-induced Adrenal insufficiency
#HLD
#Chronic pain with opioid dependency
#Anemia, unspecified
#Malnutrition with cachexia
#Acute hypoxic insufficiency
#Bronchiectasis with RML partial collapse, can be infectious
#endometrial thickening measuring approximately 1.2 cm
#Mild compression deformity of the L4 vertebral body
#Hypokalemia
#Hypocalcemia
#Elevated Alk.phos
Discharge Plan
-
Patient Disposition: Home (Routine Discharge)
Discharge Diagnosis/Procedures: colitis
Condition: Fair
Diet: Diabetic, Carb Controlled
Activity: As tolerated
Referrals:
Charlotte Vasquez MD [Non-Admitting Privileges, Oncology] - in less than 1 week
Marilin Espinosa CRNP [Family Provider, Family Practice]
Prescriptions:
New
loperamide 2 mg Capsule
2 mg PO Q4HPRN PRN (Reason: diarrhea) Qty: 30 0RF
Continued
lorazepam 0.5 MG tablet
0.5 mg PO HS
pravastatin 20 MG tablet
20 mg PO QPM
hydrocortisone 10 MG tablet
15 mg PO DAILY
acetaminophen [Tylenol Extra Strength] 500 MG tablet
1,000 mg PO Q6HPRN PRN (Reason: mild pain)
ondansetron HCl 8 mg Tablet
8 mg PO [id number] PRN (Reason: nausea)
methylphenidate HCl 5 mg Tablet
5 mg PO BID
hydromorphone 2 mg Tablet
4 mg PO Q8HPRN PRN (Reason: severe pain)
Held
nilotinib HCl 200 mg Capsule
200 mg PO BID
Hold Instructions: until told to restart by your doctor
Discontinued
repaglinide 0.5 mg Tablet
0.5 mg PO AC
fentanyl 25 mcg/hr Patch 72 Hour
1 patch TRANSDERMAL Q72H
Discharge Orders:
Discharge Patient (As Directed); Ordered 04/30/25
Ordered By: Mahendra Joseph
Discharge Date and Time
Discharge Date/Time: 04/30/25 15:05
Print Language: DIVEHI

Documented by User: Mahendra Joseph MD 04/30/25 14:03
Discharge Summary
Discharge Data
Date of Admission: 04/21/25
Date of Discharge: 04/30/25
Discharge Plan
-
Patient Disposition: Home (Routine Discharge)
Discharge Diagnosis/Procedures: colitis
Condition: Fair
Diet: Diabetic, Carb Controlled
Activity: As tolerated
Referrals:
Charlotte Vasquez MD [Non-Admitting Privileges, Oncology] - in less than 1 week
Marilin Espinosa CRNP [Family Provider, Family Practice]
Prescriptions:
New
loperamide 2 mg Capsule
2 mg PO Q4HPRN PRN (Reason: diarrhea) Qty: 30 0RF
Continued
lorazepam 0.5 MG tablet
0.5 mg PO HS
pravastatin 20 MG tablet
20 mg PO QPM
hydrocortisone 10 MG tablet
15 mg PO DAILY
acetaminophen [Tylenol Extra Strength] 500 MG tablet
1,000 mg PO Q6HPRN PRN (Reason: mild pain)
ondansetron HCl 8 mg Tablet
8 mg PO [id number] PRN (Reason: nausea)
methylphenidate HCl 5 mg Tablet
5 mg PO BID
hydromorphone 2 mg Tablet
4 mg PO Q8HPRN PRN (Reason: severe pain)
Held
nilotinib HCl 200 mg Capsule
200 mg PO BID
Hold Instructions: until told to restart by your doctor
Discontinued
repaglinide 0.5 mg Tablet
0.5 mg PO AC
fentanyl 25 mcg/hr Patch 72 Hour
1 patch TRANSDERMAL Q72H
Discharge Orders:
Discharge Patient (As Directed); Ordered 04/30/25
Ordered By: Mahendra Joseph
Discharge Date and Time
Discharge Date/Time: 04/30/25 15:05
Print Language: DIVEHI
[2025-04-29] MEDS: KCL 40 MEQ PO (13:57)
[2025-04-29] MEDS: ZOFRAN 4 MG IV (14:00)
[2025-04-29 15:26] VITALS: BP 134/87; PULSE 99
[2025-04-29 16:00] VITALS: BP 138/94
[2025-04-29] MEDS: TYLENOL 650 MG PO (16:04)
[2025-04-29] MEDS: PRAVACHOL 20 MG PO (17:12)
[2025-04-29 18:08] LABS: Glucose - Point of Care 166 mg/dl (70-99)
[2025-04-29] MEDS: ATIVAN 0.5 MG PO (21:13)
[2025-04-29 23:50] VITALS: BP 119/71
[2025-04-30 00:10] LABS: Glucose - Point of Care 108 mg/dl (70-99)
[2025-04-30] MEDS: HEPARIN 5000 UNITS SC ×2 (00:32→08:31)
[2025-04-30 05:30] LABS: Hematocrit 31.1 % (37.0-47.0); Hemoglobin 10.3 g/dL (12.0-16.0); Mean Corp Hgb Conc. 33.1 g/dL (33.0-37.0); Mean Corpuscular Volume 92.0 fL (81.0-99.0); Platelet Count 523 10^3/uL (130-400); Red Cell Dist. Width 13.8 % (11.5-14.5)
[2025-04-30 05:39] LABS: Blood Urea Nitrogen 7 mg/dl (7-17); Calcium 8.2 mg/dl (8.4-10.2); Carbon Dioxide 29 mmol/L (22-30); Chloride 105 mmol/L (98-107); Estimated Creatinine Clearance 62 ml/min; Glucose 92 mg/dl (70-99); Magnesium 1.9 mg/dl (1.6-2.3); Potassium 3.6 mmol/L (3.5-5.1); Sodium 137 mmol/L (135-145); eGFR > 60.00
[2025-04-30 06:00] VITALS: BMI 18.3
[2025-04-30] MEDS: IMODIUM 2 MG PO ×2 (06:15→11:15)
[2025-04-30 06:37] LABS: Absolute Neutrophils -Man Diff 11.7 10^3/uL (1.4-6.5); Platelets Checked Yes
[2025-04-30 06:38] LABS: Anisocytosis Slight; Normal RBC Morphology No; Polychromasia Slight; Total Cells Counted 100
[2025-04-30 07:40] VITALS: BP 143/87
[2025-04-30 08:04] LABS: Glucose - Point of Care 113 mg/dl (70-99)
--- NOTE | 2025-04-30 08:22 | CON.ID ---
Consultation
-
Date/Time Consultation Requested: 04/29/2025 0821
Date/Time Consultation Performed: 04/29/2025 0810
Requesting Provider: Nya
Performing Provider: Ronnie
Reason for Consultation: Bandemia
Chief Complaint / Past History
History of Present Illness
Cande Chen is a 65-year-old female being evaluated at the request of Dr. Fay in regards to bandemia. History is obtained from chart review, along with patient interview.
The patient has a significant past medical history of vulvar melanoma, and is on
nilotinib (an oral TKI) and opdualag immunotherapy.
The patient initially presented to [facility] on 05/12 following approximately 2 to 2-1/2 weeks of persistent diarrhea and abdominal pain. The patient reported loose and watery stool with noted mucus, but no blood. Over the 2 weeks she
had noted poor oral intake, with practically no oral intake over the prior few days. No history of fevers or chills. Workup in the ER included CT imaging which showed proctocolitis, and the patient was admitted for further workup.
Her hospital course was significant for evaluation by the oncology service, along with the gastroenterology service. [facility] noted concern for possible immune mediated colitis, and the patient was placed on hydrocortisone.
The patient was initially on broad-spectrum antibiotics (meropenem and vancomycin). Blood cultures revealed no growth, and urine culture revealed Enterococcus. Patient was noted with a right upper lobe opacity on x-ray and the patient was slated
to receive a 14-day course of antibiotics, with a transition to Augmentin to complete course through 05/05/2025. Patient subsequently developed a bandemia, and Infectious Diseases is asked to comment upon further antimicrobial therapy.
At present, patient reports that diarrhea has improved and now stooling is like 'thick pudding'. She denies any abdominal pain. She reports rare and occasional dry cough. She denies any sputum production.
Past History
Additional Past Medical History:
DM type II
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
Hx breast CA
HLD
Additional Past Surgical History:
Bilateral mastectomy
Allergy History:
bacitracin (From Polysporin) Allergy (Verified 06/08/21 06:29)
Corneal Ulcerations
morphine Allergy (Verified 06/08/21 06:29)
Swelling, Redness @ IV site
polymyxin B Allergy (Verified 06/08/21 06:29)
Corneal Ulcerations
Medications Reviewed: Yes
Current Antibiotics:
Augmentin 875 mg PO BID
Social History
Tobacco: Non-Smoker
Alcohol: None
Personal:
Living: Alone
Employment: Retired
Family History
Family History: Not Pertinent
Review of Systems
Vital Signs
Temp Pulse Resp BP Pulse Ox
98.8 F 91 16 143/87 98
04/30/25 07:40 04/30/25 07:40 04/30/25 07:40 04/30/25 07:40 04/30/25 07:40
Physical Exam
Physical Exam
Constitutional: No Acute Distress, Comfortable and Non-toxic
Eyes: No Conjunctival Hemorrhage and Sclera Anicteric
Oral: No Thrush and No Ulcers
Cardiovascular: Regular Rate and S1/S2; Negative S3/S4
Pulmonary: Clear; Negative Wheezes, Rales or Rhonchi
Gastrointestinal: Soft, Non Tender, Distended, Normal Bowel Sounds, No Rebound and No Guarding
Genito-Urinary: Negative Maravilla
Extremities: Negative Edema, Cyanosis or Erythema
Skin: Warm and Dry; Negative Rash or Jaundice
Neurological: Awake and Alert
Psychological: Calm
Lab / Diagnostic Study Results
04/30/25 05:07
04/30/25 05:07
Abs Immat Gran (auto) 0.2 10^3/uL (0-0.05) H 04/27/25 03:52
Absolute Neuts (auto) 5.0 10^3/uL (1.4-6.5) 04/27/25 03:52
Absolute Lymphs (auto) 1.4 10^3/uL (1.2-3.4) 04/27/25 03:52
Absolute Monos (auto) 1.3 10^3/uL (0.1-0.6) H 04/27/25 03:52
Absolute Basos (auto) 0.0 10^3/uL (0-0.2) 04/27/25 03:52
Total Counted 100 04/30/25 05:07
Immature Gran % 2.6 % (0-0.5) H 04/27/25 03:52
Neutrophils % 62.6 % (42.2-75.2) 04/27/25 03:52
Lymphocytes % 17.3 % (20.5-51.1) L 04/27/25 03:52
Monocytes % 15.9 % (1.7-9.3) H 04/27/25 03:52
Eosinophils % 1.2 % (0-6) 04/27/25 03:52
Basophils % 0.4 % (0-2) 04/27/25 03:52
Abs Neuts (Manual) 11.7 10^3/uL (1.4-6.5) H 04/30/25 05:07
Segmented Neutrophils 75 % (42-75) 04/30/25 05:07
Band Neutrophils 4 % (0-3) H 04/30/25 05:07
Lymphocytes (Manual) 9 % (20-51) L 04/30/25 05:07
Eosinophils (Manual) 3 % (0-6) 04/30/25 05:07
PT 16.9 Sec (11.4-14.6) H 04/23/25 13:03
INR 1.32 04/23/25 13:03
Lactic Acid Cancelled 04/23/25 23:25
Procalcitonin 4.78 ng/ml (0.0-0.25) H* 04/27/25 03:52
Ur Squamous Epith Cells 16-20 /LPF (Few) 04/22/25 13:00
Microbiology Results
Micro:
04/23/25 18:27 Blood Culture - Final
Blood/Venous No Growth - Final Report
04/28/25 16:52 C. difficile GDH Antigen & Toxins - Final
Feces/Stool Negative for toxigenic C.difficile
04/23/25 16:59 Blood Culture - Final
Blood/Venous No Growth - Final Report
04/26/25 13:20 MRSA Screen - Final
Nose No Methicillin Resistant Staphylococcus aureus isolated.
04/22/25 11:24 Blood Culture - Final
Blood/Venous No Growth - Final Report
04/22/25 10:53 Blood Culture - Final
Blood/Venous No Growth - Final Report
04/22/25 13:00 Urine Culture - Final
Urine
04/21/25 17:12 Salmonella/Shigella Culture - Final
Feces/Stool No Salmonella, Shigella, Aeromonas or Plesiomonas species
isolated.
Campylobacter Culture - Final
No Campylobacter species isolated.
Shiga Toxin Test - Final
No E. coli Shiga Toxin 1 or 2 detected.
04/22/25 12:59 Stool Leukocytes - Final
Feces/Stool
04/22/25 12:59 Cryptosporidium/Giardia - Final
Feces/Stool Negative for Cryptosporidium and/or Giardia Lamblia
antigens.
04/21/25 17:12 C. difficile GDH Antigen & Toxins - Final
Feces/Stool Negative for toxigenic C.difficile
Imaging:
04/28/2025 CXR (reviewed): confluent heterogeneous airspace opacity in the right mid to upper lung zone demonstrated without significant interval change. Mild parenchymal opacity seen previously in the left lower lung has improved. Please see full
dictation for additional detail. Film personally viewed.
Assessment / Plan
Recent clinical sepsis.
- Cultures negative.
Pulmonary infiltrate with Hx lung metastasis
Leukocytosis; likely steroid related
Colitis; improved
DM type II
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
Hx breast CA
HLD
Recommendations:
At present, colitis is improved with the use of Imodium. Prior abdominal discomfort is resolved.
Patient relatively intolerant of Augmentin.
Suspect findings on chest x-ray are likely due to known mets. Doubt pneumonia given lack of symptomatology.
Discontinue further antibiotics and observe.
No objection to discharge from a Infectious Disease standpoint.
Care Review
Plan reviewed with: Physician (Hospitalist)
--- NOTE | 2025-04-30 08:25 | W.PN.HOSP.TC ---
Addendum entered and electronically signed by Mahendra Joseph MD 05/02/25 07:53:
The etiology of the proctocolitis immune mediated
Original Note:
Today's Communication/Plan
-
Discharge home today
Assessment / Plan
Assessment / Plan
Impression:
65yo F with PMHx of iatrogenic adrenal insufficiency, chronic pain, vulvar melanoma s/p RT and resection, managed by Dr.Melanie Vasquez in [facility] on Opdualag with most recent injection done few weeks ago came with worsening weakness,
mucoid diarrhea, later switched to watery and lower abdominal pain. CT showed long segment wall thickening and mucosal hyperenhancement involving the mid sigmoid colon to the rectum consistent with proctocolitis. Patient also developed fevers and
hypotension on 04/23/25 with that increased steroids to stress level doses, increased hydration. Improved and steroids switched to home dose by oncology. Abd pain resolved, so colitis treatment completed totaling of 7 days. With persistent RUL opacity
on XR - continued on Augmentin for total of 14 day till 05/05/25.
Assessment/plan:
#Proctocolitis with watery diarrhea - overflow diarrhea?
#Moderate/severe constipation
#Ileus, concern for developing SBO
most likely opioid-induced constipation - attempt Relistor
FMS: brown liquid stool - removed on 04/27/25
while no nausea/vomiting - avoid NG tube
C.diff neg
Stool Cx NTD
Multiple WBC in stool
GI consult: Cannot exclude immunotherapy-induced colitis - was on high dose steroids,switched to home dose by Oncology on 04/26/25
GI has no concern for ischemic colitis with no significant mesenteric vessel obstruction on CT reading
As pain resolved and no proof of infection - start imodium on 04/28/25
#Acute hypoxic insufficiency
2/2 volume overload with hydration
Lasix on 04/25/25
#Fever, possible UTI
#Septic shock with bandemia
Pressor support, wean as tolerated
2/2 colitis vs other
with immunosuppression
Bcx NTD, repeated also pending
XR with RML concern for infection
Ucx - initially concern for Enterococcus however later reported as multiple organisms - Started Vanco/Merrem on 04/23/25 due to shock, pplan to switch to pneumonia coverage on 04/27/25 - Ceftriaxone/Vanco until MRSA PCR result
04/30
Seen by infectious disease who recommended discharge off antibiotic
#JACLYN
resolved
Follow I&O, bladder scan (Maravilla could not be placed by RN due to inability to pass the catheter, patient with Hx of abdominal Sx)
#DM with hypoglycemia (2/2 poor oral intake on admission) and hyperglycemia 2/2 steroids
most likely hypoglycemia 2/2 poor oral intake with abdominal pain
cont Accuchecks, insulin SS, DM diet when able to eat
Hold oral hypoglycemics
#Vulvar melanoma with mets to lungs
#Chemotherapy-induced Adrenal insufficiency
S/P RT and surgical resection
discussed with : patient with poor prognosis
Oncology consult: hold Nilotinib, cont steroids
#HLD
#Chronic pain with opioid dependency
cont home meds
#Anemia, unspecified
2/2 CA and acute disease
watch for GI bleed - colitis will cause FOBT pos stool, so no clinical value in check, however colors are brown in FMS
Exacerbated by aggressive hydration
restart hep ppx closely watching hgb
#Malnutrition with cachexia
2/2 CA, patient reported poor appetite and weight loss
when appropriate - use Ensure
#Acute hypoxic insufficiency
#Bronchiectasis with RML partial collapse, can be infectious
Sputum Cx
Pulm consult: stable bronchiectasis, known, use mucus clearing devices as needed
acapella
#endometrial thickening measuring approximately 1.2 cm
eventual TV US, most likely outpatient
#Mild compression deformity of the L4 vertebral body
chronic
#Hypokalemia
#Hypocalcemia
replete and follow
#Elevated Alk.phos
CT ABD: Bile Ducts: Within normal limits. Gallbladder: Within normal limits. - therefore most likely 2/2 cancer
CODE STATUS: Full code
DVT prophylaxis: Heparin
Diet: Low residual diet
Disposition: Discharge home today.
Total time spent on today's encounter was 65 minutes which included time spent in counseling the patient/family regarding diagnosis and treatment plan as listed above, goals of care, and symptom management. Case was discussed with nursing staff,
specialists, and care coordinators/case management. All labs and imaging personally reviewed by me. Remainder the time spent in detailed review of previous records, lab data, imaging, and other medical provider documentation.
Anticipated Discharge: Today
Subjective/Interval History
-
Date of Service: April 30, 2025
Patient seen and examined at bedside, denies any chest pain or shortness of breath, no abdominal pain, no nausea, no vomiting, patient still have diarrhea, which improved with imodium.
Objective Data
-
Labs:
Laboratory Results
04/30/25
05:07
WBC 14.9 H
Hgb 10.3 L
Hct 31.1 L
Plt Count 523 H
Sodium 137
Potassium 3.6
Chloride 105
Carbon Dioxide 29
BUN 7
Creatinine 0.6
Glucose 92
Calcium 8.2 L
Vital Signs:
Vital Signs
Temp Pulse Resp BP Pulse Ox
98.8 F 91 16 143/87 98
04/30/25 07:40 04/30/25 07:40 04/30/25 07:40 04/30/25 07:40 04/30/25 07:40
I&O
04/29/25 04/30/25 05/01/25
06:59 06:59 06:59
Intake Total 480 / 480 1200 / 1200
Balance 480 / 480 1200 / 1200
Physical Exam
-
General: No Apparent Distress, Comfortable and Cachectic
HEENT: Normocephalic, Atraumatic, Moist Mucous Membranes, No Ptosis, PERRLA and Nose Appears Normal
Respiratory: Clear to Auscultation and Non Labored Respirations
Cardiac: Regular Rhythm and S1/S2
Breast: Deferred by me
GI: Soft, Nontender, Nondistended and Normal Bowel Sounds
Genito-urinary: No Costovertebral Tender
Musculoskeletal: No Clubbing, No Cyanosis and No Edema
Skin: Warm
Neuro: Awake, Alert, Oriented, AO x 3 and No Motor Deficits
Psych: Calm
Data Reviewed
-
Diagnostic Radiology: Image personally visualized and interpreted and Report Reviewed by me
CT Scan: Image personally visualized and interpreted and Report Reviewed by me
Ultrasound: Image personally visualized and interpreted and Report Reviewed by me
MRI: Image personally visualized and interpreted and Report Reviewed by me
Medical Tests (Nuc Med, Echo etc): Image personally visualized and interpreted and Report Reviewed by me
Labs: Labs Reviewed by me
Old Records: Reviewed
--- NOTE | 2025-04-30 08:26 | W.PN.ONC ---
Today's Communication / Plan
-
Plan reviewed with attending.
Impression
Impression
vulvar melanoma, KIT-mutated, and metastatic, on nilotinib (oral TKI) and Opdualag (immunotherapy, s/p 3 cycles)
non-bloody diarrhea -proctocolitis. Diarrhea frequency has decreased.
leukocytosis shock +/- steroids
Enterococcus UTI
adrenal insuff from prior immunotherapy, takes hydrocortisone 15mg daily [employer]ER
JACLYN -resolved
hypotension -resolved
fever -resolved
Plan
Plan
Was on hydrocortisone 50mg Q8 which is equivalent to 37.5mg prednisone (approximately 1mg/kg/day prednisone), switched to Dexamethasone 6mg qam (~40mg pred/d). With suspicion for immune mediated colitis much less now, pt steroids weaned back to home
dose of hydrocortisone 15mg/d.
Switched to PO abx with increase in diarrhea Monday. Pt refused further doses of augmentin yesterday with new leukocytosis suspected to be related. PO abx per primary team. Ambulating. Denies abdominal pain.
Continue to hold opdualag (nivolumab/relatlimab), nilotinib until outpatient follow up with Dr. Vasquez for next steps in metastatic melanoma management.
Subjective/Objective
Subjective/Objective
Ms. Chen reports increased appetite and fully resolved abdominopelvic pain. She states her diarrhea minimized yesterday with 2 bouts over night that prompted her to take loperamide. Pt is eager to go home and spend time with her children.
Vital Signs:
Vital Signs
Temp Pulse Resp BP Pulse Ox
98.8 F 91 16 143/87 98
04/30/25 07:40 04/30/25 07:40 04/30/25 07:40 04/30/25 07:40 04/30/25 07:40
Lab Results:
Laboratory Data
WBC 14.9 10^3/uL (4.8-10.8) H 04/30/25 05:07
Hgb 10.3 g/dL (12.0-16.0) L 04/30/25 05:07
Plt Count 523 10^3/uL (130-400) H 04/30/25 05:07
PT 16.9 Sec (11.4-14.6) H 04/23/25 13:03
INR 1.32 04/23/25 13:03
APTT 42.0 Sec (23.4-35.0) H 04/23/25 13:03
eGFR > 60.00 04/30/25 05:07
[2025-04-30] MEDS: NOVOLOG FLEXPEN-MODERATE RESISTANCE SC ×2 (08:29→12:57)
[2025-04-30] MEDS: SENOKOT-S PO (08:31)
[2025-04-30] MEDS: CORTEF 15 MG PO (08:31)
--- NOTE | 2025-04-30 11:07 | CM ---
MD entered order for discharge
Spoke with patient she said she was ready for discharge..
Pt requested [facility]
She said her son Julian will drive her home at or.
PLAN Home with [facility] fax [phone]
[2025-04-30] MEDS: TYLENOL 650 MG PO (11:38)
[2025-04-30 11:39] LABS: Glucose - Point of Care 143 mg/dl (70-99)
[2025-04-30 14:35] VITALS: BP 143/88
--- NOTE | 2025-05-01 11:16 | PN.CDI ---
CDI
- -
CDI:
Physician Documentation Request
Admit Date: 04/21/25 18:42
Dear Doctor Jake,
Patient presented to ED with persistent diarrhea and abdominal pain. Found to have proctocolitis.
GI notes state 'likely stercoral colitis in the setting of severe constipation and overflow diarrhea'
Oncology notes 'suspicion for immune mediated colitis'
After careful study, what is thought to be etiology of the proctocolitis
Stercoral
immune mediated
multifactorial - please specify
Other
Use of terms such as suspected, likely, concern for, or probable (associated with a specific diagnosis that is being evaluated, monitored, or treated as if it exists) are acceptable and can be coded in the inpatient setting, when documented at the
time of discharge.
Thank you,
Gita Alcaraz RN, BSN
CDI Specialist
tiger text
Please use your independent medical judgment in providing your response.
== END 2025-04-30 15:05 | disposition home health service (06) | DRG 393 ==
LOC: 3 WEST ACU 18:42
PROVIDERS: Internal Medicine; Internal Medicine Critical Care Medicine; Physician Assistant; Registered Nurse; ADMITTING PHYSICIAN Internal Medicine; ATTENDING PHYSICIAN General Practice; CONSULT PHYSICIAN Internal Medicine Critical Care Medicine; CONSULT PHYSICIAN Internal Medicine Gastroenterology; CONSULT PHYSICIAN Internal Medicine Hematology & Oncology; EMERGENCY PHYSICIAN Emergency Medicine; FAMILY PHYSICIAN Nurse Practitioner Primary Care; OTHER PHYSICIAN Internal Medicine Infectious Disease
PROC: 02HV33Z Insertion of Infusion Device into Superior Vena Cava, Percutaneous Approach (ICD-10-PCS; 2025-04-23)
DX: K52.1 Toxic gastroenteritis and colitis (principal); A41.9 Sepsis, unspecified organism; R65.21 Severe sepsis with septic shock; C78.02 Secondary malignant neoplasm of left lung; E27.3 Drug-induced adrenocortical insufficiency; E46 Unspecified protein-calorie malnutrition; R64 Cachexia; F11.20 Opioid dependence, uncomplicated; J98.19 Other pulmonary collapse; Z68.1 Body mass index [BMI] 19.9 or less, adult; K56.7 Ileus, unspecified; N17.9 Acute kidney failure, unspecified; N39.0 Urinary tract infection, site not specified; D84.821 Immunodeficiency due to drugs; C51.9 Malignant neoplasm of vulva, unspecified; E86.0 Dehydration; E87.6 Hypokalemia; E83.51 Hypocalcemia; E78.5 Hyperlipidemia, unspecified; E11.65 Type 2 diabetes mellitus with hyperglycemia; T45.1X5A Adverse effect of antineoplastic and immunosuppressive drugs, initial encounter; T38.0X5A Adverse effect of glucocorticoids and synthetic analogues, initial encounter; I70.0 Atherosclerosis of aorta; G89.29 Other chronic pain; D63.0 Anemia in neoplastic disease; J47.9 Bronchiectasis, uncomplicated; K21.9 Gastro-esophageal reflux disease without esophagitis; I95.9 Hypotension, unspecified; Z79.52 Long term (current) use of systemic steroids; K59.03 Drug induced constipation; T40.2X5A Adverse effect of other opioids, initial encounter; R09.02 Hypoxemia; R06.89 Other abnormalities of breathing; B95.2 Enterococcus as the cause of diseases classified elsewhere; Z85.3 Personal history of malignant neoplasm of breast; Z90.13 Acquired absence of bilateral breasts and nipples; Z92.3 Personal history of irradiation; Z79.69 Long term (current) use of other immunomodulators and immunosuppressants; Z88.1 Allergy status to other antibiotic agents; Z88.5 Allergy status to narcotic agent; Z79.84 Long term (current) use of oral hypoglycemic drugs; Z79.899 Other long term (current) drug therapy
CPT/HCPCS: 71045; 71046; 74018; 74177; 76700; 80048; 80053; 80202; 81003; 81015; 82570; 82962; 83036; 83605; 83735; 83935; 84100; 84145; 84300; 85025; 85027; 85610; 85730; 87040; 87045; 87046; 87070; 87077; 87086; 87324; 87328; 87329; 87427; 87449; 89055; 93005; 96361; 96374; 96375; 96376; 97116; 97163; 97167; 97530; 97535; 99285; P9047; Q9967